=== PATIENT | male | born 1940 | race Native Hawaiian/Other Pacific Islander ===

== ENCOUNTER 2024-05-06 08:01 | Inpatient (IN) | payer MEDICARE, MEDICAID, SELFPAY ==
[2024-05-06] VITALS (90 sets, daily range): BP systolic 57–147; BP diastolic 34–96; PULSE 76–154; RESP 16–30; TEMP 34.5–38.3; O2SAT 88–100; BMI 21.9; BMI 18.3; BMI 16.4
--- NOTE | 2024-05-06 08:02 | PC.NURSE ---
PT ARRIVED BY AMBULANCE IN RESPIRATORY DISTRESS. PER MEDIC, FAMILY WOKE AT 0700 AND FOUND PT STRUGGLING TO BREATH AND FAMILY GAVE NEB TREATMENT. MEDIC PUT PT ON CPAP IN ROUTE. PT ARRIVED NOT TALKING, COLD TO TOUCH, EXTREMITIES MOTTLED. DR. SUN NOTIFIED
--- NOTE | 2024-05-06 08:03 | PC.NURSE ---
DR. SUN IN ROOM TO SEE PT
--- NOTE | 2024-05-06 08:06 | PC.NURSE ---
Dr. Hernandez verbal order for ROXANNE YEPEZ for assistance; pt still have pulses at this time. CODE BLUE initiated at this time.
[2024-05-06] MEDS: ETOMIDATE INJ 2 MG/ML VIAL 10 ML 20 MG IVP ×2 (08:11→10:14)
[2024-05-06] MEDS: ROCURONIUM INJ 10 MG/ML VIAL 10 ML 50 MG IVP (08:11)
--- NOTE | 2024-05-06 08:16 | EDNOTE_ITS ---
<Statement entered by Leonard Hernandez MD - 05/06/24 19:02> As co-signing physician, I was present and available for consult prn. I concur with the plan and care as documented by the midlevel provider. ED SOB =RME/HPI General Chief Complaint: Shortness of Breath/Dyspnea Stated Complaint: SOB Time Seen by Provider: 05/06/24 08:18 Arrival date/time: 05/06/24 08:01 RME / HPI RME / HPI Narrative: Patient is a 83 year old male presenting to the ED BIBA form home for reported difficulty breathing, patient arrives on CPAP. Nonverbal at this time. Known history of AFIB, lung cancer. Related Data Home Medications ?Medication ?Instructions ?Recorded ?Confirmed albuterol sulfate 2.5 mg/3 mL 2.5 mg inhalation Q6H PRN 09/08/22 03/25/23 (0.083 %) solution for nebulization Shortness Of Breath Or Wheezing albuterol sulfate 90 mcg/actuation 90 mcg inhalation TID PRN 09/08/22 03/25/23 aerosol inhaler (Ventolin HFA) Shortness Of Breath Or Wheezing metformin 500 mg tablet 500 mg PO BID 09/08/22 03/25/23 prednisone 10 mg tablet 10 mg PO QDAY 09/08/22 03/25/23 simvastatin 20 mg tablet 20 mg PO HS 09/08/22 03/25/23 Previous Rx's ?Medication ?Instructions ?Recorded fluticasone fur. 200 mcg-umeclid 1 inh inhalation QDAY #60 ea 03/29/23 62.5 mcg-vilant 25 mcg inhalat.powder (Trelegy Ellipta) albuterol sulfate 2.5 mg/3 mL 2.5 mg (3 mL) inhalation Q4H PRN 07/20/23 (0.083 %) solution for nebulization shortness of breath or wheezing #90 mL albuterol sulfate 90 mcg/actuation 2 inh inhalation Q4H PRN shortness 07/20/23 aerosol inhaler of breath or wheezing #8.5 grams Allergies Allergy/AdvReac Type Severity Reaction Status Date / Time No Known Allergies Allergy Verified 04/12/24 04:22 Review of Systems Review of Systems ROS Unobtainable: unobtainable due to mental status ED Exam Narrative Physical exam: GEN. APPEARANCE: The patient arrives in respiratory distress, lying on the gurney, frail, cachectic, GCS 6, cold to the touch. VITALS: All vitals were reviewed and the pulse ox is 80% on Cpap, indicates for intubation HEENT: Normocephalic, atraumatic. Pupils are equal and reactive. Oral mucosa is moist. Patent Nares NECK: Supple, nontender, no thyromegaly, no meningismus, no JVD, no step offs CHEST: Symmetrical, atraumatic, and with equal expansion , Nontender on palpation no deformity and no crepitus. CARDIOVASCULAR: Patient is tachycardic no murmur or gallop rub LUNGS:Agonal breathing ABDOMEN: Soft, flat, nontender to palpation, no guarding or rebound tenderness. There are no abnormal masses palpated. Active and normal bowel sounds. EXTREMITIES: Nontender. No edema. No cyanosis. Patient is able to move all 4 extremities well, with full ROM and good CSM. SKIN: cold to touch and dry, no jaundice or rashes noted. MUSCULOSKELETAL: No lubar or midline bony tenderness. There is no CVA tenderness. No paraspinal muscle spasm or tenderness. NEURO: Patient is GCS 6. PSYCHIATRIC: Patient unconscious Rectal Exam Rectal exam: Present heme (+) stool and black stool Course Course Course Narrative: 0835 Sepsis alert initiated. Orders made at this time are congruent with ED Adult Sepsis Order List. Re-evaluation is to be completed 0905 Sepsis reassessment performed consisting of lab review, vitals, physical exam including auscultation of heart, lungs, and visual evaluation of capillary refills, mucosal membranes and extremities 1140 Discussed with Family, states the patient was extremely verbal about wanting to maintain being a full code. Patient was discussed with [facility]. They do not have interventional pulmonology available at their facility. Ultimately, the best we can do at this point is to admit the patient here at [facility] and treat him with antibiotics. Quality Measures Possible source: pulmonary Blood cultures ordered: yes Antibiotic ordered: Yes Pertinent labs: 05/06/24 05/06/24 05/06/24 08:38 10:13 12:10 Lactic Acid 3.9 H mMol/L 5.6 H* mMol/L (0.4-2.0) (0.4-2.0) Procalcitonin 0.13 ng/ml (0.0-0.49) sepsis Orders Category Date Time Status Admit to Inpatient Status Routine Admission 05/06/24 17:38 Active Patient Condition Routine Admission 05/06/24 17:38 Ordered 24 HR Medical Restraints Q2HR Care 05/06/24 08:10 Active Bedside COVID-19 Antigen Test NOW Care 05/06/24 08:[address] Screening NOW Care 05/06/24 08:21 Active Temperature Logging Operator STAT Care 05/06/24 08:36 Active Continuous Pulse Oximetry STAT Care 05/06/24 08:36 Completed EKG (ED ONLY) *Do not use* NOW Care 05/06/24 08:20 Completed Emergency Titration Protocol Stat Care 05/06/24 10:09 Ordered Occult Blood,Stool (Nursing) NOW Care 05/06/24 09:18 Active Strict Intake and Output Routine Care 05/06/24 08:[address] chest abdomen pelvis w Stat Exams 05/06/24 08:[address] head/brain wo con Stat Exams 05/06/24 08:19 Completed EKG (ED Only) Stat Exams 05/06/24 08:19 Ordered XR chest 1V SEPSIS PROTOCOL Stat Exams 05/06/24 08:38 Completed ABG [Arterial Blood Gas] Stat Lab 05/06/24 06:25 Completed Acetaminophen Stat Lab 05/06/24 17:42 Completed Arterial Blood Gas Stat Lab 05/06/24 09:15 Completed B-Type Natriuretic Peptide Stat Lab 05/06/24 09:02 Completed Blood Culture (Lab) Stat Lab 05/06/24 08:55 Received CBC Stat Lab 05/06/24 08:38 Completed CMP [Comprehensive Metabolic Panel] Stat Lab 05/06/24 10:13 Completed Drug Screen,Urine Stat Lab 05/06/24 08:37 Completed LDH (Lactate Dehydrogenase) Stat Lab 05/06/24 10:13 Completed Lactate (Lactic Acid) Stat Lab 05/06/24 08:38 Completed Lactic Acid, 3 HR Stat Lab 05/06/24 12:10 Completed Lipase Stat Lab 05/06/24 10:13 Completed Magnesium Stat Lab 05/06/24 10:13 Completed Occult Blood, Stool (LAB) Stat Lab 05/06/24 09:20 Completed PT [Prothrombin Time with INR] Stat Lab 05/06/24 08:38 Completed PTT [Partial Thromboplastin Time] Stat Lab 05/06/24 08:38 Completed Phosphorous Stat Lab 05/06/24 10:13 Completed Procalcitonin Stat Lab 05/06/24 10:13 Completed Sputum Culture and Gram Stain Stat Lab 05/06/24 08:30 Results TSH [Thyroid Stimulating Hormone] Stat Lab 05/06/24 10:13 Completed Troponin I Stat Lab 05/06/24 10:13 Completed UA [Urinalysis] Stat Lab 05/06/24 08:37 Completed Urine Culture Stat Lab 05/06/24 08:37 Received Acetaminophen Ivpb [Ofirmev Inj] Med 05/06/24 17:10 Discontinued 1,000 mg in 100 ml IV X1 Acetaminophen Supp [Tylenol Supp] Med 05/06/24 17:37 Active 650 mg CA Q4HR PRN Acetaminophen Tab [Tylenol Tab] Med 05/06/24 17:37 Active 650 mg PO Q4HR PRN Adenosine 6mg Inj [Adenocard Inj] Med 05/06/24 08:11 Discontinued 24 mg .ROUTE .STK-MED ONE Diltiazem Inj [Cardizem Inj] Med 05/06/24 08:19 Discontinued 15 mg IV X1 ONE Diltiazem Inj [Cardizem Inj] Med 05/06/24 17:08 Discontinued 15 mg IV X1 ONE Etomidate Inj [Amidate Inj] Med 05/06/24 08:03 Discontinued 20 mg .ROUTE .STK-MED ONE Etomidate Inj [Amidate Inj] Med 05/06/24 08:14 Discontinued 20 mg IVP X1 ONE Etomidate Inj [Amidate Inj] Med 05/06/24 10:13 Discontinued 20 mg IVP X1 ONE Piper/Tazo 3.375 gm [Zosyn] Med 05/06/24 08:36 Discontinued 3.375 gm in 50 ml IV X1 Piper/Tazo Inj [Zosyn Inj] 3.375 gm Med 05/06/24 17:11 Active Sodium Chloride 0.9% (P) [Ns 0.9% (P)] 50 ml IV Q6HR Propofol 1,000 mg Ivpb [Diprivan Ivpb] Med 05/06/24 09:20 Active 1,000 mg in 100 ml IV 5 mcg/kg/min Rocuronium Inj [Zemuron Inj] Med 05/06/24 08:03 Discontinued 100 mg .ROUTE .STK-MED ONE Rocuronium Inj [Zemuron Inj] Med 05/06/24 08:13 Discontinued 50 mg IVP X1 ONE Sodium Chloride 0.9% 1000 ml [Ns] 1,638 ml Med 05/06/24 12:39 Discontinued IV 1,638 mls/hr Vancomycin Inj 1,000 mg Med 05/06/24 12:41 Discontinued Sodium Chloride 0.9% 250 ml [Ns] 250 ml IV X1 Vancomycin Pharmacy to Dose Med 05/06/24 17:15 Active 1 each IV QDAY fentaNYL 2,500 MCG/250 ML BAG [Sublimaze Inj 2,500 MCG/ Med 05/06/24 09:22 Active 250 ML BAG] 2,500 mcg in 250 ml IV 25 mcg/hr Code Status Routine Oth 05/06/24 17:37 Completed Volume Ventilator Stat RT 05/06/24 Active Vital Signs Vital signs: Vital Signs Temperature 95.8 F L 05/06/24 08:02 Pulse Rate 154 H 05/06/24 08:02 Respiratory Rate 23 H 05/06/24 08:02 Blood Pressure 127/93 H 05/06/24 08:02 Pulse Oximetry (%) 88 L 05/06/24 08:02 Oxygen Delivery Method CPAP 05/06/24 08:02 Procedures -ED Intubation sedative: Etomidate Mg Given: 20 paralytic: Rocuronium Mg Given: 50 Laryngoscope: fiber optic video scope Assist Device Used: fiber optic device ET Tube Size: 7.5 ET Tube Uncuffed: No Tube Secured Depth (cm): 24 Tube Secured Location: other (gum) Tube Placement Confirmation: visualized tube passing through cords and equal breath sounds bilaterally Patient Tolerated Procedure: well and no complications Intubation Complications: none Shortness of Breath / Dyspnea Patient data External records reviewed:: [facility] previous records and EMS form Clinical information provided by:: EMS Social determinants that could affect healthcare access:: none Patient has the following chronic illnesses:: AFIB, lung cancer How is presenting disease/condition affected by chronic disease/condition?: exacerbated by Evaluation data The following diagnostics were reviewed and interpreted by me:: lab results and radiology exam(s) Lab and/or radiology exams considered but not ordered:: none Interpretation Summary: Ordering Physician: Leonard Hernandez MD Date of Service: 05/06/24 Procedure(s): CT head/brain wo con Accession Number(s): [id number] cc: Zion Pérez MD; Leonard Hernandez MD; Camilo Wong MD~ Examination: CT brain head without contrast. 2-D sagittal coronal reconstructions Date and time of exam:April 09, 2024 1119 hrs. Indications: Cardiopulmonary arrest CTDI: vol (mGy):46.2 DLP: (mGycm):974 Technique: Multiple CT axial sections of the brain have been obtained, 5 mm slice thickness. Contrast has not been administered. 2-D sagittal, coronal reconstructions have been obtained Low dose protocols were performed. One or more of the following dose reduction techniques were used; automated exposure control, adjustment of the mA and/or KV according to patient size, use of iterative reconstruction technique. Findings: No significant ventricular enlargement. Intra-axial or extra-axial hemorrhage density is not seen. No mass effect or midline shift Basal cisterns are not remarkable. Fourth ventricle is midline. Cranial vault intact. Impression: Negative for acute hemorrhage, mass effect or midline shift Dictated By: Camilo Wong MD Signed By: <Electronically signed by Camilo Wong MD in OV> 05/06/24 1158 Ordering Physician: Leonard Hernandez MD Date of Service: 05/06/24 Procedure(s): CT chest abdomen pelvis w Accession Number(s): [id number] cc: Zion Pérez MD; Leonard Hernandez MD; Camilo Wong MD~ Examination: CT chest with intravenous contrast CT abdomen with intravenous contrast CT pelvis with intravenous contrast 2-D coronal and sagittal reconstructions Time of exam: May 06, 2024 11:20 AM Indication: Status post cardiopulmonary arrest, post intubation this morning CTDI: vol (mGy) : 8.49 DLP: (mGycm): 565 Technique: Multiple axial images of the chest, abdomen and pelvis with intravenous contrast, 3.0 mm slice thickness. Images obtained post intravenous injection Isovue 370 60 cc 2-D sagittal and coronal reconstructions. Low dose protocols were performed. One or more of the following dose reduction techniques were used; automated exposure control, adjustment of the mA and/or KV according to patient size, use of iterative reconstruction technique. 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 This mass occludes the upper and lower left bronchial tree Are a no thoracic aortic aneurysmal dilatation are normal in level of the Call No pulmonary artery emboli Moderate right mild to moderate left pleural fluid probably 60 pneumonia diffusely in the left upper lobe Moderate vascular congestion Pericardial effusion with focal fluidic in the pericardium, left side laterally measuring up to 26 mm on the right side anteriorly measuring 20 mm on was No focal liver or splenic lesions No definite gallstones There is aorta iliac stet which is opacified with infrarenal abdominal aorta 6.9 cm transverse dimension No bowel obstruction or diverticulitis Large amount of stool in the rectum No significant prostatomegaly Impression: 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 Dictated By: Camilo Wong MD Signed By: <Electronically signed by Camilo Wong MD in OV> 05/06/24 1158 Medications / Prescriptions Medications or Prescriptions considered but not ordered:: none Medication administrations:: Medication Administration History Acetaminophen (Acetaminophen 325 Mg Tablet) 650 mg PO Q4HR PRN PRN Reason: PAIN SCALE 1-3 (mild Stop: 06/05/24 17:36 Acetaminophen (Acetaminophen Supp 650 Mg Supp) 650 mg CA Q4HR PRN PRN Reason: PAIN SCALE 1-3 (mild Stop: 06/05/24 17:36 Propofol (Diprivan Ivpb) 1,000 mg in 100 mls @ 1.633 mls/hr IV .Q24H PRN; Protocol PRN Reason: PER PROTOCOL Stop: 06/05/24 09:19 Last Titration: 05/06/24 18:12 Dose: 0 mcg/kg/min, 0 mls/hr Documented By: Titration: 05/06/24 18:00 Dose: 25 mcg/kg/min, 8.165 mls/hr Documented By: Titration: 05/06/24 17:05 Dose: 25 mcg/kg/min, 8.165 mls/hr Documented By: Titration: 05/06/24 17:00 Dose: 25 mcg/kg/min, 8.165 mls/hr Documented By: Titration: 05/06/24 14:00 Dose: 30 mcg/kg/min, 9.798 mls/hr Documented By: Titration: 05/06/24 13:20 Dose: 30 mcg/kg/min, 9.798 mls/hr Documented By: Titration: 05/06/24 13:15 Dose: 30 mcg/kg/min, 9.798 mls/hr Documented By: Titration: 05/06/24 13:10 Dose: 25 mcg/kg/min, 8.165 mls/hr Documented By: Titration: 05/06/24 13:05 Dose: 20 mcg/kg/min, 6.532 mls/hr Documented By: Titration: 05/06/24 13:00 Dose: 15 mcg/kg/min, 4.899 mls/hr Documented By: Titration: 05/06/24 12:30 Dose: 10 mcg/kg/min, 3.266 mls/hr Documented By: Titration: 05/06/24 12:00 Dose: 10 mcg/kg/min, 3.266 mls/hr Documented By: Titration: 05/06/24 11:34 Dose: 10 mcg/kg/min, 3.266 mls/hr Documented By: Titration: 05/06/24 11:00 Dose: 10 mcg/kg/min, 3.266 mls/hr Documented By: Titration: 05/06/24 10:45 Dose: 10 mcg/kg/min, 3.266 mls/hr Documented By: Titration: 05/06/24 10:40 Dose: 15 mcg/kg/min, 4.899 mls/hr Documented By: Titration: 05/06/24 10:35 Dose: 20 mcg/kg/min, 6.532 mls/hr Documented By: Titration: 05/06/24 10:31 Dose: 25 mcg/kg/min, 8.165 mls/hr Documented By: Titration: 05/06/24 10:20 Dose: 30 mcg/kg/min, 9.798 mls/hr Documented By: Titration: 05/06/24 10:15 Dose: 30 mcg/kg/min, 9.798 mls/hr Documented By: Titration: 05/06/24 10:10 Dose: 25 mcg/kg/min, 8.165 mls/hr Documented By: Titration: 05/06/24 10:05 Dose: 20 mcg/kg/min, 6.532 mls/hr Documented By: Titration: 05/06/24 10:00 Dose: 15 mcg/kg/min, 4.899 mls/hr Documented By: Titration: 05/06/24 09:51 Dose: 10 mcg/kg/min, 3.266 mls/hr Documented By: Admin: 05/06/24 09:46 Dose: 5 mcg/kg/min, 1.633 mls/hr Documented By: GM Co-signed By: [facility] Fentanyl Citrate (Sublimaze Inj 2,500 Mcg/250 Ml Bag) 2,500 mcg in 250 mls @ 2.5 mls/hr IV .Q24H PRN; Protocol PRN Reason: PER PROTOCOL Stop: 05/11/24 09:21 Last Titration: 05/06/24 18:00 Dose: 50 mcg/hr, 5 mls/hr Documented By: Titration: 05/06/24 17:00 Dose: 50 mcg/hr, 5 mls/hr Documented By: Titration: 05/06/24 16:00 Dose: 50 mcg/hr, 5 mls/hr Documented By: Titration: 05/06/24 15:00 Dose: 50 mcg/hr, 5 mls/hr Documented By: Titration: 05/06/24 14:00 Dose: 50 mcg/hr, 5 mls/hr Documented By: Titration: 05/06/24 13:08 Dose: 50 mcg/hr, 5 mls/hr Documented By: Titration: 05/06/24 12:30 Dose: 25 mcg/hr, 2.5 mls/hr Documented By: Titration: 05/06/24 12:00 Dose: 25 mcg/hr, 2.5 mls/hr Documented By: Titration: 05/06/24 11:30 Dose: 25 mcg/hr, 2.5 mls/hr Documented By: Titration: 05/06/24 11:00 Dose: 25 mcg/hr, 2.5 mls/hr Documented By: Titration: 05/06/24 10:30 Dose: 25 mcg/hr, 2.5 mls/hr Documented By: Titration: 05/06/24 10:10 Dose: 50 mcg/hr, 5 mls/hr Documented By: Titration: 05/06/24 10:00 Dose: 25 mcg/hr, 2.5 mls/hr Documented By: Admin: 05/06/24 09:46 Dose: 25 mcg/hr, 2.5 mls/hr Documented By: GM Co-signed By: [facility] Piperacillin Sod/Tazobactam (Sod 3.375 gm/ Sodium Chloride) 50 mls @ 100 mls/hr IV Q6HR KEM Stop: 05/13/24 17:10 Last Infusion: 05/06/24 17:55 Dose: Infused Documented By: Admin: 05/06/24 17:24 Dose: 100 mls/hr Documented By: Norepinephrine Bitartrate (Levophed In Ns 16mg/250ml) 16 mg in 250 mls @ 2.126 mls/hr IV .Q24H PRN; Protocol PRN Reason: PER protocol Stop: 06/05/24 17:57 Norepinephrine Bitartrate (Levophed In Ns 16mg/250ml) 16 mg in 250 mls @ 2.126 mls/hr IV .Q24H PRN; Protocol PRN Reason: PER PROTOCOL Stop: 06/05/24 17:59 Last Titration: 05/06/24 19:00 Dose: 0.14 mcg/kg/min, 5.953 mls/hr Documented By: Titration: 05/06/24 18:55 Dose: 0.16 mcg/kg/min, 6.804 mls/hr Documented By: Titration: 05/06/24 18:50 Dose: 0.16 mcg/kg/min, 6.804 mls/hr Documented By: Titration: 05/06/24 18:45 Dose: 0.18 mcg/kg/min, 7.654 mls/hr Documented By: Titration: 05/06/24 18:39 Dose: 0.18 mcg/kg/min, 7.654 mls/hr Documented By: Titration: 05/06/24 18:35 Dose: 0.18 mcg/kg/min, 7.654 mls/hr Documented By: Titration: 05/06/24 18:26 Dose: 0.2 mcg/kg/min, 8.505 mls/hr Documented By: Titration: 05/06/24 18:22 Dose: 0.2 mcg/kg/min, 8.505 mls/hr Documented By: Titration: 05/06/24 18:18 Dose: 0.12 mcg/kg/min, 5.103 mls/hr Documented By: Titration: 05/06/24 18:13 Dose: 0.1 mcg/kg/min, 4.252 mls/hr Documented By: Titration: 05/06/24 18:10 Dose: 0.09 mcg/kg/min, 3.827 mls/hr Documented By: Titration: 05/06/24 18:05 Dose: 0.07 mcg/kg/min, 2.977 mls/hr Documented By: Admin: 05/06/24 18:00 Dose: 0.05 mcg/kg/min, 2.126 mls/hr Documented By: Pharmacy Consult (Vancomycin Pharmacy To Dose 1 Each Each) 1 each IV QDAY KEM Stop: 06/05/24 17:14 Last Admin: 05/06/24 17:25 Dose: Not Given Documented By: Non-Admin Reason: Duplicate Medication on eMAR Discontinued Medications Adenosine (Adenosine Inj 3 Mg/Ml Vial) Confirm Administered Dose 18 mg .ROUTE .STK-MED ONE Stop: 05/06/24 08:12 Last Admin: 05/06/24 08:45 Dose: Not Given Documented By: Non-Admin Reason: Change of Condition Diltiazem HCl (Diltiazem Inj 5 Mg/Ml Vial 5 Ml) 15 mg IV X1 ONE Stop: 05/06/24 08:20 Last Admin: 05/06/24 08:49 Dose: Not Given Documented By: Non-Admin Reason: Cancelled by Provider Diltiazem HCl (Diltiazem Inj 5 Mg/Ml Vial 5 Ml) 15 mg IV X1 ONE Stop: 05/06/24 17:09 Last Admin: 05/06/24 17:13 Dose: 15 mg Documented By: Etomidate (Etomidate Inj 2 Mg/Ml Vial 10 Ml) Confirm Administered Dose 20 mg .ROUTE .STK-MED ONE Stop: 05/06/24 08:04 Last Admin: 05/06/24 08:11 Dose: Not Given Documented By: Non-Admin Reason: Duplicate Medication on eMAR Etomidate (Etomidate Inj 2 Mg/Ml Vial 10 Ml) 20 mg IVP X1 ONE Stop: 05/06/24 08:15 Last Admin: 05/06/24 08:11 Dose: 20 mg Documented By: Etomidate (Etomidate Inj 2 Mg/Ml Vial 10 Ml) 20 mg IVP X1 ONE Stop: 05/06/24 10:14 Last Admin: 05/06/24 10:14 Dose: 20 mg Documented By: Piperacillin/Tazobactam/Dextrose (Zosyn) 3.375 gm in 50 mls @ 100 mls/hr IV X1 ONE Stop: 05/06/24 09:05 Last Infusion: 05/06/24 09:39 Dose: Infused Documented By: Admin: 05/06/24 09:08 Dose: 100 mls/hr Documented By: [facility] Sodium Chloride (Ns) 1,638 mls @ 1,638 mls/hr 30 ml/kg infuse over 60 min (1638 ml) IV .Q1H ONE Stop: 05/06/24 13:38 Last Infusion: 05/06/24 14:21 Dose: Infused Documented By: Admin: 05/06/24 12:44 Dose: 1,638 mls/hr Documented By: Vancomycin HCl 1,000 mg/ (Sodium Chloride) 250 mls @ 150 mls/hr IV X1 ONE Stop: 05/06/24 14:20 Last Infusion: 05/06/24 14:39 Dose: Infused Documented By: Admin: 05/06/24 12:57 Dose: 150 mls/hr Documented By: Acetaminophen (Ofirmev Inj) 1,000 mg in 100 mls @ 250 mls/hr IV X1 ONE Stop: 05/06/24 17:33 Last Infusion: 05/06/24 17:55 Dose: Infused Documented By: Admin: 05/06/24 17:18 Dose: 250 mls/hr Documented By: Norepinephrine Bitartrate (Levophed In Ns 16mg/250ml) Confirm Administered Dose 16 mg in 250 mls @ ud IV .STK-MED ONE Stop: 05/06/24 17:51 Last Admin: 05/06/24 18:00 Dose: Not Given Documented By: MO Non-Admin Reason: Duplicate Medication on eMAR Rocuronium Left Hand (Rocuronium Inj 10 Mg/Ml Vial 10 Ml) Confirm Administered Dose 100 mg .ROUTE .STK-MED ONE Stop: 05/06/24 08:04 Last Admin: 05/06/24 08:11 Dose: Not Given Documented By: MO Non-Admin Reason: Duplicate Medication on eMAR Rocuronium Left Hand (Rocuronium Inj 10 Mg/Ml Vial 10 Ml) 50 mg IVP X1 ONE Stop: 05/06/24 08:14 Last Admin: 05/06/24 08:11 Dose: 50 mg Documented By: MO Co-signed By: HAZEL see above Consultations Consultation(s) initiated? (list below): Yes Diagnosis Shortness of Breath Differential Diagnosis: community acquired pneumonia and pulmonary embolism Most likely diagnosis given after review of the tests above:: sepsis, hemacult positive stool. Admission Indicated Admission indicated?: indicated Admission Request Was there a request for admission?: Yes Admission Attestation Admission request attestation: Discussed case with [] from Hospitalist service regarding admission. Discussed patients ED course, exam findings, labs, and radiology results. The Hospitalist [agrees,declines] to accept the patient for admission. Disposition Plan Disposition Plan: Admit Critical Care Time Critical Care Time Critical Care Time: Yes Total Critical Care Time (min.): 120 Attestation: The high probability of sudden, clinically significant deterioration in the patient?s condition required the highest level of my preparedness to intervene urgently. The services I provided to this patient were to treat and/or prevent clinically significant deterioration. Services included the following: chart data review, reviewing nursing notes and/or old charts, documentation time, domestic travel consultant collaboration regarding findings and treatment options, medication orders and management, direct patient care, vital sign assessments and ordering, interpreting and reviewing diagnostic studies and lab tests. Aggregate critical care time includes only time during which I was engaged in work directly related to the patient?s care, as described above, whether at bedside or elsewhere in the Emergency Department. It did not include time spent performing other reported procedures or the services of residents, students, nurses or physician assistants. Discharge Plan Plan Patient Disposition: Admit Acute Care w/in Hospital Patient condition on transfer: Stable Problem List Clinical Impression: Acute respiratory failure
--- NOTE | 2024-05-06 08:18 | PC.NURSE ---
DR. SUN AT BEDSIDE ATTEMPTING TO INSERT LEFT IJ. UNSUCCESSFUL INSERTION. PRESSURE APPLIED OVER GAUZE AND TAPED OVER.
--- NOTE | 2024-05-06 08:19 | XR_ITS ---
Examination: CT brain head without contrast. 2-D sagittal coronal reconstructions Date and time of exam:April 09, 2024 1119 hrs. Indications: Cardiopulmonary arrest CTDI: vol (mGy):46.2 DLP: (mGycm):974 Technique: Multiple CT axial sections of the brain have been obtained, 5 mm slice thickness. Contrast has not been administered. 2-D sagittal, coronal reconstructions have been obtained Low dose protocols were performed. One or more of the following dose reduction techniques were used; automated exposure control, adjustment of the mA and/or KV according to patient size, use of iterative reconstruction technique. Findings: No significant ventricular enlargement. Intra-axial or extra-axial hemorrhage density is not seen. No mass effect or midline shift Basal cisterns are not remarkable. Fourth ventricle is midline. Cranial vault intact. Impression: Negative for acute hemorrhage, mass effect or midline shift
--- NOTE | 2024-05-06 08:19 | XR_ITS ---
Examination: CT chest with intravenous contrast CT abdomen with intravenous contrast CT pelvis with intravenous contrast 2-D coronal and sagittal reconstructions Time of exam: May 06, 2024 11:20 AM Indication: Status post cardiopulmonary arrest, post intubation this morning CTDI: vol (mGy) : 8.49 DLP: (mGycm): 565 Technique: Multiple axial images of the chest, abdomen and pelvis with intravenous contrast, 3.0 mm slice thickness. Images obtained post intravenous injection Isovue 370 60 cc 2-D sagittal and coronal reconstructions. Low dose protocols were performed. One or more of the following dose reduction techniques were used; automated exposure control, adjustment of the mA and/or KV according to patient size, use of iterative reconstruction technique. 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 This mass occludes the upper and lower left bronchial tree Are a no thoracic aortic aneurysmal dilatation are normal in level of the Call No pulmonary artery emboli Moderate right mild to moderate left pleural fluid probably 60 pneumonia diffusely in the left upper lobe Moderate vascular congestion Pericardial effusion with focal fluidic in the pericardium, left side laterally measuring up to 26 mm on the right side anteriorly measuring 20 mm on was No focal liver or splenic lesions No definite gallstones There is aorta iliac stet which is opacified with infrarenal abdominal aorta 6.9 cm transverse dimension No bowel obstruction or diverticulitis Large amount of stool in the rectum No significant prostatomegaly Impression: 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
--- NOTE | 2024-05-06 08:36 | PC.NURSE ---
Pt started on Biar Hugger warmer at this time with warm blankets as well.
--- NOTE | 2024-05-06 08:38 | XR_ITS ---
Examination: AP chest single view Technique: AP portable supine chest single view Exam date and time: May 06, 2024 0902 hrs. Indications: Sepsis protocol Comparison: April 12, 2024 Findings: Large pulmonary mass left upper lobe again noted Interval significant pneumonia left upper lobe Mild prominence left ventricle Significant pneumonia left base with moderate left pleural fluid Endotracheal tube tip 29 mm above keyla Moderate osteopenia Impression: Interval significant left upper lobe left base pneumonia Tracheal tube tip 29 mm above keyla
--- NOTE | 2024-05-06 08:40 | PC.NURSE ---
Attempted to insert NG tube in both nares multiple times (3 times on each Nares); unssucessful. Attempted to insert OG tube 4 times; unsuccessful. Unable to insert OG/NG tube at this time.
[2024-05-06 08:43] LABS: Lactate (Lactic Acid) 3.9 mMol/L (0.4-2.0)
[2024-05-06 08:47] LABS: Basophils # (Auto) 0.1 Thou/mm3 (0.0-0.2); Basophils % (Auto) 0 % (0-2.5); Eosinophils % (Auto) 0 % (0-10); Hematocrit 41.1 % (41.0-53.0); Hemoglobin 12.4 g/dL (13.5-16.0); Immature Granulocytes % (Auto) 1 % (0-0); Immature Granulocytes Auto 0.25 Thou/mm3 (0.00-0.00); Lymphocytes # (Auto) 2.3 Thou/mm3 (1.0-4.8); Lymphocytes % (Auto) 12 % (10-50); Mean Corpuscular HGB Conc 30.2 g/dl (31.0-37.0); Mean Corpuscular Hemoglobin 23.2 pg (25.0-35.0); Mean Corpuscular Volume 77 fL (80-100); Monocytes # (Auto) 1.7 Thou/mm3 (0.0-0.8); Monocytes % (Auto) 9 % (0-12); Neutrophils # (Auto) 14.9 Thou/mm3 (1.8-7.7); Neutrophils % (Auto) 78 % (37-80); Nucleated Red Blood Cell # 0.04 Thou/mm3 (0.00-0.00); Nucleated Red Blood Cell % 0 /100 WBC (0); Platelet Count 348 Thou/mm3 (140-440); RDW Standard Deviation 54.2 fL (35.1-43.9); Red Blood Count 5.35 Miln/mm3 (4.50-5.90); White Blood Count 19.2 Thou/mm3 (3.8-10.6)
--- NOTE | 2024-05-06 08:49 | PC.NURSE ---
Spoke to DR. SUN; per Dr. SUN, do not give diltiazem at this time; pt's HR 85 and NSR. Also, draw blood cultures first before giving Zosyn.
--- NOTE | 2024-05-06 08:50 | PC.NURSE ---
Lab called to draw pt's blood cultures at this time.
--- NOTE | 2024-05-06 09:00 | PC.NURSE ---
PT ARRIVED WITH CARDIAC RHYTHM SVT. THEN WENT IN AND OUT OF SVT AND AFIB/RVR BEFORE CONVERTING TO SINUS RHYTHM.
[2024-05-06 09:06] LABS: INR 1.1 (0.9-1.3); Partial Thromboplastin Time 28.2 Seconds (22.0-36.0)
[2024-05-06] MEDS: PIPER/TAZO 3.375 GM 3.375 GM/50 ML BAG IV (09:08)
[2024-05-06 09:22] LABS: Base Excess 8 (-3-3); HCO3 34 mEq/L (20-26); Inspired Oxygen, FIO2 100 %; O2 Saturation 101 % (91-98); PCO2 54 mmHg (32.0-48.0); PO2 406 mmHg (83-108); Puncture Site Right Brachial
[2024-05-06 09:23] LABS: Allen Test Not Performed
--- NOTE | 2024-05-06 09:36 | PC.NURSE ---
DR. SUN AT BEDSIDE WITH FAMILY, TALKING TO DAUGHTER, DAVID GARCIA.
[2024-05-06] MEDS: fentaNYL 2,500 MCG/250 ML BAG 2,500 MCG/250 ML BAG IV (09:46)
[2024-05-06] MEDS: PROPOFOL 1,000 MG IVPB 1,000 MG/100 ML VIAL 1.633 MG IV (09:46)
[2024-05-06 09:53] LABS: Collection Type, Urine Catheter
[2024-05-06 09:55] LABS: OBS Card Lot # 23001; OBS Developer Lot # 16006; OBS Performed By CHATK; OBS QC OK? Yes; Occult Blood, Stool Positive (Negative)
--- NOTE | 2024-05-06 10:09 | PC.NURSE ---
Dr. Hernandez notified that pt bucking the vent and moving extremities. Dr. Hernandez verbal order with readback, Titrate fentanyl drip up to 50mcg/hr.
[2024-05-06 10:15] LABS: B-Type Natriuretic Peptide 192 pg/mL (0-100)
--- NOTE | 2024-05-06 10:29 | PC.NURSE ---
Addendum entered by Fracisco Littlejohn RN 05/06/24 10:32: Per Dr. HERNANDEZ, Titrate down fentanyl drip per protocol as well. Original Note: Pt's BP dropped to 81/55 at this time; Dr. Hernandez made aware at bedside at this time. Per Dr. Hernandez, titrate down propofol per protocol.
[2024-05-06 10:31] LABS: Allen Test Not Performed; Base Excess 9 (-3-3); HCO3 34 mEq/L (20-26); Inspired Oxygen, FIO2 45 %; O2 Saturation 97 % (91-98); PCO2 49 mmHg (32.0-48.0); PO2 85 mmHg (83-108); Puncture Site Right Brachial; pH, Arterial 7.45 (7.35-7.45)
[2024-05-06 10:31] LABS: Bilirubin,Urine Negative (Negative); Blood,Urine Negative (Negative); Clarity,Urine Clear (Clear/Hazy); Color,Urine Yellow (Lt Yel-Yel); Glucose, Urine Negative (Negative); Hyaline Casts,Urine < 1 /hpf (0-1); Ketones,Urine Trace (Negative); Leukocyte Esterase,Urine Negative (Negative); Nitrite,Urine Negative (Negative); Protein,Urine 1+ (Neg - Trace); RBC,Urine 5 /hpf (0-3); Specific Gravity,Urine 1.024 (1.001-1.035); Squamous Epithelial Cell,Urine < 1 /hpf (0-5); Urobilinogen,Urine Negative mg/dL (0.0-1.0); WBC,Urine 6 /hpf (0-5)
[2024-05-06 10:38] LABS: Amphetamine/Methamp Scrn,U Negative (Negative); Barbiturate Screen,Urine Negative (Negative); Benzodiazepines Screen,Urine Negative (Negative); Benzoylecgonine Screen, Ur Negative (Negative); Fentanyl Screen,Urine Negative (Negative); Opiate Screen,Urine Negative (Negative); THC Screen,Urine Negative (Negative)
--- NOTE | 2024-05-06 10:42 | PC.NURSE ---
Delmi Velasco (daughter) next of kin contact #: [phone]
[2024-05-06 10:47] LABS: Alanine Aminotransferase 11 U/L (10-49); Albumin, Serum 3.7 gm/dL (3.4-4.8); Albumin/Globulin Ratio 1.5 (1.2-2.2); Alkaline Phosphatase 80 U/L (46-116); Anion Gap 7 (7-16); Aspartate Amino Transferase 26 U/L (0-34); BUN/Creatinine Ratio 21 Ratio (12-20); Bilirubin,Total 1.3 mg/dL (0.3-1.2); Blood Urea Nitrogen 15 mg/dL (9-23); Calcium 10.5 mg/dL (8.3-10.6); Calcium (Corrected) 10.7 mg/dL (8.5-10.1); Carbon Dioxide 31.4 mMol/L (20.0-31.0); Chloride 96 mMol/L (98-107); Creatinine (Component) 0.7 mg/dL (0.6-1.3); Estimated Creatinine Clearance 53.1 mL/min (>60); Globulin 2.5 gm/dL (2.3-3.5); Glucose 212 mg/dL (74-106); LDH (Lactate Dehydrogenase) 333 U/L (120-246); Lipase 38 U/L (12-53); Magnesium 1.8 mg/dL (1.6-2.6); Osmolality,Calculated 275 (275-295); Phosphorous 3.3 mg/dL (2.4-5.1); Potassium 4.2 mMol/L (3.4-5.1); Procalcitonin 0.13 ng/ml (0.0-0.49); Sodium 134 mMol/L (136-145); Thyroid Stimulating Hormone 0.77 uIU/mL (0.55-4.78); Total Protein 6.2 gm/dL (5.7-8.2); Troponin I < 0.020 ng/mL (0.0-0.045); eGFR > 60 See Note
--- NOTE | 2024-05-06 11:35 | PC.NURSE ---
DR. SUN IN CONFERENCE ROOM WITH MICROPHONE OPERATOR TO TALK WITH FAMILY ABOUT CODE STATUS. AT THIS TIME FAMILY STATING PT WANTED EVERYTHING DONE. FAMILY TO TALK AND THEN LET MD KNOW IF ANYTHING CHANGES
[2024-05-06 11:40] LABS: Reflex Lactate? Y
--- NOTE | 2024-05-06 12:00 | PC.NURSE ---
Jason hugger warmer turned off at this time.
--- NOTE | 2024-05-06 12:15 | PC.CC ---
ED Sieve Grader Tender assisted with end of life conversation with Next of Kin daughter Bessy Ma [phone] and family.
--- NOTE | 2024-05-06 12:33 | PC.NURSE ---
AUTOMOTIVE PARTS COUNTER ASSISTANT IN TO SEE PT AND TALK WITH DAUGHTER ABOUT RESULTS OF CT AND LABS.
[2024-05-06 12:35] LABS: Lactic Acid, 3 HR 5.6 mMol/L (0.4-2.0)
[2024-05-06] MEDS: SODIUM CHLORIDE 0.9% 1000 ML 1,638 ML 1638 ML IV (12:44)
[2024-05-06] MEDS: Vancomycin Inj 1,000 MG in SODIUM CHLORIDE 0.9% 250 ML 250 ML 150 MG IV (12:57)
--- NOTE | 2024-05-06 13:12 | PC.NURSE ---
FAMILY IN AND OUT OF ROOM TO SEE PT.
--- NOTE | 2024-05-06 13:13 | PC.NURSE ---
PT'S TANK TOP WAS CUT OFF AND PLACED IN BELONGINGS BAG. ID CARD GIVEN TO DAUGHTER YULIA
--- NOTE | 2024-05-06 13:17 | PC.NURSE ---
REMAINS OFF RAMIN HUGGER DUE TO NORMALIZED TEMP
--- NOTE | 2024-05-06 13:50 | PC.CM ---
Addendum entered by Marimar Cruz RN 05/06/24 18:02: [address] [facility] and informed pt will be admitted to ICU. 1730 Dr. Hernandez stated he spoke to Dr. Munoz and transfer is cancelled. Pt will be admitted to ICU. [address] Hernandez and informed [facility] stated they don't have interventional pulmonology services anymore. He stated he is going to speak to Dr. Munoz and let me know the outcome. 1719 received call from Sari at [facility] that they don't have interventional pulmonology services anymore. Addendum entered by Marimar Cruz RN 05/06/24 15:44: [address] [facility], she wants to speak with Dr. Munoz. Conference call connected. Addendum entered by Marimar Cruz RN 05/06/24 14:32: [address] [facility], spoke to Sari and initiated the transfer request. Addendum entered by Marimar Cruz RN 05/06/24 14:31: 1430 images pushed to [facility] through [facility]. Addendum entered by Marimar Cruz RN 05/06/24 13:56: [address] [facility]. Original Note: 1353 Due to working on a number of ED transfers at the same time, Unable to initiated the transfer request right away. [address] Munoz that pt needs to be transferred to [facility] for continuation of care, pt needs pulmonology services, ICU bed for diagnosis of lung ca.
--- NOTE | 2024-05-06 17:10 | PC.NURSE ---
RN at bedside; pt's HR jumping between 150s to 120's and temp of 101F; Dr. Hernandez made aware. Orders received for medications.
[2024-05-06] MEDS: DILTIAZEM INJ 5 MG/ML VIAL 5 ML 15 MG IV (17:13)
[2024-05-06] MEDS: ACETAMINOPHEN IVPB 1,000 MG/100 ML VIAL 250 MG IV (17:18)
[2024-05-06] MEDS: PIPER/TAZO INJ 3.375 GM in SODIUM CHLORIDE 0.9% (P) 50 ML IV (17:24)
--- NOTE | 2024-05-06 17:58 | PC.NURSE ---
Dr. Hernandez made aware that pt's is hypotensive; verbal orders received to start Levophed according to protocol.
[2024-05-06] MEDS: Norepinephrine/NS 16mg/250ml 16 MG/250 ML BAG 2.126 MG IV (18:00)
--- NOTE | 2024-05-06 18:12 | PC.NURSE ---
Addendum entered by Fracisco Littlejohn RN 05/06/24 18:17: @1812- Per Dr. Carbajal, stop propofol titration at this time as well. Original Note: RN spoke to Dr. Ganga Carbajal for emergency titration protocol; per Dr. Carbajal, Titrate levophed up to 0.1mcg/kg/min and keep fentanyl drip to 50mcg/hr.
--- NOTE | 2024-05-06 18:13 | ESHP_ITS ---
Documentation for date of: 05/06/24 HPI History of Present Illness Chief complaint: status post cardiac arrest History of present illness: The patient is a 83-year-old male with previous medical history of pulmonary mass, COPD on 2 L home oxygen, NIDDM, anemia with previous recent admission at [facility] and [facility] was brought in to the ED due to respiratory distress. He arrived on CPAP. According to the niece at the bedside, during the night he was experience cold sweats, in the morning his saturation started decreased to the 60s and ambulance was called. During his previous admission he had a workup regarding the pulmonary mass, he had BAL, and was recommended to perform biopsy. According to the niece, biopsy was not performed. Regarding his lung mass workup, he was pending MRI and PET scan for staging. She reported that he was significantly weak, physical activity was significantly restricted to going to the restroom. ED course: in the ED patient was intubated to respiratory failure and started on fluids and antibiotics. At approximately 6 PM, his MAP became <65, he was started on the levophed drip. [facility] was contacted for possible transfer, but did not proceed with it due to absence of interventional pulmonology services that could possibly improve patient's quality of life. Patient's decision maker Saul Schofield was contacted and provided with updates regarding his condition and was explained that his condition is critical and that prognosis is poor. She decided to switch CODE STATUS to DNR with Dr. Carbajal and Dr. Dave as witnesses. Review of Systems Review of Systems ROS Unobtainable: unobtainable due to mental status, unobtainable due to medical condition and due to endotracheal tube Exam Vital Signs Temp Pulse Resp BP Pulse Ox O2 Del Method FiO2 101 F H 123 H 18 57/37 L 96 Mechanical Ventilation 45 05/06/24 17:00 05/06/24 18:00 05/06/24 17:00 05/06/24 18:00 05/06/24 17:00 05/06/24 17:00 05/06/24 16:00 Narrative Exam Physical Exam General: Chronically ill-appearing frail elderly male. Sedated, intubated HEENT: Normocephalic, atraumatic, mucous membranes moist. Heart: Regular rate and rhythm, no murmurs. Lungs: Diminished breath sounds. Abdomen: Soft, nondistended, nontender, positive bowel sounds. ?No guarding or rebound tenderness. Neurologic: Sedated, no gross neurological deficit. Extremities: No edema. Skin: No rash or ecchymoses. Results: Labs 05/06/24 08:38 05/06/24 10:13 Labs: Short CBC 05/06/24 Range/Units 08:38 WBC 19.2 H (3.8-10.6) Thou/mm3 Hgb 12.4 L (13.5-16.0) g/dL Hct 41.1 (41.0-53.0) % Plt Count 348 D (140-440) Thou/mm3 BMP 05/06/24 10:13 Sodium 134 L Potassium 4.2 Chloride 96 L Carbon Dioxide 31.4 H BUN 15 Creatinine 0.7 Glucose 212 H Calcium 10.5 Cardiac Enzymes 05/06/24 Range/Units 10:13 Troponin I < 0.020 (0.0-0.045) ng/mL Liver Function 05/06/24 Range/Units 10:13 Total Bilirubin 1.3 H (0.3-1.2) mg/dL AST 26 (0-34) U/L ALT 11 (10-49) U/L Alkaline Phosphatase 80 (46-116) U/L Albumin 3.7 (3.4-4.8) gm/dL Urine 05/06/24 Range/Units 08:37 Urine Color Yellow (Lt Yel-Yel) Urine Clarity Clear (Clear/Hazy) Urine pH 6.0 (5.0-7.0) Ur Specific [place] 1.024 (1.001-1.035) Urine Protein 1+ A (Neg - Trace) Urine Glucose (UA) Negative (Negative) ABG Interpretation ABG results: 05/06/24 05/06/24 06:25 09:15 ABG pH 7.45 7.40 ABG pCO2 49 H 54 H ABG pO2 85 406 H D ABG HCO3 34 H 34 H ABG O2 Saturation 97 101 H ABG Base Excess 9 H 8 H Quality Measures Quality Measures sepsis Current suspected stage: sepsis Possible source: pulmonary Blood cultures ordered: yes Antibiotic ordered: Yes Advance care planning discussed with:: other Medications Home Medications and Allergies Home Medications ?Medication ?Instructions ?Recorded ?Confirmed ?Type albuterol sulfate 2.5 mg/3 mL 2.5 mg inhalation Q6H PRN 09/08/22 03/25/23 History (0.083 %) solution for nebulization Shortness Of Breath Or Wheezing albuterol sulfate 90 mcg/actuation 90 mcg inhalation TID PRN 09/08/22 03/25/23 History aerosol inhaler (Ventolin HFA) Shortness Of Breath Or Wheezing metformin 500 mg tablet 500 mg PO BID 09/08/22 03/25/23 History prednisone 10 mg tablet 10 mg PO QDAY 09/08/22 03/25/23 History simvastatin 20 mg tablet 20 mg PO HS 09/08/22 03/25/23 History Allergies Allergy/AdvReac Type Severity Reaction Status Date / Time No Known Allergies Allergy Verified 04/12/24 04:22 Visit Medications Acetaminophen (Acetaminophen 325 Mg Tablet) 650 mg PO Q4HR PRN PRN Reason: PAIN SCALE 1-3 (mild Stop: 06/05/24 17:36 Acetaminophen (Acetaminophen Supp 650 Mg Supp) 650 mg SC Q4HR PRN PRN Reason: PAIN SCALE 1-3 (mild Stop: 06/05/24 17:36 Propofol (Diprivan Ivpb) 1,000 mg in 100 mls @ 1.633 mls/hr IV .Q24H PRN; Protocol PRN Reason: PER PROTOCOL Stop: 06/05/24 09:19 Last Titration: 05/06/24 18:00 Dose: 25 mcg/kg/min, 8.165 mls/hr Fentanyl Citrate (Sublimaze Inj 2,500 Mcg/250 Ml Bag) 2,500 mcg in 250 mls @ 2.5 mls/hr IV .Q24H PRN; Protocol PRN Reason: PER PROTOCOL Stop: 05/11/24 09:21 Last Titration: 05/06/24 17:00 Dose: 50 mcg/hr, 5 mls/hr Piperacillin Sod/Tazobactam (Sod 3.375 gm/ Sodium Chloride) 50 mls @ 100 mls/hr IV Q6HR KEM Stop: 05/13/24 17:10 Last Infusion: 05/06/24 17:55 Dose: Infused Norepinephrine Bitartrate (Levophed In Ns 16mg/250ml) 16 mg in 250 mls @ 2.126 mls/hr IV .Q24H PRN; Protocol PRN Reason: PER protocol Stop: 06/05/24 17:57 Norepinephrine Bitartrate (Levophed In Ns 16mg/250ml) 16 mg in 250 mls @ 2.126 mls/hr IV .Q24H PRN; Protocol PRN Reason: PER PROTOCOL Stop: 06/05/24 17:59 Last Titration: 05/06/24 18:10 Dose: 0.09 mcg/kg/min, 3.827 mls/hr Pharmacy Consult (Vancomycin Pharmacy To Dose 1 Each Each) 1 each IV QDAY KEM Stop: 06/05/24 17:14 Last Admin: 05/06/24 17:25 Dose: Not Given Discontinued Medications Diltiazem HCl (Diltiazem Inj 5 Mg/Ml Vial 5 Ml) 15 mg IV X1 ONE Stop: 05/06/24 08:20 Last Admin: 05/06/24 08:49 Dose: Not Given Diltiazem HCl (Diltiazem Inj 5 Mg/Ml Vial 5 Ml) 15 mg IV X1 ONE Stop: 05/06/24 17:09 Last Admin: 05/06/24 17:13 Dose: 15 mg Etomidate (Etomidate Inj 2 Mg/Ml Vial 10 Ml) 20 mg IVP X1 ONE Stop: 05/06/24 08:15 Last Admin: 05/06/24 08:11 Dose: 20 mg Etomidate (Etomidate Inj 2 Mg/Ml Vial 10 Ml) 20 mg IVP X1 ONE Stop: 05/06/24 10:14 Last Admin: 05/06/24 10:14 Dose: 20 mg Piperacillin/Tazobactam/Dextrose (Zosyn) 3.375 gm in 50 mls @ 100 mls/hr IV X1 ONE Stop: 05/06/24 09:05 Last Infusion: 05/06/24 09:39 Dose: Infused Sodium Chloride (Ns) 1,638 mls @ 1,638 mls/hr 30 ml/kg infuse over 60 min (1638 ml) IV .Q1H ONE Stop: 05/06/24 13:38 Last Infusion: 05/06/24 14:21 Dose: Infused Vancomycin HCl 1,000 mg/ (Sodium Chloride) 250 mls @ 150 mls/hr IV X1 ONE Stop: 05/06/24 14:20 Last Infusion: 05/06/24 14:39 Dose: Infused Acetaminophen (Ofirmev Inj) 1,000 mg in 100 mls @ 250 mls/hr IV X1 ONE Stop: 05/06/24 17:33 Last Infusion: 05/06/24 17:55 Dose: Infused Rocuronium [place] (Rocuronium Inj 10 Mg/Ml Vial 10 Ml) 50 mg IVP X1 ONE Stop: 05/06/24 08:14 Last Admin: 05/06/24 08:11 Dose: 50 mg Assessment & Plan Plan The patient is a 83-year-old male with previous medical history of pulmonary mass, COPD on 2 L home oxygen, NIDDM, anemia with previous recent admission at [facility] and [facility] was brought in to the ED due to respiratory distress. He arrived on CPAP. According to the niece at the bedside, during the night he was experience cold sweats, in the morning his saturation started decreased to the 60s and ambulance was called. NEURO Patient is sedated and intubated. CT head negative for acute stroke or trauma. #No active problems Plan: ? Sedation with propofol fentanyl RASS goal is -3 CARDIO #Septic shock #Afib with RVR PAtient was given diltiazem 50 mg once. Plan: - telemetry monitoring - amiodarone drip started -levophed drip to maintain MAP>65 PULM # Acute hypoxic respiratory failure #Pulmonary mass #Postobstructive pneumonia Patient has a history of long-term smoking. No pulmonary mass was discovered in 2022, he underwent workup was recommended to perform biopsy of lung. During this admission, [facility] was contacted for possible transfer for bronchial stent placement, patient was not accepted for transfer due to absent interventional pulmonology service at [facility]. 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 compressing the left pulmonary artery segment and compressing the left bronchial tree Plan: - continue mechanical ventilation - Zosyn 05/06/24-present - Vancomycin 05/06/24-present - chest physiotherapy -sputum cultures sent 05/06 -monitor ABG GI #No active problems Pantoprazole for GI prophylaxis NEPHRO #No active problems URO #No active problems HEME #No active problems ENDO #No active problems ID #No active problems MSK #No active problems SKIN #No active problems DVT prophylaxis:lovenox GI prophylaxis: pantoprazole Diet: NPO Cruz: Present Lines: peripheral lines Antibiotics: vancomycin+zosyn CODE STATUS: DNR Reason for ICU care: acute hypoxic respiratory failure in the setting of pulmonary mass and postobstructive pneumonia Plan of care discussed with attending Dr. Munoz . Talisha Dave MD, PGY 1. Attending Provider Attestation/Addendum Patient seen and examined with the above resident, Talisha Dave MD. I agree with the findings, assessment, and plan of care as documented except for any differences below. Patient with recurrent admissions in lieu of his advanced lung CA, on chronic home O2 at 2L/min. Recently confirmed by biopsy at [facility]. Large tumor encasing DEIRDRE airway and pulmonary arterial branch. Suspect superimposed obstructive pneumonia now as well. With pericardial and pleural effusions. Significant weight loss as well in previous months/ fatigue. We did request assessment by IP at [facility], but no longer available and declined transfer at this time. Patient with admission to ICU for septic shock. Add on Vancomycin to Zosyn. Control HR with amiodarone. Patient off pressor sat time of assessment initially but subsequently with evolving shock. Lactic acid to be trended as well, rising in reflection of evolving shock. Patient with grim prognosis, I did explain to the daughter at bedside that inability to adequately clear postobstructive process will lead to worsening and overwhelming infection and unfortunately he is limited in options for treatment of his malignancy now especially with vascular involvement. Will need to have ongoing goals of care discussion with family daily with progress during ICU stay. Total critical care time: I personally spent 45 minutes for review of physiologic parameters, directing plan of care throughout the day, coordination of care and counseling patient's family at bedside. This is exclusive of time spent teaching housestaff or performing any separate billable procedures. Patient continues to require critical care services for acute on chronic hypoxic respiratory failure and severe sepsis/ septic shock with risk for further decline/ morbidity and mortality.
--- NOTE | 2024-05-06 18:16 | PC.NURSE ---
Per ICU, pt's BP must be stabilized prior to going to ICU room; Scarlet Lewis RN made aware.
--- NOTE | 2024-05-06 18:22 | PC.NURSE ---
Spoke to Dr. Carbajal and made aware that pt's BP is 79/45 with a MAP 49. Verbal order received for emergency titration protocol for levophed to 0.2mcg/kg/min.
--- NOTE | 2024-05-06 18:32 | PC.NURSE ---
time of titration of levophed at 1826 not 1825
--- NOTE | 2024-05-06 18:41 | PC.NURSE ---
RN spoke to Dr. Carbajal at this time with updates regarding pt's current BP of 89/50 with a MAP of 70 and pt's current levophed titration of 0.18mcg/kg/min. Dr. Carbajal also made aware that pt's current temp is 100.6F; per Dr. Carbajal, If pt's temp is greater that 101F for next temp check, give another 1,000mg of acetaminophen IVPB.
--- NOTE | 2024-05-06 18:41 | PC.NURSE ---
levophed titration at 1839 was done at 1840 will not allow editing
--- NOTE | 2024-05-06 19:24 | PC.NURSE ---
This caption writer increased Fentanyl gtt by 25mcg/hr due to the protocol increase of 50mcg/hr. Pt was started at 25mcg/hr and increased only by 25mcg/hr when protocol increased order was 50mcg/hr. Adjustment made and increased to 75mcg/hr to follow protocol orders and titration to be at protocol.
--- NOTE | 2024-05-06 19:41 | ECHO_ITS ---
Transthoracic Echo Report Ht (in): 62 Wt (lb): 100 Exam Location: Portable Status: Inpatient Label Coder: Dayaan Sotelo Indications: Procedure Performed: BP: 112 / 56 HR: 70 Rhythm: Sinus Technical Quality: Fair MEASUREMENTS (Male / Female) Normal Values 2D ECHO LV Diastolic Diameter PLAX 3.8 cm 4.2 - 5.9 / 3.9 - 5.3 cm LV Systolic Diameter PLAX 2.5 cm IVS Diastolic Thickness 0.6 cm 0.6 - 1.0 / 0.6 - 0.9 cm LVPW Diastolic Thickness 0.8 cm 0.6 - 1.0 / 0.6 - 0.9 cm LV Relative Wall Thickness 0.4 LVOT Diameter 1.8 cm LA Volume Index 23.8 cm?/m? 16 - 28 cm?/m? Ascending Aorta Diameter 3.0 cm M-MODE Aortic Root Diameter MM 3.1 cm LA Systolic Diameter MM 3.0 cm LA Ao Ratio MM 1.0 AV Cusp Separation MM 1.7 cm DOPPLER AV Peak Velocity 134.0 cm/s AV Peak Gradient 7.2 mmHg AV Mean Gradient 3.0 mmHg AV Velocity Time Integral 18.7 cm LVOT Peak Velocity 91.6 cm/s LVOT Peak Gradient 3.4 mmHg LVOT Velocity Time Integral 17.4 cm LVOT Cardiac Index 2209.9 cm?/min?m? AV Area Cont Eq vti 2.4 cm? AV Area Cont Eq pk 1.7 cm? MV Peak Velocity 91.8 cm/s MV Peak Gradient 3.4 mmHg MV Mean Velocity 44.3 cm/s MV Mean Gradient 1.0 mmHg MV Area PHT 3.5 cm? MR Peak Velocity 467.5 cm/s MR Peak Gradient 87.4 mmHg Mitral E Point Velocity 71.8 cm/s Mitral A Point Velocity 42.2 cm/s Mitral E to A Ratio 1.7 LV E' Lateral Velocity 4.5 cm/s Mitral E to LV E' Lateral Ratio 16.1 LV E' Septal Velocity 6.7 cm/s Mitral E to LV E' Septal Ratio 10.7 TR Peak Velocity 273.3 cm/s TR Peak Gradient 29.9 mmHg FINDINGS Left Ventricle Normal left ventricular size, wall thickness, systolic function with no obvious regional wall motion abnormalities. The ejection fraction is visually estimated at 50-55%. Right Ventricle The right ventricle is normal in size and systolic function. The estimated right ventricular systoli c pressure, 39 mmHg. RAP 5. Left Atrium The left atrium is normal by two-dimensional, color flow and Doppler imaging with no structural abnormalities, no thrombus formation present. Right Atrium The right atrium is normal by two-dimensional imaging, color flow and Doppler imaging with no struct ural abnormalities, no thrombus formation present. Atrial Septum The interatrial septum appears normal with no evidence of a shunt. Aorta The aorta is normal by two-dimensional, color flow and Doppler interrogation. Mitral Valve The mitral valve is normal by two-dimensional, color flow and Doppler interrogation. There is modera te mitral valve regurgitation. Aortic Valve The aortic valve is trileaflet. Mild sclerosis without stenosis. There is trace aortic valve regurgi tation. Tricuspid Valve The tricuspid valve is normal by two-dimensional, color flow and Doppler interrogation. There is mil d tricuspid valve regurgitation. Pulmonic Valve There is moderate pulmonic valve regurgitation. Vessels The pulmonary artery appears normal. The inferior vena cava pulmonary and hepatic veins appear rajiv l. Pericardium The pericardium is normal by two-dimensional imaging. There is no significant pericardial effusion. Other Findings pleural effusion present. CONCLUSIONS Normal LV size and function. Estimated EF 50-55% Normal RV sizea function. Estimated RVSP 39mmHg Eccentric moderate MR. Moderate PI.Mild TR. Trace AI. Mild AV sclerosis without stenosis. Pleural effusion present. Priyanka Jackman (Electronically Signed) Final Date: 08 May 2024 12:03
--- NOTE | 2024-05-06 21:22 | PC.RT ---
Transfered pt on transport vent from ed to icu rm 250 w/o complication.
[2024-05-06] MEDS: AMIODARONE 150 MG IVPB 150 MG/100 ML BAG 600 MG IV (22:17)
[2024-05-06] MEDS: AMIODARONE 360 MG IVPB 360 MG/200 ML BAG 33.333 MG IV (22:36)
[2024-05-07] VITALS (111 sets, daily range): BP systolic 74–145; BP diastolic 45–93; PULSE 78–985; RESP 18–19; TEMP 36.7–37; O2SAT 93–100; BMI 16.4
[2024-05-07] MEDS: PIPER/TAZO INJ 3.375 GM in SODIUM CHLORIDE 0.9% (P) 50 ML IV ×5 (00:35→23:17)
[2024-05-07] MEDS: PROPOFOL 1,000 MG IVPB 1,000 MG/100 ML VIAL 6.532 MG IV (02:32)
[2024-05-07 04:36] LABS: Base Excess 6 (-3-3); HCO3 32 mEq/L (20-26); Inspired Oxygen, FIO2 35 %; O2 Saturation 94 % (91-98); PCO2 51 mmHg (32.0-48.0); PO2 70 mmHg (83-108)
[2024-05-07 04:51] LABS: Allen Test Performed/OK; Puncture Site Right Radial
[2024-05-07] MEDS: AMIODARONE 360 MG IVPB 360 MG/200 ML BAG 16.667 MG IV ×2 (04:59→16:35)
--- NOTE | 2024-05-07 05:36 | PC.NURSE ---
Notified Dr Anderson of this morning xray that Roman (fire alarm technician) wanted brought to her attention that et tube may need to be adjusted. Dr Anderson states she will look at image. No new orders received.
--- NOTE | 2024-05-07 06:00 | XR_ITS ---
Examination: AP chest single view Technique: AP portable supine chest single view Exam date and time: May 07, 2024 0532 hrs. Comparison May 06, 2024 Indications: Hypoxic respiratory failure, large tumor mass in the left upper lobe compressing the left main pulmonary artery and the left bronchial tree on CT chest study May 06, 2024 Findings: Large pulmonary mass left upper lobe again noted Bilateral perihilar basilar lung opacity edema and/or pneumonia with mildly prominent cardiac contour Moderate layering left pleural fluid Tracheal tube tip 17 mm above keyla Impression: Large pulmonary mass left upper lobe again noted Bilateral perihilar bibasilar edema and/or pneumonia Tracheal tube tip 17 mm above keyla
[2024-05-07 07:29] LABS: Alanine Aminotransferase 7 U/L (10-49); Albumin, Serum 2.9 gm/dL (3.4-4.8); Albumin/Globulin Ratio 1.5 (1.2-2.2); Alkaline Phosphatase 64 U/L (46-116); Anion Gap 13 (7-16); Aspartate Amino Transferase 25 U/L (0-34); BUN/Creatinine Ratio 19 Ratio (12-20); Bilirubin,Total 0.5 mg/dL (0.3-1.2); Blood Urea Nitrogen 13 mg/dL (9-23); Calcium 8.4 mg/dL (8.3-10.6); Calcium (Corrected) 9.3 mg/dL (8.5-10.1); Carbon Dioxide 21.6 mMol/L (20.0-31.0); Chloride 108 mMol/L (98-107); Creatinine (Component) 0.7 mg/dL (0.6-1.3); Estimated Creatinine Clearance 47.6 mL/min (>60); Glucose 76 mg/dL (74-106); Magnesium 1.4 mg/dL (1.6-2.6); Osmolality,Calculated 284 (275-295); Phosphorous 2.7 mg/dL (2.4-5.1); Potassium 4.2 mMol/L (3.4-5.1); Sodium 143 mMol/L (136-145); Total Protein 4.9 gm/dL (5.7-8.2); Troponin I < 0.020 ng/mL (0.0-0.045); eGFR > 60 See Note
[2024-05-07 08:45] LABS: Basophils # (Auto) 0.2 Thou/mm3 (0.0-0.2); Basophils % (Auto) 1 % (0-2.5); Eosinophils # (Auto) 0.1 Thou/mm3 (0.0-0.5); Eosinophils % (Auto) 1 % (0-10); Hematocrit 36.8 % (41.0-53.0); Hemoglobin 11.2 g/dL (13.5-16.0); Immature Granulocytes % (Auto) 1 % (0-0); Immature Granulocytes Auto 0.31 Thou/mm3 (0.00-0.00); Lymphocytes # (Auto) 1.1 Thou/mm3 (1.0-4.8); Lymphocytes % (Auto) 4 % (10-50); Mean Corpuscular HGB Conc 30.4 g/dl (31.0-37.0); Mean Corpuscular Hemoglobin 23.1 pg (25.0-35.0); Mean Corpuscular Volume 76 fL (80-100); Monocytes # (Auto) 2.1 Thou/mm3 (0.0-0.8); Monocytes % (Auto) 9 % (0-12); Neutrophils # (Auto) 20.4 Thou/mm3 (1.8-7.7); Neutrophils % (Auto) 84 % (37-80); Nucleated Red Blood Cell # 0.03 Thou/mm3 (0.00-0.00); Nucleated Red Blood Cell % 0 /100 WBC (0); Platelet Count 347 Thou/mm3 (140-440); RDW Standard Deviation 55.7 fL (35.1-43.9); Red Blood Count 4.85 Miln/mm3 (4.50-5.90); White Blood Count 24.2 Thou/mm3 (3.8-10.6)
[2024-05-07] MEDS: PANTOPRAZOLE INJ 40 MG VIAL IV (08:58)
[2024-05-07] MEDS: ENOXAPARIN SOD INJ 40 MG/0.4 ML SYRINGE SC (08:58)
[2024-05-07] MEDS: Magnesium Sulfate 4 GM Ivpb 4 GM/50 ML BAG IV ×2 (08:59→17:53)
[2024-05-07 09:38] LABS: Reflex Lactate? Y
--- NOTE | 2024-05-07 10:07 | PC.SS ---
Patient Wilmer Ma is a 83 Year old male admitted for Pulmonary Mass. Patient is currently intubated. SS contacted patient's daughter, Bessy Ma to in order to complete initial assessment. She reports patient lives at home with her, and prior to admission patient was alert and oriented and able to ambulate with a Rollator walker. Patient does need assistance completing his ADL's. Patient's PCP is Zion Pérez. Choice of pharmacy is [facility]. Discharge plan still pending at the time. Patient's daughter requested for SS to follow up with her once patient is stable to determine discharge plan. Next of Kin, Daughter: Bsesy Ma [phone] Discharge Plan: Discharge Plan Pending PCP: Zion Pérez
--- NOTE | 2024-05-07 11:06 | XR_ITS ---
Examination: AP chest single view Technique: AP portable semiupright chest single view Exam date and time: May 07, 2024 1119 hrs. Comparison May 07, 2024 0536 hrs. Indications: Post orogastric tube placement Findings: Orogastric tube sidehole at the GE junction Enlarged cardiac contour Large pulmonary mass left upper lobe Tracheal tube tip now projects 4.3 cm above keyla Significant left pleural fluid Impression: Advance the orogastric tube 5 cm
[2024-05-07 11:13] LABS: Lactic Acid, 3 HR 4.4 mMol/L (0.4-2.0)
[2024-05-07] MEDS: VANCOMYCIN/NS 750 MG IVPB 750 MG/150 ML BAG 120 MG IV ×2 (11:48→21:26)
--- NOTE | 2024-05-07 11:59 | ESPR_ITS ---
<Statement entered by David Koch MD - 05/08/24 08:05> TOTAL CC TIME: 45 MIN I saw and evaluated the patient. I reviewed the resident?s note and agree with findings and plan as documented in the resident?s note. Upon my evaluation, this patient had a high probability of imminent or life- threatening deterioration due to acute hypoxic resp failure which required my direct attention, intervention, and personal management. This time is exclusive of time spent on procedures, which are documented separately if performed. imaging reviewed - pt has very severe aggressive and widely disseminated lung cancer although fio2 now weaned to 35% - pt has high risk of extubation failure he is a DNR and will review GOC w/ family prior to considering extubation will transition to PSV when able otherwise cont full care / abx f/u clx resutls Documentation for date of: 05/07/24 Subjective Subjective Interval history: 05/07/2024; Patient was seen and examined by bedside, remains sedated and intubated, patient requires increase of Levophed rate to maintain MAP> 65, will start patient on midodrine 3 times daily, heart rate noted to be in 140s, with BP 78/51 patient was given digoxin 250 mcg IV x 1, amiodarone rate was increased to 1 mg/minute and magnesium repleted again with 4g per cardiology recommendations. Continue patient on current antibiotics with vancomycin and Zosyn for postobstructive pneumonia pending sputum culture and sensitivity for de-escalation. Goals of care discussion held with family regarding expectations for patient in light of patient's advanced lung cancer and poor prognosis, and 2 daughters were present and emphasized patient's comfort as priority, but would like more time to include other family members in their decision making. Exam Vital Signs Temp Pulse Resp BP Pulse Ox O2 Del Method FiO2 98.1 F 84 18 112/59 L 99 Mechanical Ventilation 35 05/07/24 08:00 05/07/24 11:45 05/07/24 07:45 05/07/24 11:45 05/07/24 11:45 05/06/24 20:50 05/07/24 10:17 Narrative Exam GEN: Critically ill, not acutely distressed, sedated and intubated. Neuro: Deferred due to sedation. HEENT: NCAT, trachea midline, moist mucous membranes, ET tube in place, NG tube noted. CVS: RRR, S1/S2 present, no M/R/G. No JVD Respi: Mechanically ventilated, Dimineshed breath sounds on left upper lobe, coarse on right and LLL. ABD: Soft, no grimace to palpation, bowel sounds present in all 4 quadrants. Skin: warm, dry and intact. Extremities: Pulses 3+, no edema/cyanosis. Objective Labs 05/07/24 08:30 05/07/24 06:26 Labs: Laboratory Results - last 24 hr 05/06/24 05/06/24 05/07/24 12:10 17:42 04:15 WBC RBC Hgb Hct MCV MCH MCHC RDW Std Deviation Plt Count Neut % (Auto) Lymph % (Auto) [place] % (Auto) Eos % (Auto) Baso % (Auto) Neut # (Auto) Lymph # (Auto) [place] # (Auto) Eos # (Auto) Baso # (Auto) Immature Gran # (Auto) Absolute Nucleated RBC Immature Gran % Nucleated RBC % Puncture Site Right Radial ABG pH 7.40 ABG pCO2 51 H ABG pO2 70 L D ABG HCO3 32 H ABG O2 Saturation 94 ABG Base Excess 6 H FiO2 35 Sodium Potassium Chloride Carbon Dioxide Anion Gap BUN Creatinine Estim Creat Clear Calc eGFR BUN/Creatinine Ratio Glucose Calculated Osmolality Lactic Acid 5.6 H* Calcium Corrected Calcium Phosphorus Magnesium Total Bilirubin AST ALT Alkaline Phosphatase Troponin I Total Protein Albumin Globulin Albumin/Globulin Ratio Acetaminophen 6.0 L 05/07/24 05/07/24 05/07/24 06:26 08:30 10:59 WBC 24.2 H D RBC 4.85 Hgb 11.2 L Hct 36.8 L MCV 76 L MCH 23.1 L MCHC 30.4 L RDW Std Deviation 55.7 H Plt Count 347 Neut % (Auto) 84 H Lymph % (Auto) 4 L [place] % (Auto) 9 Eos % (Auto) 1 Baso % (Auto) 1 Neut # (Auto) 20.4 H Lymph # (Auto) 1.1 [place] # (Auto) 2.1 H Eos # (Auto) 0.1 Baso # (Auto) 0.2 Immature Gran # (Auto) 0.31 H Absolute Nucleated RBC 0.03 H Immature Gran % 1 H Nucleated RBC % 0 Puncture Site ABG pH ABG pCO2 ABG pO2 ABG HCO3 ABG O2 Saturation ABG Base Excess FiO2 Sodium 143 Potassium 4.2 Chloride 108 H Carbon Dioxide 21.6 Anion Gap 13 BUN 13 Creatinine 0.7 Estim Creat Clear Calc 47.6 L eGFR > 60 BUN/Creatinine Ratio 19 Glucose 76 D Calculated Osmolality 284 Lactic Acid 3.0 H 4.4 H* Calcium 8.4 D Corrected Calcium 9.3 Phosphorus 2.7 Magnesium 1.4 L Total Bilirubin 0.5 D AST 25 ALT 7 L Alkaline Phosphatase 64 Troponin I < 0.020 Total Protein 4.9 L Albumin 2.9 L D Globulin 2.0 L Albumin/Globulin Ratio 1.5 Acetaminophen ABG Interpretation ABG results: 05/06/24 05/06/24 05/07/24 06:25 09:15 04:15 ABG pH 7.45 7.40 7.40 ABG pCO2 49 H 54 H 51 H ABG pO2 85 406 H D 70 L D ABG HCO3 34 H 34 H 32 H ABG O2 Saturation 97 101 H 94 ABG Base Excess 9 H 8 H 6 H Quality Measures Quality Measures sepsis Current suspected stage: septic shock (LA >4 and/or hypotension) Sepsis reassessment completed at (date): 05/07/24 Sepsis reassessment completed at (time): 16:00 Possible source: pulmonary Blood cultures ordered: yes Antibiotic ordered: Yes Advance care planning discussed with:: spouse and child Assessment & Plan Assessment Current Active Medications: Generic Name Dose Route Start Last Admin Trade Name Freq PRN Reason Stop Dose Admin Acetaminophen 650 mg 05/06/24 17:37 Acetaminophen 325 Mg Tablet PO 06/05/24 17:36 Q4HR PRN PAIN SCALE 1-3 (mild Acetaminophen 650 mg 05/06/24 17:37 Acetaminophen Supp 650 Mg Supp OH 06/05/24 17:36 Q4HR PRN PAIN SCALE 1-3 (mild Dextrose 25 ml 05/07/24 02:18 Dextrose 50%-Water Inj 50 Ml Syringe IV 06/06/24 02:17 Q15MIN PRN BG 50-70 responsive npo pt Dextrose 50 ml 05/07/24 02:18 Dextrose 50%-Water Inj 50 Ml Syringe IV 06/06/24 02:17 Q15MIN PRN BG <50 OR BG <70 & pt unresponsive Enoxaparin Sodium 40 mg 05/07/24 09:00 05/07/24 08:58 Enoxaparin Sod Inj 40 Mg/0.4 Ml Syringe SC 05/21/24 08:59 40 mg QDAY KEM Administration Glucagon 1 mg 05/07/24 02:18 Glucagon Inj 1 Mg Vial IM Q15MIN PRN BG <70, and no IV access Propofol 1,000 mg in 100 mls @ 1.633 mls/hr 05/06/24 09:20 05/07/24 11:34 Diprivan Ivpb IV 06/05/24 09:19 15 mcg/kg/min .Q24H PRN 4.899 mls/hr PER PROTOCOL Titration Protocol 5 MCG/KG/MIN Fentanyl Citrate 2,500 mcg in 250 mls @ 2.5 mls/hr 05/06/24 09:22 05/07/24 11:00 Sublimaze Inj 2,500 Mcg/250 Ml Bag IV 05/11/24 09:21 75 mcg/hr .Q24H PRN 7.5 mls/hr PER PROTOCOL Titration Protocol 25 MCG/HR Piperacillin Sod/Tazobactam 50 mls @ 100 mls/hr 05/06/24 17:11 05/07/24 05:21 Sod 3.375 gm/ Sodium Chloride IV 05/13/24 17:10 100 mls/hr Q6HR KEM Administration Norepinephrine Bitartrate 16 mg in 250 mls @ 2.126 mls/hr 05/06/24 18:00 05/07/24 11:00 Levophed In Ns 16mg/250ml IV 06/05/24 17:59 0.08 mcg/kg/min .Q24H PRN 3.402 mls/hr PER PROTOCOL Titration Protocol 0.05 MCG/KG/MIN Amiodarone HCl/Dextrose 360 mg in 200 mls @ 16.667 mls/hr 05/06/24 19:40 05/07/24 04:59 Nexterone Ivpb IV 05/07/24 19:39 16.667 mls/hr .Q12H KEM Administration Vancomycin/Sodium Chloride 750 mg in 150 mls @ 120 mls/hr 05/07/24 10:00 05/07/24 11:48 Vancomycin/Ns 750 Mg Ivpb IV 05/14/24 09:59 120 mls/hr BID@1000,2200 KEM Administration Insulin Human Lispro 0 unit 05/07/24 06:00 05/07/24 11:59 Insulin Lispro (Admelog) 1 Unit/0.01 Ml Unit SC 06/06/24 05:59 Not Given Q6HR [facility] Protocol Midodrine 10 mg 05/07/24 14:00 Midodrine 5 Mg Tablet PO 06/06/24 13:59 TID [facility] Pantoprazole Sodium 40 mg 05/07/24 09:00 05/07/24 08:58 Pantoprazole Inj 40 Mg Vial IV 06/06/24 08:59 40 mg QDAY [facility] Administration Pharmacy Consult 1 each 05/06/24 17:15 05/07/24 09:09 Vancomycin Pharmacy To Dose 1 Each Each IV 06/05/24 17:14 Not Given QDAY [facility] Plan 83-year-old male with previous medical history of pulmonary mass, COPD on 2 L home oxygen, NIDDM, anemia with previous recent admission at [facility] and [facility] was brought in to the ED due to respiratory distress. He arrived on CPAP. According to the niece at the bedside, during the night he was experience cold sweats, in the morning his saturation started decreased to the 60s and ambulance was called. 05/07/2024; Patient was seen and examined by bedside, remains sedated and intubated, patient requires increase of Levophed rate to maintain MAP> 65, patient not fluid responsive as seen on bedside echo and cheetah, will start patient on midodrine 3 times daily, heart rate noted to be in 140s, with BP 78/51 patient was given digoxin 250 mcg IV x 1, amiodarone rate was increased to 1 mg/minute and magnesium repleted again with 4g per cardiology recommendations. Continue patient on current antibiotics with vancomycin and Zosyn for postobstructive pneumonia pending sputum culture and sensitivity for de- escalation. Goals of care discussion held with family regarding expectations for patient in light of patient's advanced lung cancer and poor prognosis, and 2 daughters were present and emphasized patient's comfort as priority, but would like more time to include other family members in their decision making. NEURO Patient is sedated and intubated. CT head negative for acute stroke or trauma. #No active problems Plan: ? Sedation with propofol fentanyl RASS goal is -3 CARDIO #Septic shock 2/2 Post obstructive PNA #Afib with RVR #Lactic acidosis Patient was given diltiazem 50 mg once. Plan: - telemetry monitoring - Fluid resuscitated with 30cc/KG per sepsis protocol. - Amiodarone drip started, increase amiodarone rate to 1 mg/minute. - Patient given IV digoxin 250 mcg x 1 - Levophed drip increased to maintain MAP>65. - F/U repeat Lactate level and maintain MAP goal. PULM #Acute hypoxic respiratory failure #Lung carcinoma #Postobstructive pneumonia Patient has a history of long-term smoking. Pulmonary mass was discovered in 2022, recent biopsy revealed Lung Ca. During this admission, [facility] was contacted for possible transfer for bronchial stent placement, patient was not accepted for transfer due to absent interventional pulmonology service at [facility]. 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 compressing the left pulmonary artery segment and compressing the left bronchial tree Plan: - continue mechanical ventilation - Zosyn 05/06/24-present - Vancomycin 05/06/24-present - chest physiotherapy - Sputum cultures sent 05/06 - De-escalate Abx as warranted. - Monitor ABG GI #No active problems Pantoprazole for GI prophylaxis NEPHRO #No active problems URO #No active problems HEME #Microcytic Anemia In setting of Iron deficiency anemia. F/U Iron panel Hold iron repletion in setting of acute infection. Continue to monitor CBC ENDO #No active problems ID #Post obstructive PNA In setting of compressing lung ca. Patient started on Vanc and Zosyn in light of recent hospitalization. F/U Cultures. F/U daily CBC. MSK #No active problems SKIN #Left upper back skin abrasion at site of defibrillator pad. Apply wound dressing and continue daily care. DVT prophylaxis:lovenox GI prophylaxis: pantoprazole Diet: NPO. Cruz: Present Lines: peripheral lines Antibiotics: vancomycin+zosyn CODE STATUS: DNR Reason for ICU care: acute hypoxic respiratory failure in the setting of pulmonary mass and postobstructive pneumonia Patient's plan of care discussed with attending Dr. Zee Zelaya, PGY-3
[2024-05-07] MEDS: fentaNYL 2,500 MCG/250 ML BAG 2,500 MCG/250 ML BAG 12.5 MCG IV (12:44)
[2024-05-07] MEDS: MIDODRINE 5 MG TABLET 10 MG PO ×2 (14:07→21:25)
[2024-05-07] MEDS: AMIODARONE 360 MG IVPB 360 MG/200 ML BAG 33.333 MG IV ×2 (17:53→23:30)
[2024-05-07] MEDS: DIGOXIN INJ 0.25 MG/ML AMP 2 ML IVP (18:20)
[2024-05-07 18:22] LABS: Lactate (Lactic Acid) 3.9 mMol/L (0.4-2.0)
[2024-05-07 21:22] LABS: Reflex Lactate? Y
[2024-05-07 21:49] LABS: Lactic Acid, 3 HR 3.1 mMol/L (0.4-2.0)
[2024-05-07] MEDS: PROPOFOL 1,000 MG IVPB 1,000 MG/100 ML VIAL 4.899 MG IV (22:33)
[2024-05-08] VITALS (122 sets, daily range): BP systolic 72–151; BP diastolic 49–82; PULSE 66–151; RESP 5–22; TEMP 36.2–36.9; O2SAT 92–100; BMI 17.9; BMI 18.0
[2024-05-08 04:55] LABS: Base Excess 3 (-3-3); HCO3 28 mEq/L (20-26); Inspired Oxygen, FIO2 30 %; O2 Saturation 95 % (91-98); PCO2 44 mmHg (32.0-48.0); PO2 74 mmHg (83-108); pH, Arterial 7.41 (7.35-7.45)
[2024-05-08 05:05] LABS: Allen Test Performed/OK; Puncture Site Right Radial
[2024-05-08] MEDS: PIPER/TAZO INJ 3.375 GM in SODIUM CHLORIDE 0.9% (P) 50 ML IV ×3 (05:32→19:14)
[2024-05-08] MEDS: MIDODRINE 5 MG TABLET 10 MG PO ×3 (05:42→21:24)
[2024-05-08 05:48] LABS: Basophils # (Auto) 0.1 Thou/mm3 (0.0-0.2); Basophils % (Auto) 1 % (0-2.5); Eosinophils # (Auto) 0.1 Thou/mm3 (0.0-0.5); Eosinophils % (Auto) 1 % (0-10); Hematocrit 31.3 % (41.0-53.0); Hemoglobin 9.6 g/dL (13.5-16.0); Immature Granulocytes % (Auto) 2 % (0-0); Immature Granulocytes Auto 0.31 Thou/mm3 (0.00-0.00); Lymphocytes # (Auto) 1.2 Thou/mm3 (1.0-4.8); Lymphocytes % (Auto) 6 % (10-50); Mean Corpuscular HGB Conc 30.7 g/dl (31.0-37.0); Mean Corpuscular Hemoglobin 22.7 pg (25.0-35.0); Mean Corpuscular Volume 74 fL (80-100); Monocytes # (Auto) 1.6 Thou/mm3 (0.0-0.8); Monocytes % (Auto) 8 % (0-12); Neutrophils # (Auto) 16.9 Thou/mm3 (1.8-7.7); Neutrophils % (Auto) 84 % (37-80); Nucleated Red Blood Cell # 0.02 Thou/mm3 (0.00-0.00); Nucleated Red Blood Cell % 0 /100 WBC (0); Platelet Count 340 Thou/mm3 (140-440); RDW Standard Deviation 52.6 fL (35.1-43.9); Red Blood Count 4.22 Miln/mm3 (4.50-5.90); White Blood Count 20.3 Thou/mm3 (3.8-10.6)
[2024-05-08 06:30] LABS: Alanine Aminotransferase 17 U/L (10-49); Albumin, Serum 3.2 gm/dL (3.4-4.8); Albumin/Globulin Ratio 1.5 (1.2-2.2); Alkaline Phosphatase 85 U/L (46-116); Anion Gap 12 (7-16); Aspartate Amino Transferase 34 U/L (0-34); BUN/Creatinine Ratio 17 Ratio (12-20); Bilirubin,Total 0.6 mg/dL (0.3-1.2); Blood Urea Nitrogen 15 mg/dL (9-23); Calcium 10.3 mg/dL (8.3-10.6); Calcium (Corrected) 10.9 mg/dL (8.5-10.1); Chloride 99 mMol/L (98-107); Creatinine (Component) 0.9 mg/dL (0.6-1.3); Estimated Creatinine Clearance 37.1 mL/min (>60); Globulin 2.1 gm/dL (2.3-3.5); Glucose 119 mg/dL (74-106); Magnesium 2.7 mg/dL (1.6-2.6); Osmolality,Calculated 275 (275-295); Phosphorous 3.4 mg/dL (2.4-5.1); Potassium 3.9 mMol/L (3.4-5.1); Sodium 137 mMol/L (136-145); Total Protein 5.3 gm/dL (5.7-8.2); eGFR > 60 See Note
[2024-05-08] MEDS: AMIODARONE 360 MG IVPB 360 MG/200 ML BAG 33.333 MG IV (07:21)
[2024-05-08] MEDS: Norepinephrine/NS 16mg/250ml 16 MG/250 ML BAG 9.355 MG IV (07:24)
[2024-05-08 08:13] LABS: Total Iron Binding Capacity 201 mcg/dL (250-425)
[2024-05-08] MEDS: ENOXAPARIN SOD INJ 40 MG/0.4 ML SYRINGE SC (08:19)
[2024-05-08] MEDS: PANTOPRAZOLE INJ 40 MG VIAL IV (08:20)
[2024-05-08] MEDS: POTASSIUM CHLORIDE 10% 20 MEQ/15 ML UDC GT (08:20)
[2024-05-08 08:23] LABS: Iron 12 mcg/dL (65-175); Percent Iron Saturation 5 % (20-55); Unsaturated Iron Binding 189 (225-295)
[2024-05-08 08:35] LABS: Reflex Lactate? Y
[2024-05-08] MEDS: fentaNYL 2,500 MCG/250 ML BAG 2,500 MCG/250 ML BAG 12.5 MCG IV (09:05)
--- NOTE | 2024-05-08 09:05 | PD.RESCONSUL ---
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 In ED patient was nonverbal and was on CPAP upon arrival before eventually being intubated. Patient's MAP dropped below 65 therefore pressors were started in the ER as well. Initially a transfer time was made to [facility], but transfer did not proceed as they did not have interventional pulmonology services. Of note, patient was recently seen in the [facility] ER on 04/12/2024 where patient was found to have thick walled pulmonary mass of left upper lobe and was transferred to [facility]. Initially was hypoxic, tachypneic, tachycardic, normotensive, and hypothermic. Initial labs were relevant for leukocytosis (WBC 19.2), Hgb 12.4, ABG (pH 7.4, pCO2 54, pO2 406), sodium 134, bicarb 31.4, BUN 15, creatinine 0.7, lactic acid 5.6, potassium 4.2, magnesium 1.8, T bilirubin 1.3, lactate dehydrogenase 333, and FOBT positive. Initial imaging included CT chest/abdomen/pelvis which showed a large tumor mass in the left upper lobe surrounding the left pulmonary artery and compressing the left pulmonary artery segment and compressing the left bronchial tree. Additional imaging included head CT which did not show any hemorrhage, mass effect, or midline shift, and chest x-ray which showed left base pneumonia with left pleural fluid. Echo done by education trainer on-call on day of admission showed the following: Normal LV size and function. Estimated EF 50-55% Normal RV sizea function. Estimated RVSP 39mmHg Eccentric moderate MR. Moderate PI.Mild TR. Trace AI. Mild AV sclerosis without stenosis. Pleural effusion present. During my assessment patient was sedated and mechanically ventilated therefore much of the history was taken from chart review. On second day of admission patient was noticed to have A-fib with RVR therefore amio drip was started at 1 mg/min and IV digoxin 250 mg was given x 1. Today patient received 0.25 mg of digoxin x 1 and was switched to p.o. amiodarone 200 twice daily and he is currently on midodrine 10 mg 3 times daily as well as norepinephrine infusion at 9 mL/h. Patient is also on IV vancomycin and Zosyn. There is no recent EKG on file. As patient developed A-fib with RVR cardiology was consulted. 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, and anemia Surgical Hx: None Occupation: Retired field artillery crewmember Social Hx: 71 packs/year smoking, previously drank 1-2 beers a day, denied any illicit drugs in the past Medications: Simvastatin 20 mg at bedtime, metformin 500 mg twice daily, Trelegy, diltiazem 300 mg daily, Eliquis 2.5 mg twice daily, albuterol, and ferrous sulfate 325 daily cc:: cc: David Koch MD Review of Systems Review of Systems ROS Unobtainable: unobtainable due to medical condition and due to endotracheal tube Past Medical History Past Medical History Comments PMH COMMENT: PMH: NIDDM, COPD (on home oxygen), hyperlipidemia, A-fib with RVR, tobacco use disorder, 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, and anemia Surgical Hx: None Occupation: Retired field artillery crewmember Social Hx: 71 packs/year smoking, previously drank 1-2 beers a day, denied any illicit drugs in the past Medications: Simvastatin 20 mg at bedtime, metformin 500 mg twice daily, Trelegy, diltiazem 300 mg daily, Eliquis 2.5 mg twice daily, albuterol, and ferrous sulfate 325 daily Exam Vital Signs Temp Pulse Resp BP Pulse Ox O2 Del Method FiO2 97.2 F 80 18 131/66 H 97 Mechanical Ventilation 30 05/08/24 08:00 05/08/24 08:00 05/07/24 07:45 05/08/24 08:00 05/08/24 08:00 05/06/24 20:50 05/08/24 08:00 Narrative Exam Constitutional Sedated and mechanically ventilated, Cachectic, Temporal wasting, Elderly HEENT Eyes closed. Patent nares. Trachea midline Respiratory Bronchial breath sounds, intubated. Cardiovascular S1 and S2 audible, RRR. Abdominal Soft, BS + Musculoskeletal No cyanosis. No LE edema. Neurological Sedated. Skin Warm, dry and intact. No apparent lesions. Results Labs 05/09/24 04:44 05/09/24 04:44 Labs: Short CBC 05/08/24 Range/Units 05:18 WBC 20.3 H (3.8-10.6) Thou/mm3 Hgb 9.6 L (13.5-16.0) g/dL Hct 31.3 L (41.0-53.0) % Plt Count 340 (140-440) Thou/mm3 BMP 05/08/24 05:18 Sodium 137 Potassium 3.9 Chloride 99 Carbon Dioxide 26.0 BUN 15 Creatinine 0.9 Glucose 119 H D Calcium 10.3 D Liver Function 05/08/24 Range/Units 05:18 Total Bilirubin 0.6 (0.3-1.2) mg/dL AST 34 (0-34) U/L ALT 17 (10-49) U/L Alkaline Phosphatase 85 D (46-116) U/L Albumin 3.2 L (3.4-4.8) gm/dL ABG Interpretation ABG results: 05/06/24 05/06/24 05/07/24 06:25 09:15 04:15 ABG pH 7.45 7.40 7.40 ABG pCO2 49 H 54 H 51 H ABG pO2 85 406 H D 70 L D ABG HCO3 34 H 34 H 32 H ABG O2 Saturation 97 101 H 94 ABG Base Excess 9 H 8 H 6 H 05/08/24 04:47 ABG pH 7.41 ABG pCO2 44 ABG pO2 74 L ABG HCO3 28 H ABG O2 Saturation 95 ABG Base Excess 3 Quality Measures Quality Measures sepsis Current suspected stage: sepsis Possible source: pulmonary Blood cultures ordered: yes Antibiotic ordered: Yes Advance care planning discussed with:: patient Medications Home Medications and Allergies Home Medications ?Medication ?Instructions ?Recorded ?Confirmed ?Type albuterol sulfate 90 mcg/actuation 90 mcg inhalation TID PRN 09/08/22 05/08/24 History aerosol inhaler (Ventolin HFA) Shortness Of Breath Or Wheezing metformin 500 mg tablet 500 mg PO BID 09/08/22 05/08/24 History prednisone 10 mg tablet 10 mg PO QDAY 09/08/22 05/08/24 History simvastatin 20 mg tablet 20 mg PO HS 09/08/22 05/08/24 History apixaban 2.5 mg tablet (Eliquis) 2.5 mg PO BID 05/08/24 05/08/24 History diltiazem HCl 300 mg 300 mg PO QDAY 05/08/24 05/08/24 History capsule,extended release 24 hr ferrous sulfate 325 mg (65 mg 325 mg PO QDAY 05/08/24 05/08/24 History iron) tablet Allergies Allergy/AdvReac Type Severity Reaction Status Date / Time No Known Allergies Allergy Verified 04/12/24 04:22 Visit Medications Acetaminophen (Acetaminophen 325 Mg Tablet) 650 mg PO Q4HR PRN PRN Reason: PAIN SCALE 1-3 (mild Stop: 06/05/24 17:36 Acetaminophen (Acetaminophen Supp 650 Mg Supp) 650 mg NE Q4HR PRN PRN Reason: PAIN SCALE 1-3 (mild Stop: 06/05/24 17:36 Dextrose (Dextrose 50%-Water Inj 50 Ml Syringe) 25 ml IV Q15MIN PRN PRN Reason: BG 50-70 responsive npo pt Stop: 06/06/24 02:17 Dextrose (Dextrose 50%-Water Inj 50 Ml Syringe) 50 ml IV Q15MIN PRN PRN Reason: BG <50 OR BG <70 & pt unresponsive Stop: 06/06/24 02:17 Enoxaparin Sodium (Enoxaparin Sod Inj 40 Mg/0.4 Ml Syringe) 40 mg SC QDAY KEM Stop: 05/21/24 08:59 Last Admin: 05/08/24 08:19 Dose: 40 mg Glucagon (Glucagon Inj 1 Mg Vial) 1 mg IM Q15MIN PRN PRN Reason: BG <70, and no IV access Propofol (Diprivan Ivpb) 1,000 mg in 100 mls @ 1.633 mls/hr IV .Q24H PRN; Protocol PRN Reason: PER PROTOCOL Stop: 06/05/24 09:19 Last Titration: 05/08/24 08:00 Dose: 20 mcg/kg/min, 6.532 mls/hr Fentanyl Citrate (Sublimaze Inj 2,500 Mcg/250 Ml Bag) 2,500 mcg in 250 mls @ 2.5 mls/hr IV .Q24H PRN; Protocol PRN Reason: PER PROTOCOL Stop: 05/11/24 09:21 Last Titration: 05/08/24 08:00 Dose: 125 mcg/hr, 12.5 mls/hr Piperacillin Sod/Tazobactam (Sod 3.375 gm/ Sodium Chloride) 50 mls @ 100 mls/hr IV Q6HR KEM Stop: 05/13/24 17:10 Last Admin: 05/08/24 05:32 Dose: 100 mls/hr Norepinephrine Bitartrate (Levophed In Ns 16mg/250ml) 16 mg in 250 mls @ 2.126 mls/hr IV .Q24H PRN; Protocol PRN Reason: PER PROTOCOL Stop: 06/05/24 17:59 Last Titration: 05/08/24 08:08 Dose: 0.2 mcg/kg/min, 8.505 mls/hr Vancomycin/Sodium Chloride (Vancomycin/Ns 750 Mg Ivpb) 750 mg in 150 mls @ 120 mls/hr IV BID@1000,2200 COUNTS INCLUDE 234 BEDS AT THE [facility] Stop: 05/14/24 09:59 Last Admin: 05/07/24 21:26 Dose: 120 mls/hr Amiodarone HCl/Dextrose (Nexterone Ivpb) 360 mg in 200 mls @ 33.333 mls/hr IV .Q6H ONE Stop: 05/08/24 12:21 Last Admin: 05/08/24 07:21 Dose: 33.333 mls/hr Insulin Human Lispro (Insulin Lispro (Admelog) 1 Unit/0.01 Ml Unit) 0 unit SC Q6HR COUNTS INCLUDE 234 BEDS AT THE [facility]; Protocol Stop: 06/06/24 05:59 Last Admin: 05/08/24 05:42 Dose: Not Given Midodrine (Midodrine 5 Mg Tablet) 10 mg PO TID COUNTS INCLUDE 234 BEDS AT THE [facility] Stop: 06/06/24 13:59 Last Admin: 05/08/24 05:42 Dose: 10 mg Pantoprazole Sodium (Pantoprazole Inj 40 Mg Vial) 40 mg IV QDAY COUNTS INCLUDE 234 BEDS AT THE [facility] Stop: 06/06/24 08:59 Last Admin: 05/08/24 08:20 Dose: 40 mg Pharmacy Consult (Vancomycin Pharmacy To Dose 1 Each Each) 1 each IV QDAY COUNTS INCLUDE 234 BEDS AT THE [facility] Stop: 06/05/24 17:14 Last Admin: 05/07/24 09:09 Dose: Not Given Discontinued Medications Albuterol (Albuterol Rt 25 Mg/5 Ml Nebu) 5 mg INH Q6HRRT COUNTS INCLUDE 234 BEDS AT THE [facility] Stop: 06/06/24 00:59 Digoxin (Digoxin Inj 0.25 Mg/Ml Amp 2 Ml) 250 mg IVP X1 ONE Stop: 05/07/24 18:01 Last Admin: 05/07/24 19:09 Dose: Not Given Digoxin (Digoxin Inj 0.25 Mg/Ml Amp 2 Ml) 0.25 mg IVP X1 ONE Stop: 05/07/24 18:15 Last Admin: 05/07/24 18:20 Dose: 0.25 mg Diltiazem HCl (Diltiazem Inj 5 Mg/Ml Vial 5 Ml) 15 mg IV X1 ONE Stop: 05/06/24 08:20 Last Admin: 05/06/24 08:49 Dose: Not Given Diltiazem HCl (Diltiazem Inj 5 Mg/Ml Vial 5 Ml) 15 mg IV X1 ONE Stop: 05/06/24 17:09 Last Admin: 05/06/24 17:13 Dose: 15 mg Etomidate (Etomidate Inj 2 Mg/Ml Vial 10 Ml) 20 mg IVP X1 ONE Stop: 05/06/24 08:15 Last Admin: 05/06/24 08:11 Dose: 20 mg Etomidate (Etomidate Inj 2 Mg/Ml Vial 10 Ml) 20 mg IVP X1 ONE Stop: 05/06/24 10:14 Last Admin: 05/06/24 10:14 Dose: 20 mg Piperacillin/Tazobactam/Dextrose (Zosyn) 3.375 gm in 50 mls @ 100 mls/hr IV X1 ONE Stop: 05/06/24 09:05 Last Infusion: 05/06/24 09:39 Dose: Infused Sodium Chloride (Ns) 1,638 mls @ 1,638 mls/hr 30 ml/kg infuse over 60 min (1638 ml) IV .Q1H ONE Stop: 05/06/24 13:38 Last Infusion: 05/06/24 14:21 Dose: Infused Vancomycin HCl 1,000 mg/ (Sodium Chloride) 250 mls @ 150 mls/hr IV X1 ONE Stop: 05/06/24 14:20 Last Infusion: 05/06/24 14:39 Dose: Infused Acetaminophen (Ofirmev Inj) 1,000 mg in 100 mls @ 250 mls/hr IV X1 ONE Stop: 05/06/24 17:33 Last Infusion: 05/06/24 17:55 Dose: Infused Vasopressin/Sodium Chloride (Vasostrict/Ns Ivpb) 20 unit in 100 mls @ 9 mls/hr IV .Q11H7M PRN; Protocol PRN Reason: PER PROTOCOL Stop: 06/05/24 19:38 Amiodarone HCl/Dextrose (Nexterone Ivpb) 150 mg in 100 mls @ 600 mls/hr IV .Q10M ONE Stop: 05/06/24 19:49 Last Admin: 05/06/24 22:17 Dose: 600 mls/hr Amiodarone HCl/Dextrose (Nexterone Ivpb) 360 mg in 200 mls @ 16.667 mls/hr IV .Q12H KEM Stop: 05/07/24 19:39 Last Infusion: 05/07/24 17:51 Dose: 0 mls/hr Amiodarone HCl/Dextrose (Nexterone Ivpb) 360 mg in 200 mls @ 33.333 mls/hr IV .Q6H ONE Stop: 05/07/24 01:39 Last Admin: 05/06/24 22:36 Dose: 33.333 mls/hr Magnesium Sulfate (Magnesium Sulfate Ivpb) 4 gm in 50 mls @ 12.5 mls/hr IV X1 ONE Stop: 05/07/24 11:51 Last Infusion: 05/08/24 08:10 Dose: Infused Magnesium Sulfate (Magnesium Sulfate Ivpb) 4 gm in 50 mls @ 12.5 mls/hr IV X1 ONE Stop: 05/07/24 21:25 Last Infusion: 05/08/24 08:10 Dose: Infused Amiodarone HCl/Dextrose (Nexterone Ivpb) 360 mg in 200 mls @ 33.333 mls/hr IV .Q6H ONE Stop: 05/07/24 23:39 Last Infusion: 05/08/24 08:09 Dose: Infused Amiodarone HCl/Dextrose (Nexterone Ivpb) 360 mg in 200 mls @ 33.333 mls/hr IV .Q6H ONE Stop: 05/08/24 05:07 Last Infusion: 05/08/24 08:09 Dose: Infused Potassium Chloride (Potassium Chloride 10% 20 Meq/15 Ml Udc) 20 meq GT X1 ONE Stop: 05/08/24 07:07 Last Admin: 05/08/24 08:20 Dose: 20 meq Rocuronium [place] (Rocuronium Inj 10 Mg/Ml Vial 10 Ml) 50 mg IVP X1 ONE Stop: 05/06/24 08:14 Last Admin: 05/06/24 08:11 Dose: 50 mg Assessment & Plan Plan 83-year-old male with past medical history of NIDDM, COPD (on home oxygen), hyperlipidemia, tobacco use disorder, A-fib, 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 1. A-fib with RVR 2. Heart failure with preserved ejection fraction (EF 50 to 55%) ?Patient went to A-fib with RVR overnight on second day of admission. ? Last EKG on file was from 04/13/2024 which showed A-fib with RVR ?Patient received Amio drip and 250 mg digoxin x 1 during that episode of A-fib with RVR ?[id number] SCORE 5 points indicating a stroke risk of 7.2%, therefore patient should be on anticoagulation -Echo done by education trainer on-call on day of admission showed the following: Normal LV size and function. Estimated EF 50-55% Normal RV sizea function. Estimated RVSP 39mmHg Eccentric moderate MR. Moderate PI.Mild TR. Trace AI. Mild AV sclerosis without stenosis. Pleural effusion present. Plan: ? Digoxin 0.25 mg x 1 again today ?Recommend to continue amiodarone 200 mg twice daily for now ?Recommend to start amiodarone drip if patient is still not rate controlled or develops any further arrhythmias. ? Recommend to aggressively replete potassium and magnesium, maintain potassium above 4 and magnesium above 2 to avoid any further arrhythmias. ?Strict JULIAN's ? Daily weights 3. Septic shock secondary to obstructive pneumonia 4. Thick-walled pulmonary mass of left upper lobe 5. Acute hypoxic respiratory failure 6. Lactic acidosis 7. Left pleural effusion ?Patient came in with respiratory distress and eventually required intubation and initiation of vasopressors. ? Initially patient met SIRS criteria with 3 out of 4 with leukocytosis, tachypnea, and tachycardia ?CT chest/abdomen/pelvis which showed a large tumor mass in the left upper lobe surrounding the left pulmonary artery and compressing the left pulmonary artery segment and compressing the left bronchial tree ?chest x-ray which showed left base pneumonia with left pleural fluid ?Currently on vancomycin and Zosyn ?Currently on norepinephrine at 9 mL/h ? Recommend to continue vasopressors ?Continue current management as per ICU team 8. Microcytic anemia ?Patient has a history of iron deficiency anemia ? Recommend to hold iron repletion as patient has an active infection ?Continue current management as per ICU team 9. NIDDM 10. Hyperlipidemia ?Continue management as per ICU team Continue rest of management as per primary team. We are grateful to be able to participate in Mr. Ma' care. Thank you for the consult Plan of care discussed with attending Case Monitor, Dr Sydney Morales MD PGY-1 Attending Provider Attestation/Addendum I have personally seen and examined the patient separately on the above date of service and discussed the plan of care with the resident. I reviewed the resident Dr. Ma consultation progress note and agree with the resident findings and plan in the note above and have also edited the documentation to reflect my findings and plan. Jean Carlos Grimes M.D. Interventional Cardiology
[2024-05-08 09:41] LABS: Lactic Acid, 3 HR 2.7 mMol/L (0.4-2.0)
[2024-05-08 09:58] LABS: Vancomycin,Trough 16.7 mcg/mL (5.0-10.0)
[2024-05-08] MEDS: VANCOMYCIN/NS 750 MG IVPB 750 MG/150 ML BAG 120 MG IV ×2 (10:35→21:24)
[2024-05-08] MEDS: AMIODARONE HCL 200 MG TABLET PO ×2 (10:35→20:28)
[2024-05-08] MEDS: ALBUTEROL/IPRATROPIUM (Duoneb) RT SOL 3 ML NEBU INH ×2 (11:59→18:00)
--- NOTE | 2024-05-08 13:34 | PC.DIETICIAN ---
Nutrition prescription Patient is at significant risk for refeeding syndrome given low BMI, poor oral intake, and significant weight loss. Recommend: 1. Thiamine 100mg/day for 7 days; provide first dose at least 30 minutes before starting nutrition. 2. Multivitamins/Minerals. 3. Glucerna 1.2 at 15 ml/hr via NG tube by pump. Advance 10 ml every 12 hrs to goal rate of 45 ml/hr x 24 hrs. If no IV fluids, water flushes of 25 ml/hr (or per MD).
[2024-05-08] MEDS: DIGOXIN INJ 0.25 MG/ML AMP 2 ML IVP (14:02)
--- NOTE | 2024-05-08 15:04 | PC.SS ---
Update: Patient remains intubated/sedated. NG tube in place, feedings paused. No skin issues present. Patient is not on pressors. Cruz catheter in place.
--- NOTE | 2024-05-08 15:43 | ESPR_ITS ---
<Statement entered by David Koch MD - 05/09/24 08:10> TOTAL TIME: 45MINUTES ON DIRECT MEDICAL CARE, MANAGEMENT - COORDINATION AND COUNSELING > 50% OF TOTAL TIME I saw and evaluated the patient. I reviewed the resident?s note and agree with findings and plan as documented in the resident?s note. Patient was placed on pressure support ventilation but was intermittently apneic and therefore sedation was weaned further. He was also placed on SIMV mode with a backup rate of 5. Spontaneous respirations with low pressure support of 8 cm H2O resulted in adequate tidal volumes between 400 to greater than 500. RSBI 38. Neph -29 cm H2O. Patient meets criteria for extubation however after discussion with family at bedside they wanted to wait until further family members arrived from [place] in order to review goals of care. The patient is currently a DNR with a high risk of requiring reintubation due to the extent of infiltrative lung cancer. Continue antibiotics and follow-up all culture results continue supportive care, tube feeds etc. Documentation for date of: 05/08/24 Subjective Subjective Interval history: 05/07/2024; Patient was seen and examined by bedside, remains sedated and intubated, patient requires increase of Levophed rate to maintain MAP> 65, will start patient on midodrine 3 times daily, heart rate noted to be in 140s, with BP 78/51 patient was given digoxin 250 mcg IV x 1, amiodarone rate was increased to 1 mg/minute and magnesium repleted again with 4g per cardiology recommendations. Continue patient on current antibiotics with vancomycin and Zosyn for postobstructive pneumonia pending sputum culture and sensitivity for de-escalation. Goals of care discussion held with family regarding expectations for patient in light of patient's advanced lung cancer and poor prognosis, and 2 daughters were present and emphasized patient's comfort as priority, but would like more time to include other family members in their decision making. 05/08/2024: Patient seen and examined by bedside, main sedated and intubated. Patient weaned off Levophed, maintaining MAP> 65. Patient maintaining tachycardia, amiodarone drip transition to p.o. amiodarone. Sedation decreased, patient was placed on SIMV vent mode patient was able to tolerate for short while, had to be transitioned back to assist-control: 15 reps per minute, tidal volume 350. Patient currently receiving fentanyl and propofol. Patient's son is flying in from [place], patient's family wants him to arrive before making final decisions regarding goals of care. Will continue to attempt transition to pressure support in anticipation of potential extubation. Exam Vital Signs Temp Pulse Resp BP Pulse Ox O2 Del Method FiO2 97.1 F 85 22 H 121/57 L 99 Mechanical Ventilation 30 05/08/24 12:01 05/08/24 14:32 05/08/24 12:01 05/08/24 14:32 05/08/24 14:32 05/06/24 20:50 05/08/24 14:32 Narrative Exam GEN: Critically ill, not acutely distressed, sedated and intubated. Sedation decreased, patient at times alerts, eyes tracking. Neuro: Unable to obtain, patient sedated. HEENT: NCAT, trachea midline, dry mucous membranes, ET tube in place, NG tube noted. CVS: RRR, S1/S2 present, no M/R/G. No JVD Respi: Mechanically ventilated, coarse breath sounds throughout. ABD: Soft, no grimace to palpation. Skin: warm, dry and intact. Extremities: Pulses 3+, no edema/cyanosis. Objective Labs 05/08/24 05:18 05/08/24 05:18 Labs: Laboratory Results - last 24 hr 05/07/24 05/07/24 05/08/24 18:16 21:29 04:47 WBC RBC Hgb Hct MCV MCH MCHC RDW Std Deviation Plt Count Neut % (Auto) Lymph % (Auto) [place] % (Auto) Eos % (Auto) Baso % (Auto) Neut # (Auto) Lymph # (Auto) [place] # (Auto) Eos # (Auto) Baso # (Auto) Immature Gran # (Auto) Absolute Nucleated RBC Immature Gran % Nucleated RBC % Puncture Site Right Radial ABG pH 7.41 ABG pCO2 44 ABG pO2 74 L ABG HCO3 28 H ABG O2 Saturation 95 ABG Base Excess 3 FiO2 30 Sodium Potassium Chloride Carbon Dioxide Anion Gap BUN Creatinine Estim Creat Clear Calc eGFR BUN/Creatinine Ratio Glucose Calculated Osmolality Lactic Acid 3.9 H 3.1 H Calcium Corrected Calcium Phosphorus Magnesium Iron TIBC Iron Saturation Unsat Iron Binding Total Bilirubin AST ALT Alkaline Phosphatase Total Protein Albumin Globulin Albumin/Globulin Ratio Vancomycin Trough 05/08/24 05/08/24 05:18 09:24 WBC 20.3 H RBC 4.22 L Hgb 9.6 L Hct 31.3 L MCV 74 L MCH 22.7 L MCHC 30.7 L RDW Std Deviation 52.6 H Plt Count 340 Neut % (Auto) 84 H Lymph % (Auto) 6 L [place] % (Auto) 8 Eos % (Auto) 1 Baso % (Auto) 1 Neut # (Auto) 16.9 H Lymph # (Auto) 1.2 [place] # (Auto) 1.6 H Eos # (Auto) 0.1 Baso # (Auto) 0.1 Immature Gran # (Auto) 0.31 H Absolute Nucleated RBC 0.02 H Immature Gran % 2 H Nucleated RBC % 0 Puncture Site ABG pH ABG pCO2 ABG pO2 ABG HCO3 ABG O2 Saturation ABG Base Excess FiO2 Sodium 137 Potassium 3.9 Chloride 99 Carbon Dioxide 26.0 Anion Gap 12 BUN 15 Creatinine 0.9 Estim Creat Clear Calc 37.1 L eGFR > 60 BUN/Creatinine Ratio 17 Glucose 119 H D Calculated Osmolality 275 Lactic Acid 3.0 H 2.7 H Calcium 10.3 D Corrected Calcium 10.9 H D Phosphorus 3.4 Magnesium 2.7 H Iron 12 L TIBC 201 L Iron Saturation 5 L Unsat Iron Binding 189 L Total Bilirubin 0.6 AST 34 ALT 17 Alkaline Phosphatase 85 D Total Protein 5.3 L Albumin 3.2 L Globulin 2.1 L Albumin/Globulin Ratio 1.5 Vancomycin Trough 16.7 H ABG Interpretation ABG results: 05/06/24 05/06/24 05/07/24 06:25 09:15 04:15 ABG pH 7.45 7.40 7.40 ABG pCO2 49 H 54 H 51 H ABG pO2 85 406 H D 70 L D ABG HCO3 34 H 34 H 32 H ABG O2 Saturation 97 101 H 94 ABG Base Excess 9 H 8 H 6 H 05/08/24 04:47 ABG pH 7.41 ABG pCO2 44 ABG pO2 74 L ABG HCO3 28 H ABG O2 Saturation 95 ABG Base Excess 3 Quality Measures Quality Measures sepsis Current suspected stage: sepsis Possible source: pulmonary Blood cultures ordered: yes Antibiotic ordered: Yes Advance care planning discussed with:: child Assessment & Plan Assessment Current Active Medications: Generic Name Dose Route Start Last Admin Trade Name Freq PRN Reason Stop Dose Admin Acetaminophen 650 mg 05/06/24 17:37 Acetaminophen 325 Mg Tablet PO 06/05/24 17:36 Q4HR PRN PAIN SCALE 1-3 (mild Acetaminophen 650 mg 05/06/24 17:37 Acetaminophen Supp 650 Mg Supp MT 06/05/24 17:36 Q4HR PRN PAIN SCALE 1-3 (mild Albuterol/Ipratropium 3 ml 05/08/24 13:00 05/08/24 11:59 Albuterol/Ipratropium (Duoneb) Rt Melissa 3 Ml Nebu INH 06/07/24 12:59 3 ml Q6HRRT KEM Administration Amiodarone HCl 200 mg 05/08/24 10:00 05/08/24 10:35 Amiodarone Hcl 200 Mg Tablet PO 06/07/24 09:59 200 mg BID KEM Administration Dextrose 25 ml 05/07/24 02:18 Dextrose 50%-Water Inj 50 Ml Syringe IV 06/06/24 02:17 Q15MIN PRN BG 50-70 responsive npo pt Dextrose 50 ml 05/07/24 02:18 Dextrose 50%-Water Inj 50 Ml Syringe IV 06/06/24 02:17 Q15MIN PRN BG <50 OR BG <70 & pt unresponsive Enoxaparin Sodium 40 mg 05/07/24 09:00 05/08/24 08:19 Enoxaparin Sod Inj 40 Mg/0.4 Ml Syringe SC 05/21/24 08:59 40 mg QDAY KEM Administration Glucagon 1 mg 05/07/24 02:18 Glucagon Inj 1 Mg Vial IM Q15MIN PRN BG <70, and no IV access Piperacillin Sod/Tazobactam 50 mls @ 100 mls/hr 05/06/24 17:11 05/08/24 11:51 Sod 3.375 gm/ Sodium Chloride IV 05/13/24 17:10 100 mls/hr Q6HR KEM Administration Norepinephrine Bitartrate 16 mg in 250 mls @ 2.126 mls/hr 05/06/24 18:00 05/08/24 14:16 Levophed In Ns 16mg/250ml IV 06/05/24 17:59 0 mcg/kg/min .Q24H PRN 0 mls/hr PER PROTOCOL Titration Protocol 0.05 MCG/KG/MIN Vancomycin/Sodium Chloride 750 mg in 150 mls @ 120 mls/hr 05/07/24 10:00 05/08/24 10:35 Vancomycin/Ns 750 Mg Ivpb IV 05/14/24 09:59 120 mls/hr BID@1000,2200 KEM Administration Protocol Fentanyl Citrate 2,500 mcg in 250 mls @ 2.5 mls/hr 05/08/24 09:13 05/08/24 14:00 Sublimaze Inj 2,500 Mcg/250 Ml Bag IV 05/11/24 09:21 25 mcg/hr .Q24H PRN 2.5 mls/hr PER PROTOCOL Titration Protocol 25 MCG/HR Propofol 1,000 mg in 100 mls @ 1.332 mls/hr 05/08/24 09:13 Diprivan Ivpb IV 06/05/24 09:19 .Q24H PRN PER PROTOCOL Protocol 5 MCG/KG/MIN Insulin Human Lispro 0 unit 05/07/24 06:00 05/08/24 12:00 Insulin Lispro (Admelog) 1 Unit/0.01 Ml Unit SC 06/06/24 05:59 Not Given Q6HR [facility] Protocol Midodrine 10 mg 05/07/24 14:00 05/08/24 14:02 Midodrine 5 Mg Tablet PO 06/06/24 13:59 10 mg TID KEM Administration Pantoprazole Sodium 40 mg 05/07/24 09:00 05/08/24 08:20 Pantoprazole Inj 40 Mg Vial IV 06/06/24 08:59 40 mg QDAY KEM Administration Pharmacy Consult 1 each 05/06/24 17:15 05/08/24 09:00 Vancomycin Pharmacy To Dose 1 Each Each IV 06/05/24 17:14 Not Given QDAY KEM Plan 83-year-old male with previous medical history of pulmonary mass, COPD on 2 L home oxygen, NIDDM, anemia with previous recent admission at [facility] and [facility] was brought in to the ED due to respiratory distress. He arrived on CPAP. According to the niece at the bedside, during the night he was experience cold sweats, in the morning his saturation started decreased to the 60s and ambulance was called. NEURO: Patient is sedated and intubated. CT head negative for acute stroke or trauma. #No active problems Plan: ? Sedation with propofol fentanyl RASS goal is awake. CARDIO: #Septic shock 2/2 Post obstructive PNA-resolved #Afib with RVR #Lactic acidosis Patient was given diltiazem 50 mg once. Patient received fluid resuscitation 30 cc/kg per sepsis protocol Patient received amiodarone drip, transition to p.o. Patient received IV digoxin to 50 mcg x 1 Patient weaned off Levophed Plan: - telemetry monitoring - Fluid resuscitated with 30cc/KG per sepsis protocol. -Amiodarone 20 mg p.o. twice daily PULM: #Acute hypoxic respiratory failure Ddx: Multifactorial: Secondary to extensive pneumonia plus extensive lung carcinoma plus extensive emphysema Patient has a history of long-term smoking. Pulmonary mass was discovered in 2022, recent biopsy revealed Lung Ca. During this admission, [facility] was contacted for possible transfer for bronchial stent placement, patient was not accepted for transfer due to absent interventional pulmonology service at [facility]. 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 compressing the left pulmonary artery segment and compressing the left bronchial tree. Plan: - continue mechanical ventilation, transition to pressure support. - Zosyn 05/06/24-present - Vancomycin 05/06/24-present - chest physiotherapy - Sputum cultures sent 05/06 - De-escalate Abx as warranted. - Monitor ABG GI: Tube feeds ordered via NG tube Tube feeds not yet initiated, waiting for pump NEPHRO: #No active problems HEME/ONC: #Microcytic Anemia In setting of Iron deficiency anemia. F/U Iron panel Hold iron repletion in setting of acute infection. Continue to monitor CBC ENDO: #No active problems ID: #Post obstructive PNA In setting of compressing lung ca. Patient started on Vanc and Zosyn in light of recent hospitalization. F/U Cultures. F/U daily CBC. MSK: #No active problems SKIN: #Left upper back skin abrasion at site of defibrillator pad. Apply wound dressing and continue daily care. DVT prophylaxis:lovenox GI prophylaxis: pantoprazole Diet: NPO. Cruz: Present Lines: peripheral lines Antibiotics: vancomycin+zosyn CODE STATUS: DNR Plan of care discussed with attending Dr. Koch. Alexander Elizondo MD PGY-1
[2024-05-08] MEDS: PROPOFOL 1,000 MG IVPB 1,000 MG/100 ML VIAL 1.332 MG IV (19:58)
[2024-05-09] VITALS (108 sets, daily range): BP systolic 90–148; BP diastolic 49–91; PULSE 77–143; RESP 12–18; TEMP 36.1–37; O2SAT 88–100; BMI 18.0
[2024-05-09] MEDS: ALBUTEROL/IPRATROPIUM (Duoneb) RT SOL 3 ML NEBU INH ×4 (00:10→18:10)
[2024-05-09] MEDS: PIPER/TAZO INJ 3.375 GM in SODIUM CHLORIDE 0.9% (P) 50 ML IV ×4 (01:19→17:14)
[2024-05-09 04:17] LABS: Base Excess -1 (-3-3); HCO3 26 mEq/L (20-26); Inspired Oxygen, FIO2 30 %; O2 Saturation 95 % (91-98); PCO2 53 mmHg (32.0-48.0); PO2 78 mmHg (83-108)
[2024-05-09 04:23] LABS: Allen Test Not Performed; Puncture Site Site Not Noted
[2024-05-09] MEDS: MIDODRINE 5 MG TABLET 10 MG PO ×3 (05:10→20:50)
[2024-05-09 06:06] LABS: Basophils # (Auto) 0.1 Thou/mm3 (0.0-0.2); Basophils % (Auto) 0 % (0-2.5); Eosinophils # (Auto) 0.1 Thou/mm3 (0.0-0.5); Eosinophils % (Auto) 0 % (0-10); Hematocrit 30.4 % (41.0-53.0); Hemoglobin 9.2 g/dL (13.5-16.0); Immature Granulocytes % (Auto) 1 % (0-0); Lymphocytes # (Auto) 0.7 Thou/mm3 (1.0-4.8); Lymphocytes % (Auto) 4 % (10-50); Mean Corpuscular HGB Conc 30.3 g/dl (31.0-37.0); Mean Corpuscular Hemoglobin 23.2 pg (25.0-35.0); Mean Corpuscular Volume 77 fL (80-100); Monocytes # (Auto) 1.1 Thou/mm3 (0.0-0.8); Monocytes % (Auto) 6 % (0-12); Neutrophils # (Auto) 15.5 Thou/mm3 (1.8-7.7); Neutrophils % (Auto) 88 % (37-80); Nucleated Red Blood Cell # 0.05 Thou/mm3 (0.00-0.00); Nucleated Red Blood Cell % 0 /100 WBC (0); Platelet Count 461 Thou/mm3 (140-440); RDW Standard Deviation 54.8 fL (35.1-43.9); Red Blood Count 3.97 Miln/mm3 (4.50-5.90); White Blood Count 17.6 Thou/mm3 (3.8-10.6)
[2024-05-09 06:28] LABS: Alanine Aminotransferase 34 U/L (10-49); Albumin, Serum 3.1 gm/dL (3.4-4.8); Albumin/Globulin Ratio 1.3 (1.2-2.2); Alkaline Phosphatase 91 U/L (46-116); Anion Gap 13 (7-16); Aspartate Amino Transferase 37 U/L (0-34); BUN/Creatinine Ratio 18 Ratio (12-20); Bilirubin,Total 0.6 mg/dL (0.3-1.2); Blood Urea Nitrogen 16 mg/dL (9-23); Calcium 11.3 mg/dL (8.3-10.6); Carbon Dioxide 24.6 mMol/L (20.0-31.0); Chloride 100 mMol/L (98-107); Creatinine (Component) 0.9 mg/dL (0.6-1.3); Estimated Creatinine Clearance 40.4 mL/min (>60); Globulin 2.3 gm/dL (2.3-3.5); Glucose 75 mg/dL (74-106); Osmolality,Calculated 275 (275-295); Phosphorous 3.5 mg/dL (2.4-5.1); Potassium 4.3 mMol/L (3.4-5.1); Sodium 138 mMol/L (136-145); Total Protein 5.4 gm/dL (5.7-8.2); eGFR > 60 See Note
[2024-05-09] MEDS: ENOXAPARIN SOD INJ 40 MG/0.4 ML SYRINGE SC (08:34)
[2024-05-09] MEDS: AMIODARONE HCL 200 MG TABLET PO ×2 (08:34→20:50)
[2024-05-09] MEDS: PANTOPRAZOLE INJ 40 MG VIAL IV (08:34)
--- NOTE | 2024-05-09 09:41 | PD.RESPRO ---
Documentation for date of: 05/09/24 Subjective Subjective Interval history: Patient seen and examined at bedside this morning. Patient is still mechanically ventilated. Patient's blood pressure was on the lower end today as well in the 90s over 50s. Patient is still currently on amiodarone 200 mg twice daily and midodrine 10 mg 3 times daily. Patient appeared to be rate controlled in the 80s overnight. Patient still has some sporadic extremity movements and open his eye, but was not able to trace. Patient's clinical status is mainly unchanged. Exam Vital Signs Temp Pulse Resp BP Pulse Ox O2 Del Method FiO2 97.5 F 122 H 18 91/52 L 98 Mechanical Ventilation 30 05/09/24 08:00 05/09/24 08:45 05/09/24 06:15 05/09/24 08:45 05/09/24 08:45 05/09/24 06:31 05/09/24 06:31 Narrative Exam Constitutional Sedated and mechanically ventilated, Cachectic, Temporal wasting, Elderly HEENT Eyes closed. Patent nares. Trachea midline Respiratory Bronchial breath sounds, intubated. Cardiovascular S1 and S2 audible, RRR. Abdominal Soft, BS + Musculoskeletal No cyanosis. No LE edema. Neurological Sedated. Skin Warm, dry and intact. No apparent lesions. Objective Labs 05/09/24 04:44 05/09/24 04:44 Labs: Laboratory Results - last 24 hr 05/08/24 05/09/24 05/09/24 09:24 04:07 04:44 WBC 17.6 H RBC 3.97 L Hgb 9.2 L Hct 30.4 L MCV 77 L MCH 23.2 L MCHC 30.3 L RDW Std Deviation 54.8 H Plt Count 461 H D Neut % (Auto) 88 H Lymph % (Auto) 4 L [place] % (Auto) 6 Eos % (Auto) 0 Baso % (Auto) 0 Neut # (Auto) 15.5 H Lymph # (Auto) 0.7 L [place] # (Auto) 1.1 H Eos # (Auto) 0.1 Baso # (Auto) 0.1 Immature Gran # (Auto) 0.20 H Absolute Nucleated RBC 0.05 H Immature Gran % 1 H Nucleated RBC % 0 Puncture Site Site Not Noted ABG pH 7.30 L D ABG pCO2 53 H ABG pO2 78 L ABG HCO3 26 ABG O2 Saturation 95 ABG Base Excess -1 FiO2 30 Sodium 138 Potassium 4.3 Chloride 100 Carbon Dioxide 24.6 Anion Gap 13 BUN 16 Creatinine 0.9 Estim Creat Clear Calc 40.4 L eGFR > 60 BUN/Creatinine Ratio 18 Glucose 75 Calculated Osmolality 275 Lactic Acid 2.7 H Calcium 11.3 H Corrected Calcium 12.0 H Phosphorus 3.5 Magnesium 2.0 Total Bilirubin 0.6 AST 37 H ALT 34 Alkaline Phosphatase 91 Total Protein 5.4 L Albumin 3.1 L Globulin 2.3 Albumin/Globulin Ratio 1.3 Vancomycin Trough 16.7 H ABG Interpretation ABG results: 05/06/24 05/06/24 05/07/24 06:25 09:15 04:15 ABG pH 7.45 7.40 7.40 ABG pCO2 49 H 54 H 51 H ABG pO2 85 406 H D 70 L D ABG HCO3 34 H 34 H 32 H ABG O2 Saturation 97 101 H 94 ABG Base Excess 9 H 8 H 6 H 05/08/24 05/09/24 04:47 04:07 ABG pH 7.41 7.30 L D ABG pCO2 44 53 H ABG pO2 74 L 78 L ABG HCO3 28 H 26 ABG O2 Saturation 95 95 ABG Base Excess 3 -1 Quality Measures Quality Measures sepsis Current suspected stage: sepsis Possible source: pulmonary Blood cultures ordered: yes Antibiotic ordered: Yes Advance care planning discussed with:: patient Assessment & Plan Assessment Current Active Medications: Generic Name Dose Route Start Last Admin Trade Name Freq PRN Reason Stop Dose Admin Acetaminophen 650 mg 05/06/24 17:37 Acetaminophen 325 Mg Tablet PO 06/05/24 17:36 Q4HR PRN PAIN SCALE 1-3 (mild Acetaminophen 650 mg 05/06/24 17:37 Acetaminophen Supp 650 Mg Supp [place] 06/05/24 17:36 Q4HR PRN PAIN SCALE 1-3 (mild Albuterol/Ipratropium 3 ml 05/08/24 13:00 05/09/24 06:14 Albuterol/Ipratropium (Duoneb) Rt Melissa 3 Ml Nebu INH 06/07/24 12:59 3 ml Q6HRRT KEM Administration Amiodarone HCl 200 mg 05/08/24 10:00 05/09/24 08:34 Amiodarone Hcl 200 Mg Tablet PO 06/07/24 09:59 200 mg BID KEM Administration Dextrose 25 ml 05/07/24 02:18 Dextrose 50%-Water Inj 50 Ml Syringe IV 06/06/24 02:17 Q15MIN PRN BG 50-70 responsive npo pt Dextrose 50 ml 05/07/24 02:18 Dextrose 50%-Water Inj 50 Ml Syringe IV 06/06/24 02:17 Q15MIN PRN BG <50 OR BG <70 & pt unresponsive Enoxaparin Sodium 40 mg 05/07/24 09:00 05/09/24 08:34 Enoxaparin Sod Inj 40 Mg/0.4 Ml Syringe SC 05/21/24 08:59 40 mg QDAY KEM Administration Glucagon 1 mg 05/07/24 02:18 Glucagon Inj 1 Mg Vial IM Q15MIN PRN BG <70, and no IV access Piperacillin Sod/Tazobactam 50 mls @ 100 mls/hr 05/06/24 17:11 05/09/24 05:53 Sod 3.375 gm/ Sodium Chloride IV 05/13/24 17:10 Infused Q6HR KEM Infusion Norepinephrine Bitartrate 16 mg in 250 mls @ 2.126 mls/hr 05/06/24 18:00 05/09/24 07:00 Levophed In Ns 16mg/250ml IV 06/05/24 17:59 0.01 mcg/kg/min .Q24H PRN 0.425 mls/hr PER PROTOCOL Titration Protocol 0.05 MCG/KG/MIN Vancomycin/Sodium Chloride 750 mg in 150 mls @ 120 mls/hr 05/07/24 10:00 05/08/24 22:41 Vancomycin/Ns 750 Mg Ivpb IV 05/14/24 09:59 Infused BID@1000,2200 KEM Infusion Protocol Fentanyl Citrate 2,500 mcg in 250 mls @ 2.5 mls/hr 05/08/24 09:13 05/09/24 07:00 Sublimaze Inj 2,500 Mcg/250 Ml Bag IV 05/11/24 09:21 125 mcg/hr .Q24H PRN 12.5 mls/hr PER PROTOCOL Titration Protocol 25 MCG/HR Propofol 1,000 mg in 100 mls @ 1.332 mls/hr 05/08/24 09:13 05/09/24 07:00 Diprivan Ivpb IV 06/05/24 09:19 5 mcg/kg/min .Q24H PRN 1.332 mls/hr PER PROTOCOL Titration Protocol 5 MCG/KG/MIN Insulin Human Lispro 0 unit 05/07/24 06:00 05/09/24 05:26 Insulin Lispro (Admelog) 1 Unit/0.01 Ml Unit SC 06/06/24 05:59 Not Given Q6HR [facility] Protocol Midodrine 10 mg 05/07/24 14:00 05/09/24 05:10 Midodrine 5 Mg Tablet PO 06/06/24 13:59 10 mg TID KEM Administration Multivitamins/Minerals 15 ml 05/09/24 09:15 Multivitamin 15 Ml Udc NG 06/08/24 09:14 QDAY [facility] Pantoprazole Sodium 40 mg 05/07/24 09:00 05/09/24 08:34 Pantoprazole Inj 40 Mg Vial IV 06/06/24 08:59 40 mg QDAY [facility] Administration Pharmacy Consult 1 each 05/06/24 17:15 05/08/24 09:00 Vancomycin Pharmacy To Dose 1 Each Each IV 06/05/24 17:14 Not Given QDAY [facility] Thiamine HCl 100 mg 05/09/24 09:15 Thiamine Inj 100 Mg/Ml Vial 2 Ml IVP 05/15/24 09:14 QDAY [facility] Plan 83-year-old male with past medical history of NIDDM, COPD (on home oxygen), hyperlipidemia, tobacco use disorder, A-fib, 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 1. A-fib with RVR 2. Heart failure with preserved ejection fraction (EF 50 to 55%) ?Patient went to A-fib with RVR overnight on second day of admission. ? Last EKG on file was from 04/13/2024 which showed A-fib with RVR ?Patient received Amio drip and 250 mg digoxin x 1 during that episode of A-fib with RVR ?[id number] SCORE 5 points indicating a stroke risk of 7.2%, therefore patient should be on anticoagulation -Echo done by cleaner and preparer on-call on day of admission showed the following: Normal LV size and function. Estimated EF 50-55% Normal RV sizea function. Estimated RVSP 39mmHg Eccentric moderate MR. Moderate PI.Mild TR. Trace AI. Mild AV sclerosis without stenosis. Pleural effusion present. 05/09/2024 ? Patient has main and the heart rates of 80s overnight. ? Blood pressure has been in the 90s over 70s. ?Patient off norepinephrine. Plan: ?Recommend to continue amiodarone 200 mg twice daily for now ?Recommend to start amiodarone drip if patient is still not rate controlled or develops any further arrhythmias. ? Recommend to aggressively replete potassium and magnesium, maintain potassium above 4 and magnesium above 2 to avoid any further arrhythmias. ?Strict JULIAN's ? Daily weights -Low sodium diet 3. Septic shock secondary to obstructive pneumonia 4. Thick-walled pulmonary mass of left upper lobe 5. Acute hypoxic respiratory failure 6. Lactic acidosis 7. Left pleural effusion ?Patient came in with respiratory distress and eventually required intubation and initiation of vasopressors. ? Initially patient met SIRS criteria with 3 out of 4 with leukocytosis, tachypnea, and tachycardia ?CT chest/abdomen/pelvis which showed a large tumor mass in the left upper lobe surrounding the left pulmonary artery and compressing the left pulmonary artery segment and compressing the left bronchial tree ?chest x-ray which showed left base pneumonia with left pleural fluid ?Currently on vancomycin and Zosyn ? Recommend to continue vasopressors ?Continue current management as per ICU team 8. Microcytic anemia ?Patient has a history of iron deficiency anemia ? Recommend to hold iron repletion as patient has an active infection ?Continue current management as per ICU team 9. NIDDM 10. Hyperlipidemia ?Continue management as per ICU team Continue rest of management as per primary team. We are grateful to be able to participate in Mr. Ma' care. Thank you for the consult Plan of care discussed with attending Beauty Culturist Apprentice, Dr Sydney Morales MD PGY-1 Attending Provider Attestation/Addendum I have personally seen and examined the patient separately on the above date of service and discussed the plan of care with the resident. I reviewed the resident Dr. Ma consultation progress note and agree with the resident findings and plan in the note above and have also edited the documentation to reflect my findings and plan. Jean Carlos Grimes M.D. Interventional Cardiology
[2024-05-09] MEDS: THIAMINE INJ 100 MG/ML VIAL 2 ML IVP (10:02)
[2024-05-09] MEDS: VANCOMYCIN/NS 750 MG IVPB 750 MG/150 ML BAG 120 MG IV (10:02)
[2024-05-09] MEDS: MULTIVITAMIN 15 ML UDC NG (10:02)
--- NOTE | 2024-05-09 12:08 | ESPR_ITS ---
<Statement entered by David Koch MD - 05/10/24 07:49> TOTAL TIME: 45MINUTES ON DIRECT MEDICAL CARE, MANAGEMENT - COORDINATION AND COUNSELING > 50% OF TOTAL TIME I saw and evaluated the patient. I reviewed the resident?s note and agree with findings and plan as documented in the resident?s note. Patient is arousable and wean from sedation, left intubated as pending goals of care clarification from family members. Family is aware of patient's current clinical status. No new fevers Remains on antibiotics awaiting final culture results Tolerating tube feeds Documentation for date of: 05/09/24 Subjective Subjective Interval history: 05/07/2024; Patient was seen and examined by bedside, remains sedated and intubated, patient requires increase of Levophed rate to maintain MAP> 65, will start patient on midodrine 3 times daily, heart rate noted to be in 140s, with BP 78/51 patient was given digoxin 250 mcg IV x 1, amiodarone rate was increased to 1 mg/minute and magnesium repleted again with 4g per cardiology recommendations. Continue patient on current antibiotics with vancomycin and Zosyn for postobstructive pneumonia pending sputum culture and sensitivity for de-escalation. Goals of care discussion held with family regarding expectations for patient in light of patient's advanced lung cancer and poor prognosis, and 2 daughters were present and emphasized patient's comfort as priority, but would like more time to include other family members in their decision making. 05/08/2024: Patient seen and examined by bedside, remains sedated and intubated. Patient weaned off Levophed, maintaining MAP> 65. Patient maintaining tachycardia, amiodarone drip transition to p.o. amiodarone. Sedation decreased, patient was placed on SIMV vent mode patient was able to tolerate for short while, had to be transitioned back to assist-control: 15 reps per minute, tidal volume 350. Patient currently receiving fentanyl and propofol. Patient's son is flying in from [place], patient's family wants him to arrive before making final decisions regarding goals of care. Will continue to attempt transition to pressure support in anticipation of potential extubation. 05/09/2024: Patient seen and examined at bedside, remains sedated and intubated. Patient remains on assist control vent settings, reps increased to 18/min due to decreased pH and increased pCO2 on ABG. Patient corrected calcium mildly elevated, increased free water flushes from 25 to 50. Vancomycin discontinued will continue Zosyn pending culture. Call laboratory, sputum culture results ready tomorrow. Cruz discontinued, every 4 hour bladder scan, straight cath if greater than 400 mL. Exam Vital Signs Temp Pulse Resp BP Pulse Ox O2 Del Method FiO2 97.5 F 87 18 98/51 L 96 Mechanical Ventilation 30 05/09/24 08:00 05/09/24 11:30 05/09/24 06:15 05/09/24 11:30 05/09/24 11:30 05/09/24 06:31 05/09/24 10:23 Narrative Exam GEN: Critically ill, not acutely distressed, sedated and intubated. Sedation decreased, patient at times alerts, eyes tracking. Neuro: Unable to obtain, patient sedated. HEENT: NCAT, trachea midline, dry mucous membranes, ET tube in place, NG tube noted. CVS: RRR, S1/S2 present, no M/R/G. No JVD Respi: Mechanically ventilated, coarse breath sounds throughout. ABD: Soft, no grimace to palpation. Skin: warm, dry and intact. Extremities: Pulses 3+, no edema/cyanosis. Objective Labs 05/09/24 04:44 05/09/24 04:44 Labs: Laboratory Results - last 24 hr 05/09/24 05/09/24 04:07 04:44 WBC 17.6 H RBC 3.97 L Hgb 9.2 L Hct 30.4 L MCV 77 L MCH 23.2 L MCHC 30.3 L RDW Std Deviation 54.8 H Plt Count 461 H D Neut % (Auto) 88 H Lymph % (Auto) 4 L [place] % (Auto) 6 Eos % (Auto) 0 Baso % (Auto) 0 Neut # (Auto) 15.5 H Lymph # (Auto) 0.7 L [place] # (Auto) 1.1 H Eos # (Auto) 0.1 Baso # (Auto) 0.1 Immature Gran # (Auto) 0.20 H Absolute Nucleated RBC 0.05 H Immature Gran % 1 H Nucleated RBC % 0 Puncture Site Site Not Noted ABG pH 7.30 L D ABG pCO2 53 H ABG pO2 78 L ABG HCO3 26 ABG O2 Saturation 95 ABG Base Excess -1 FiO2 30 Sodium 138 Potassium 4.3 Chloride 100 Carbon Dioxide 24.6 Anion Gap 13 BUN 16 Creatinine 0.9 Estim Creat Clear Calc 40.4 L eGFR > 60 BUN/Creatinine Ratio 18 Glucose 75 Calculated Osmolality 275 Calcium 11.3 H Corrected Calcium 12.0 H Phosphorus 3.5 Magnesium 2.0 Total Bilirubin 0.6 AST 37 H ALT 34 Alkaline Phosphatase 91 Total Protein 5.4 L Albumin 3.1 L Globulin 2.3 Albumin/Globulin Ratio 1.3 ABG Interpretation ABG results: 05/06/24 05/06/24 05/07/24 06:25 09:15 04:15 ABG pH 7.45 7.40 7.40 ABG pCO2 49 H 54 H 51 H ABG pO2 85 406 H D 70 L D ABG HCO3 34 H 34 H 32 H ABG O2 Saturation 97 101 H 94 ABG Base Excess 9 H 8 H 6 H 05/08/24 05/09/24 04:47 04:07 ABG pH 7.41 7.30 L D ABG pCO2 44 53 H ABG pO2 74 L 78 L ABG HCO3 28 H 26 ABG O2 Saturation 95 95 ABG Base Excess 3 -1 Quality Measures Quality Measures sepsis Current suspected stage: sepsis Possible source: pulmonary Blood cultures ordered: yes Antibiotic ordered: Yes Advance care planning discussed with:: child Assessment & Plan Assessment Current Active Medications: Generic Name Dose Route Start Last Admin Trade Name Freq PRN Reason Stop Dose Admin Acetaminophen 650 mg 05/06/24 17:37 Acetaminophen 325 Mg Tablet PO 06/05/24 17:36 Q4HR PRN PAIN SCALE 1-3 (mild Acetaminophen 650 mg 05/06/24 17:37 Acetaminophen Supp 650 Mg Supp MD 06/05/24 17:36 Q4HR PRN PAIN SCALE 1-3 (mild Albuterol/Ipratropium 3 ml 05/08/24 13:00 05/09/24 06:14 Albuterol/Ipratropium (Duoneb) Rt Melissa 3 Ml Nebu INH 06/07/24 12:59 3 ml Q6HRRT KEM Administration Amiodarone HCl 200 mg 05/08/24 10:00 05/09/24 08:34 Amiodarone Hcl 200 Mg Tablet PO 06/07/24 09:59 200 mg BID KEM Administration Dextrose 25 ml 05/07/24 02:18 Dextrose 50%-Water Inj 50 Ml Syringe IV 06/06/24 02:17 Q15MIN PRN BG 50-70 responsive npo pt Dextrose 50 ml 05/07/24 02:18 Dextrose 50%-Water Inj 50 Ml Syringe IV 06/06/24 02:17 Q15MIN PRN BG <50 OR BG <70 & pt unresponsive Enoxaparin Sodium 40 mg 05/07/24 09:00 05/09/24 08:34 Enoxaparin Sod Inj 40 Mg/0.4 Ml Syringe SC 05/21/24 08:59 40 mg QDAY KEM Administration Glucagon 1 mg 05/07/24 02:18 Glucagon Inj 1 Mg Vial IM Q15MIN PRN BG <70, and no IV access Piperacillin Sod/Tazobactam 50 mls @ 100 mls/hr 05/06/24 17:11 05/09/24 11:37 Sod 3.375 gm/ Sodium Chloride IV 05/13/24 17:10 100 mls/hr Q6HR KEM Administration Norepinephrine Bitartrate 16 mg in 250 mls @ 2.126 mls/hr 05/06/24 18:00 05/09/24 07:00 Levophed In Ns 16mg/250ml IV 06/05/24 17:59 0.01 mcg/kg/min .Q24H PRN 0.425 mls/hr PER PROTOCOL Titration Protocol 0.05 MCG/KG/MIN Fentanyl Citrate 2,500 mcg in 250 mls @ 2.5 mls/hr 05/08/24 09:13 05/09/24 07:00 Sublimaze Inj 2,500 Mcg/250 Ml Bag IV 05/11/24 09:21 125 mcg/hr .Q24H PRN 12.5 mls/hr PER PROTOCOL Titration Protocol 25 MCG/HR Propofol 1,000 mg in 100 mls @ 1.332 mls/hr 05/08/24 09:13 05/09/24 07:00 Diprivan Ivpb IV 06/05/24 09:19 5 mcg/kg/min .Q24H PRN 1.332 mls/hr PER PROTOCOL Titration Protocol 5 MCG/KG/MIN Insulin Human Lispro 0 unit 05/07/24 06:00 05/09/24 11:41 Insulin Lispro (Admelog) 1 Unit/0.01 Ml Unit SC 06/06/24 05:59 Not Given Q6HR [facility] Protocol Midodrine 10 mg 05/07/24 14:00 05/09/24 05:10 Midodrine 5 Mg Tablet PO 06/06/24 13:59 10 mg TID KEM Administration Multivitamins/Minerals 15 ml 05/09/24 09:15 05/09/24 10:02 Multivitamin 15 Ml Udc NG 06/08/24 09:14 15 ml QDAY KEM Administration Pantoprazole Sodium 40 mg 05/07/24 09:00 05/09/24 08:34 Pantoprazole Inj 40 Mg Vial IV 06/06/24 08:59 40 mg QDAY KEM Administration Pharmacy Consult 1 each 05/06/24 17:15 05/09/24 10:00 Vancomycin Pharmacy To Dose 1 Each Each IV 06/05/24 17:14 Not Given QDAY KEM Thiamine HCl 100 mg 05/09/24 09:15 05/09/24 10:02 Thiamine Inj 100 Mg/Ml Vial 2 Ml IVP 05/15/24 09:14 100 mg QDAY KEM Administration Plan 83-year-old male with previous medical history of pulmonary mass, COPD on 2 L home oxygen, NIDDM, anemia with previous recent admission at [facility] and [facility] was brought in to the ED due to respiratory distress. He arrived on CPAP. According to the niece at the bedside, during the night he was experience cold sweats, in the morning his saturation started decreased to the 60s and ambulance was called. NEURO: Patient is sedated and intubated. CT head negative for acute stroke or trauma. #No active problems Plan: ? Sedation with propofol fentanyl RASS goal is awake. CARDIO: #Septic shock 2/2 Post obstructive PNA-resolved #Afib with RVR #Lactic acidosis Patient was given diltiazem 50 mg once. Patient received fluid resuscitation 30 cc/kg per sepsis protocol Patient received amiodarone drip, transition to p.o. Patient received IV digoxin to 50 mcg x 1 Patient weaned off Levophed Fluid resuscitated with 30cc/KG per sepsis protocol. Plan: -telemetry monitoring -Amiodarone 200 mg p.o. twice daily PULM: #Acute hypoxic respiratory failure Ddx: Multifactorial: Secondary to extensive pneumonia plus extensive lung carcinoma plus extensive emphysema Patient has a history of long-term smoking. Pulmonary mass was discovered in 2022, recent biopsy revealed Lung Ca. During this admission, [facility] was contacted for possible transfer for bronchial stent placement, patient was not accepted for transfer due to absent interventional pulmonology service at [facility]. 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 compressing the left pulmonary artery segment and compressing the left bronchial tree. Patient received vancomycin and Zosyn, vancomycin discontinued 05/09 ABG showed pH 7.3, pCO2 53, respiratory rate increased to 18/min Plan: - continue mechanical ventilation, transition to pressure support. - Zosyn 05/06/24-present - chest physiotherapy - Sputum cultures sent 05/06 - De-escalate Abx as warranted. GI: Tube feeds ordered via NG tube Tube feeds tolerated well -Monitor NEPHRO: #No active problems HEME/ONC: #Microcytic Anemia In setting of Iron deficiency anemia. F/U Iron panel Hold iron repletion in setting of acute infection. Continue to monitor CBC ENDO: #No active problems ID: #Post obstructive PNA In setting of compressing lung ca. Patient started on Vanc and Zosyn in light of recent hospitalization. Blood cultures negative Vancomycin discontinued -Zosyn 3.375 g IV every 6 hour (started 05/06) -Follow-up sputum culture MSK: #No active problems SKIN: #Left upper back skin abrasion at site of defibrillator pad. Apply wound dressing and continue daily care. DVT prophylaxis:lovenox GI prophylaxis: pantoprazole Diet: NG tube feeds Cruz: Discontinued Lines: peripheral lines Antibiotics: zosyn CODE STATUS: DNR Plan of care discussed with attending Dr. Koch. Alexander Elizondo MD PGY-1
--- NOTE | 2024-05-09 13:23 | CHAP ---
09:30 AM Visited by spiritual care volunteer Provided prayer for Patient.
[2024-05-09] MEDS: fentaNYL 2,500 MCG/250 ML BAG 2,500 MCG/250 ML BAG 7.5 MCG IV (17:00)
[2024-05-10] VITALS (64 sets, daily range): BP systolic 93–135; BP diastolic 47–73; PULSE 60–88; RESP 13–27; TEMP 36.6–37.1; O2SAT 89–100; BMI 18.0
[2024-05-10] MEDS: ALBUTEROL/IPRATROPIUM (Duoneb) RT SOL 3 ML NEBU INH ×4 (00:17→18:13)
--- NOTE | 2024-05-10 00:59 | PC.NURSE ---
[address] Burgos residuals 500ml received orders to return, hold feeding and reassess at 2300 if >200 return residuals and hold feeding til am 2300 residuals 400ml holding feeding until reassess in am
[2024-05-10] MEDS: PIPER/TAZO INJ 3.375 GM in SODIUM CHLORIDE 0.9% (P) 50 ML IV ×5 (01:00→23:13)
[2024-05-10] MEDS: MIDODRINE 5 MG TABLET 10 MG PO ×3 (05:35→21:35)
[2024-05-10 05:51] LABS: Basophils # (Auto) 0.1 Thou/mm3 (0.0-0.2); Basophils % (Auto) 0 % (0-2.5); Eosinophils # (Auto) 0.1 Thou/mm3 (0.0-0.5); Eosinophils % (Auto) 1 % (0-10); Hematocrit 27.5 % (41.0-53.0); Immature Granulocytes % (Auto) 1 % (0-0); Lymphocytes # (Auto) 0.7 Thou/mm3 (1.0-4.8); Lymphocytes % (Auto) 5 % (10-50); Mean Corpuscular HGB Conc 30.5 g/dl (31.0-37.0); Mean Corpuscular Hemoglobin 23.1 pg (25.0-35.0); Mean Corpuscular Volume 76 fL (80-100); Monocytes # (Auto) 1.4 Thou/mm3 (0.0-0.8); Monocytes % (Auto) 9 % (0-12); Neutrophils % (Auto) 83 % (37-80); Nucleated Red Blood Cell % 1 /100 WBC (0); Platelet Count 331 Thou/mm3 (140-440); RDW Standard Deviation 53.2 fL (35.1-43.9); Red Blood Count 3.63 Miln/mm3 (4.50-5.90); White Blood Count 14.4 Thou/mm3 (3.8-10.6)
[2024-05-10 05:59] LABS: Hemoglobin 8.4 g/dL (13.5-16.0)
[2024-05-10] MEDS: PROPOFOL 1,000 MG IVPB 1,000 MG/100 ML VIAL 1.332 MG IV (06:31)
[2024-05-10 06:57] LABS: Alanine Aminotransferase 38 U/L (10-49); Albumin/Globulin Ratio 1.4 (1.2-2.2); Alkaline Phosphatase 85 U/L (46-116); Anion Gap 10 (7-16); Aspartate Amino Transferase 54 U/L (0-34); BUN/Creatinine Ratio 18 Ratio (12-20); Bilirubin,Total 0.4 mg/dL (0.3-1.2); Blood Urea Nitrogen 14 mg/dL (9-23); Calcium 11.9 mg/dL (8.3-10.6); Calcium (Corrected) 12.7 mg/dL (8.5-10.1); Carbon Dioxide 25.7 mMol/L (20.0-31.0); Chloride 100 mMol/L (98-107); Creatinine (Component) 0.8 mg/dL (0.6-1.3); Estimated Creatinine Clearance 45.5 mL/min (>60); Globulin 2.2 gm/dL (2.3-3.5); Glucose 82 mg/dL (74-106); Osmolality,Calculated 271 (275-295); Potassium 4.3 mMol/L (3.4-5.1); Sodium 136 mMol/L (136-145); Total Protein 5.2 gm/dL (5.7-8.2); eGFR > 60 See Note
[2024-05-10 07:40] LABS: Base Excess 3 (-3-3); HCO3 28 mEq/L (20-26); Inspired Oxygen, FIO2 30 %; O2 Saturation 91 % (91-98); PCO2 48 mmHg (32.0-48.0); PO2 61 mmHg (83-108); pH, Arterial 7.38 (7.35-7.45)
[2024-05-10 07:41] LABS: Allen Test Performed/OK; Puncture Site Right Radial
[2024-05-10] MEDS: MULTIVITAMIN 15 ML UDC NG (08:28)
[2024-05-10] MEDS: THIAMINE INJ 100 MG/ML VIAL 2 ML IVP (08:28)
[2024-05-10] MEDS: ENOXAPARIN SOD INJ 40 MG/0.4 ML SYRINGE SC (08:28)
[2024-05-10] MEDS: PANTOPRAZOLE INJ 40 MG VIAL IV (08:28)
[2024-05-10] MEDS: AMIODARONE HCL 200 MG TABLET PO ×2 (08:28→20:14)
--- NOTE | 2024-05-10 08:51 | PD.RESPRO ---
Documentation for date of: 05/10/24 Subjective Subjective Interval history: Patient seen and examined at bedside this morning. Patient is still mechanically ventilated. Patient's blood pressure mildly improved today as well in the 110s over 50s Patient is still currently on amiodarone 200 mg twice daily and midodrine 10 mg 3 times daily and off of vasopressors. Patient appears to be in and out of A-fib overnight with the highest heart rate being pressure 150, but otherwise heart rate has been in the 80s. Patient still has some sporadic extremity movements and open his eye, but was not able to trace. Patient's clinical status is mainly unchanged. Exam Vital Signs Temp Pulse Resp BP Pulse Ox O2 Del Method FiO2 97.8 F 74 20 108/53 L 98 Mechanical Ventilation 30 05/10/24 08:00 05/10/24 08:30 05/10/24 06:20 05/10/24 08:30 05/10/24 08:30 05/10/24 08:00 05/10/24 08:00 Narrative Exam Constitutional Sedated and mechanically ventilated, Cachectic, Temporal wasting, Elderly HEENT Eyes closed. Patent nares. Trachea midline Respiratory Bronchial breath sounds, intubated. Cardiovascular S1 and S2 audible, RRR. Abdominal Soft, BS + Musculoskeletal No cyanosis. No LE edema. Neurological Sedated. Skin Warm, dry and intact. No apparent lesions. Objective Labs 05/10/24 04:37 05/10/24 04:37 Labs: Laboratory Results - last 24 hr 05/10/24 05/10/24 04:37 07:34 WBC 14.4 H RBC 3.63 L Hgb 8.4 L Hct 27.5 L MCV 76 L MCH 23.1 L MCHC 30.5 L RDW Std Deviation 53.2 H Plt Count 331 D Neut % (Auto) 83 H Lymph % (Auto) 5 L [place] % (Auto) 9 Eos % (Auto) 1 Baso % (Auto) 0 Neut # (Auto) 12.0 H Lymph # (Auto) 0.7 L [place] # (Auto) 1.4 H Eos # (Auto) 0.1 Baso # (Auto) 0.1 Immature Gran # (Auto) 0.20 H Absolute Nucleated RBC 0.10 H Immature Gran % 1 H Nucleated RBC % 1 H Puncture Site Right Radial ABG pH 7.38 ABG pCO2 48 ABG pO2 61 L ABG HCO3 28 H ABG O2 Saturation 91 ABG Base Excess 3 FiO2 30 Sodium 136 Potassium 4.3 Chloride 100 Carbon Dioxide 25.7 Anion Gap 10 BUN 14 Creatinine 0.8 Estim Creat Clear Calc 45.5 L eGFR > 60 BUN/Creatinine Ratio 18 Glucose 82 Calculated Osmolality 271 L Calcium 11.9 H Corrected Calcium 12.7 H Total Bilirubin 0.4 AST 54 H ALT 38 Alkaline Phosphatase 85 Total Protein 5.2 L Albumin 3.0 L Globulin 2.2 L Albumin/Globulin Ratio 1.4 ABG Interpretation ABG results: 05/06/24 05/06/24 05/07/24 06:25 09:15 04:15 ABG pH 7.45 7.40 7.40 ABG pCO2 49 H 54 H 51 H ABG pO2 85 406 H D 70 L D ABG HCO3 34 H 34 H 32 H ABG O2 Saturation 97 101 H 94 ABG Base Excess 9 H 8 H 6 H 05/08/24 05/09/24 05/10/24 04:47 04:07 07:34 ABG pH 7.41 7.30 L D 7.38 ABG pCO2 44 53 H 48 ABG pO2 74 L 78 L 61 L ABG HCO3 28 H 26 28 H ABG O2 Saturation 95 95 91 ABG Base Excess 3 -1 3 Quality Measures Quality Measures sepsis Current suspected stage: sepsis Possible source: pulmonary Blood cultures ordered: yes Antibiotic ordered: Yes Advance care planning discussed with:: patient Assessment & Plan Assessment Current Active Medications: Generic Name Dose Route Start Last Admin Trade Name Freq PRN Reason Stop Dose Admin Acetaminophen 650 mg 05/06/24 17:37 Acetaminophen 325 Mg Tablet PO 06/05/24 17:36 Q4HR PRN PAIN SCALE 1-3 (mild Acetaminophen 650 mg 05/06/24 17:37 Acetaminophen Supp 650 Mg Supp GA 06/05/24 17:36 Q4HR PRN PAIN SCALE 1-3 (mild Albuterol/Ipratropium 3 ml 05/08/24 13:00 05/10/24 06:19 Albuterol/Ipratropium (Duoneb) Rt Melissa 3 Ml Nebu INH 06/07/24 12:59 3 ml Q6HRRT KEM Administration Amiodarone HCl 200 mg 05/08/24 10:00 05/10/24 08:28 Amiodarone Hcl 200 Mg Tablet PO 06/07/24 09:59 200 mg BID KEM Administration Dextrose 25 ml 05/07/24 02:18 Dextrose 50%-Water Inj 50 Ml Syringe IV 06/06/24 02:17 Q15MIN PRN BG 50-70 responsive npo pt Dextrose 50 ml 05/07/24 02:18 Dextrose 50%-Water Inj 50 Ml Syringe IV 06/06/24 02:17 Q15MIN PRN BG <50 OR BG <70 & pt unresponsive Enoxaparin Sodium 40 mg 05/07/24 09:00 05/10/24 08:28 Enoxaparin Sod Inj 40 Mg/0.4 Ml Syringe SC 05/21/24 08:59 40 mg QDAY KEM Administration Glucagon 1 mg 05/07/24 02:18 Glucagon Inj 1 Mg Vial IM Q15MIN PRN BG <70, and no IV access Piperacillin Sod/Tazobactam 50 mls @ 100 mls/hr 05/06/24 17:11 05/10/24 05:35 Sod 3.375 gm/ Sodium Chloride IV 05/13/24 17:10 100 mls/hr Q6HR KEM Administration Norepinephrine Bitartrate 16 mg in 250 mls @ 2.126 mls/hr 05/06/24 18:00 05/09/24 15:48 Levophed In Ns 16mg/250ml IV 06/05/24 17:59 0 mcg/kg/min .Q24H PRN 0 mls/hr PER PROTOCOL Titration Protocol 0.05 MCG/KG/MIN Fentanyl Citrate 2,500 mcg in 250 mls @ 2.5 mls/hr 05/08/24 09:13 05/10/24 06:00 Sublimaze Inj 2,500 Mcg/250 Ml Bag IV 05/11/24 09:21 75 mcg/hr .Q24H PRN 7.5 mls/hr PER PROTOCOL Titration Protocol 25 MCG/HR Propofol 1,000 mg in 100 mls @ 1.332 mls/hr 05/08/24 09:13 05/10/24 06:31 Diprivan Ivpb IV 06/05/24 09:19 5 mcg/kg/min .Q24H PRN 1.332 mls/hr PER PROTOCOL Administration Protocol 5 MCG/KG/MIN Insulin Human Lispro 0 unit 05/07/24 06:00 05/10/24 07:12 Insulin Lispro (Admelog) 1 Unit/0.01 Ml Unit SC 06/06/24 05:59 Not Given Q6HR [facility] Protocol Midodrine 10 mg 05/07/24 14:00 05/10/24 05:35 Midodrine 5 Mg Tablet PO 06/06/24 13:59 10 mg TID KEM Administration Multivitamins/Minerals 15 ml 05/09/24 09:15 05/10/24 08:28 Multivitamin 15 Ml Udc NG 06/08/24 09:14 15 ml QDAY KEM Administration Pantoprazole Sodium 40 mg 05/07/24 09:00 05/10/24 08:28 Pantoprazole Inj 40 Mg Vial IV 06/06/24 08:59 40 mg QDAY KEM Administration Thiamine HCl 100 mg 05/09/24 09:15 05/10/24 08:28 Thiamine Inj 100 Mg/Ml Vial 2 Ml IVP 05/15/24 09:14 100 mg QDAY KEM Administration Plan 83-year-old male with past medical history of NIDDM, COPD (on home oxygen), hyperlipidemia, tobacco use disorder, A-fib, 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 1. A-fib with RVR 2. Heart failure with preserved ejection fraction (EF 50 to 55%) ?Patient went to A-fib with RVR overnight on second day of admission. ? Last EKG on file was from 04/13/2024 which showed A-fib with RVR ?Patient received Amio drip and 250 mg digoxin x 1 during that episode of A-fib with RVR ?[id number] SCORE 5 points indicating a stroke risk of 7.2%, therefore patient should be on anticoagulation -Echo done by technical clerk on-call on day of admission showed the following: Normal LV size and function. Estimated EF 50-55% Normal RV sizea function. Estimated RVSP 39mmHg Eccentric moderate MR. Moderate PI.Mild TR. Trace AI. Mild AV sclerosis without stenosis. Pleural effusion present. 05/10/2024 ? Patient has maintain his heart rates in the 80s overnight, but was in/out of A-fib. ? Blood pressure has been in the 110/50s, on midodrine. ?Patient off norepinephrine. Plan: ?Recommend to continue amiodarone 200 mg twice daily for now ?Recommend to start amiodarone drip if patient is still not rate controlled or develops any further arrhythmias. ? Recommend to aggressively replete potassium and magnesium, maintain potassium above 4 and magnesium above 2 to avoid any further arrhythmias. ?Strict JULIAN's ? Daily weights -Low sodium diet 3. Septic shock secondary to obstructive pneumonia 4. Thick-walled pulmonary mass of left upper lobe 5. Acute hypoxic respiratory failure 6. Lactic acidosis 7. Left pleural effusion ?Patient came in with respiratory distress and eventually required intubation and initiation of vasopressors. ? Initially patient met SIRS criteria with 3 out of 4 with leukocytosis, tachypnea, and tachycardia ?CT chest/abdomen/pelvis which showed a large tumor mass in the left upper lobe surrounding the left pulmonary artery and compressing the left pulmonary artery segment and compressing the left bronchial tree ?chest x-ray which showed left base pneumonia with left pleural fluid ?Currently on Zosyn ? Recommend to continue midodrine ?Continue current management as per ICU team 8. Microcytic anemia ?Patient has a history of iron deficiency anemia ? Recommend to hold iron repletion as patient has an active infection ?Continue current management as per ICU team 9. NIDDM 10. Hyperlipidemia ?Continue management as per ICU team Continue rest of management as per primary team. We are grateful to be able to participate in Mr. Ma' care. Thank you for the consult Plan of care discussed with attending Operational Review Sergeant, Dr Sydney Morales MD PGY-1 Attending Provider Attestation/Addendum I have personally seen and examined the patient separately on the above date of service and discussed the plan of care with the resident. I reviewed the resident Dr. Ma consultation progress note and agree with the resident findings and plan in the note above and have also edited the documentation to reflect my findings and plan. Jean Carlos Grimes M.D. Interventional Cardiology
--- NOTE | 2024-05-10 10:32 | PC.CM ---
received call from Tate with [facility] that pt is open with them.
[2024-05-10] MEDS: DEXMEDETOMIDINE 400 MCG IVPB 400 MCG/100 ML BAG IV (13:58)
--- NOTE | 2024-05-10 15:26 | PC.SS ---
Update: Patient remains intubated. Patient is not receiving pressors at current time. Feeds continue via NG tube.
--- NOTE | 2024-05-10 16:05 | ESPR_ITS ---
<Statement entered by David Koch MD - 05/14/24 09:17> TOTAL TIME: 45MINUTES ON DIRECT MEDICAL CARE, MANAGEMENT - COORDINATION AND COUNSELING > 50% OF TOTAL TIME I saw and evaluated the patient. I reviewed the resident?s note and agree with findings and plan as documented in the resident?s note. family conference held with many members reviewed imaging of lung and progression of aggressive malignancy discussed pts improvement on MV and cont'd abx STM not likely true infx as 1+ only and improving despite not being on abx that are S to it passed SBT and NIF was > -20 Family does not want him reintubated should he fail extubation We will re-consult oncology as well to determine if he is a candidate for therapy - however, given his functional status this seems unlikely Documentation for date of: 05/10/24 Subjective Subjective Interval history: 05/07/2024; Patient was seen and examined by bedside, remains sedated and intubated, patient requires increase of Levophed rate to maintain MAP> 65, will start patient on midodrine 3 times daily, heart rate noted to be in 140s, with BP 78/51 patient was given digoxin 250 mcg IV x 1, amiodarone rate was increased to 1 mg/minute and magnesium repleted again with 4g per cardiology recommendations. Continue patient on current antibiotics with vancomycin and Zosyn for postobstructive pneumonia pending sputum culture and sensitivity for de-escalation. Goals of care discussion held with family regarding expectations for patient in light of patient's advanced lung cancer and poor prognosis, and 2 daughters were present and emphasized patient's comfort as priority, but would like more time to include other family members in their decision making. 05/08/2024: Patient seen and examined by bedside, remains sedated and intubated. Patient weaned off Levophed, maintaining MAP> 65. Patient maintaining tachycardia, amiodarone drip transition to p.o. amiodarone. Sedation decreased, patient was placed on SIMV vent mode patient was able to tolerate for short while, had to be transitioned back to assist-control: 15 reps per minute, tidal volume 350. Patient currently receiving fentanyl and propofol. Patient's son is flying in from [place], patient's family wants him to arrive before making final decisions regarding goals of care. Will continue to attempt transition to pressure support in anticipation of potential extubation. 05/09/2024: Patient seen and examined at bedside, remains sedated and intubated. Patient remains on assist control vent settings, reps increased to 18/min due to decreased pH and increased pCO2 on ABG. Patient corrected calcium mildly elevated, increased free water flushes from 25 to 50. Vancomycin discontinued will continue Zosyn pending culture. Call laboratory, sputum culture results ready tomorrow. Cruz discontinued, every 4 hour bladder scan, straight cath if greater than 400 mL. 05/10/2024: Patient seen and examined at bedside, remains intubated. Patient weaned off sedation, on minimum dose precedex, is responsive to verbal stimuli but does not follow commands. Extensive goals of care conversation held with entire family. Family agreed to keep patient DNR/DNI. Will attempt to extubate patient when appropriate, after which patient will be made hospice care in agreement with family and in line with patient's values and wishes. Exam Vital Signs Temp Pulse Resp BP Pulse Ox O2 Del Method FiO2 98.6 F 80 20 132/62 H 96 Mechanical Ventilation 30 05/10/24 12:00 05/10/24 15:00 05/10/24 14:16 05/10/24 15:00 05/10/24 15:00 05/10/24 15:00 05/10/24 15:00 Narrative Exam GEN: Patient on minimal sedation, intubated. Does not appear acutely distressed. Neuro: Opens eyes to verbal stimuli, purposeless movements, does not follow commands. HEENT: NCAT, trachea midline, dry mucous membranes, ET tube in place, NG tube noted. CVS: RRR, S1/S2 present, no M/R/G. No JVD Respi: Mechanically ventilated, coarse breath sounds throughout. ABD: Soft, no grimace to palpation. Skin: warm, dry and intact. Extremities: Pulses 3+, no edema/cyanosis. Objective Labs 05/10/24 04:37 05/10/24 04:37 Labs: Laboratory Results - last 24 hr 05/10/24 05/10/24 04:37 07:34 WBC 14.4 H RBC 3.63 L Hgb 8.4 L Hct 27.5 L MCV 76 L MCH 23.1 L MCHC 30.5 L RDW Std Deviation 53.2 H Plt Count 331 D Neut % (Auto) 83 H Lymph % (Auto) 5 L [place] % (Auto) 9 Eos % (Auto) 1 Baso % (Auto) 0 Neut # (Auto) 12.0 H Lymph # (Auto) 0.7 L [place] # (Auto) 1.4 H Eos # (Auto) 0.1 Baso # (Auto) 0.1 Immature Gran # (Auto) 0.20 H Absolute Nucleated RBC 0.10 H Immature Gran % 1 H Nucleated RBC % 1 H Puncture Site Right Radial ABG pH 7.38 ABG pCO2 48 ABG pO2 61 L ABG HCO3 28 H ABG O2 Saturation 91 ABG Base Excess 3 FiO2 30 Sodium 136 Potassium 4.3 Chloride 100 Carbon Dioxide 25.7 Anion Gap 10 BUN 14 Creatinine 0.8 Estim Creat Clear Calc 45.5 L eGFR > 60 BUN/Creatinine Ratio 18 Glucose 82 Calculated Osmolality 271 L Calcium 11.9 H Corrected Calcium 12.7 H Total Bilirubin 0.4 AST 54 H ALT 38 Alkaline Phosphatase 85 Total Protein 5.2 L Albumin 3.0 L Globulin 2.2 L Albumin/Globulin Ratio 1.4 ABG Interpretation ABG results: 05/06/24 05/06/24 05/07/24 06:25 09:15 04:15 ABG pH 7.45 7.40 7.40 ABG pCO2 49 H 54 H 51 H ABG pO2 85 406 H D 70 L D ABG HCO3 34 H 34 H 32 H ABG O2 Saturation 97 101 H 94 ABG Base Excess 9 H 8 H 6 H 05/08/24 05/09/24 05/10/24 04:47 04:07 07:34 ABG pH 7.41 7.30 L D 7.38 ABG pCO2 44 53 H 48 ABG pO2 74 L 78 L 61 L ABG HCO3 28 H 26 28 H ABG O2 Saturation 95 95 91 ABG Base Excess 3 -1 3 Quality Measures Quality Measures sepsis Current suspected stage: sepsis Possible source: pulmonary Blood cultures ordered: yes Antibiotic ordered: Yes Advance care planning discussed with:: spouse, child and sibling Assessment & Plan Assessment Current Active Medications: Generic Name Dose Route Start Last Admin Trade Name Freq PRN Reason Stop Dose Admin Acetaminophen 650 mg 05/06/24 17:37 Acetaminophen 325 Mg Tablet PO 06/05/24 17:36 Q4HR PRN PAIN SCALE 1-3 (mild Acetaminophen 650 mg 05/06/24 17:37 Acetaminophen Supp 650 Mg Supp IA 06/05/24 17:36 Q4HR PRN PAIN SCALE 1-3 (mild Albuterol/Ipratropium 3 ml 05/08/24 13:00 05/10/24 14:15 Albuterol/Ipratropium (Duoneb) Rt Melissa 3 Ml Nebu INH 06/07/24 12:59 3 ml Q6HRRT KEM Administration Amiodarone HCl 200 mg 05/08/24 10:00 05/10/24 08:28 Amiodarone Hcl 200 Mg Tablet PO 06/07/24 09:59 200 mg BID KEM Administration Dextrose 25 ml 05/07/24 02:18 Dextrose 50%-Water Inj 50 Ml Syringe IV 06/06/24 02:17 Q15MIN PRN BG 50-70 responsive npo pt Dextrose 50 ml 05/07/24 02:18 Dextrose 50%-Water Inj 50 Ml Syringe IV 06/06/24 02:17 Q15MIN PRN BG <50 OR BG <70 & pt unresponsive Enoxaparin Sodium 40 mg 05/07/24 09:00 05/10/24 08:28 Enoxaparin Sod Inj 40 Mg/0.4 Ml Syringe SC 05/21/24 08:59 40 mg QDAY KEM Administration Glucagon 1 mg 05/07/24 02:18 Glucagon Inj 1 Mg Vial IM Q15MIN PRN BG <70, and no IV access Piperacillin Sod/Tazobactam 50 mls @ 100 mls/hr 05/06/24 17:11 05/10/24 13:56 Sod 3.375 gm/ Sodium Chloride IV 05/13/24 17:10 Infused Q6HR KEM Infusion Norepinephrine Bitartrate 16 mg in 250 mls @ 2.126 mls/hr 05/06/24 18:00 05/09/24 15:48 Levophed In Ns 16mg/250ml IV 06/05/24 17:59 0 mcg/kg/min .Q24H PRN 0 mls/hr PER PROTOCOL Titration Protocol 0.05 MCG/KG/MIN Fentanyl Citrate 2,500 mcg in 250 mls @ 2.5 mls/hr 05/08/24 09:13 05/10/24 13:00 Sublimaze Inj 2,500 Mcg/250 Ml Bag IV 05/11/24 09:21 25 mcg/hr .Q24H PRN 2.5 mls/hr PER PROTOCOL Titration Protocol 25 MCG/HR Propofol 1,000 mg in 100 mls @ 1.332 mls/hr 05/10/24 12:45 Diprivan Ivpb IV 06/05/24 09:19 .Q24H PRN PER PROTOCOL Protocol 5 MCG/KG/MIN Dexmedetomidine/Sodium Chloride 400 mcg in 100 mls @ 2.22 mls/hr 05/10/24 12:44 05/10/24 13:58 Precedex Ivpb IV 06/09/24 12:43 0.2 mcg/kg/hr .Q24H PRN 2.22 mls/hr Per PROTOCOL Administration Protocol 0.2 MCG/KG/HR Insulin Human Lispro 0 unit 05/07/24 06:00 05/10/24 11:53 Insulin Lispro (Admelog) 1 Unit/0.01 Ml Unit SC 06/06/24 05:59 Not Given Q6HR KEM Protocol Midodrine 10 mg 05/07/24 14:00 05/10/24 13:58 Midodrine 5 Mg Tablet PO 06/06/24 13:59 10 mg TID KEM Administration Multivitamins/Minerals 15 ml 05/09/24 09:15 05/10/24 08:28 Multivitamin 15 Ml Udc NG 06/08/24 09:14 15 ml QDAY KEM Administration Pantoprazole Sodium 40 mg 05/07/24 09:00 05/10/24 08:28 Pantoprazole Inj 40 Mg Vial IV 06/06/24 08:59 40 mg QDAY KEM Administration Thiamine HCl 100 mg 05/09/24 09:15 05/10/24 08:28 Thiamine Inj 100 Mg/Ml Vial 2 Ml IVP 05/15/24 09:14 100 mg QDAY KEM Administration Plan 83-year-old male with previous medical history of pulmonary mass, COPD on 2 L home oxygen, NIDDM, anemia with previous recent admission at [facility] and [facility] was brought in to the ED due to respiratory distress. He arrived on CPAP. According to the niece at the bedside, during the night he was experience cold sweats, in the morning his saturation started decreased to the 60s and ambulance was called. NEURO: Patient is intubated. CT head negative for acute stroke or trauma. Sedation weaned down to minimum sedation with Precedex. Alert to verbal stimuli, does not follow commands. #No active problems Plan: ? Minimal sedation with Precedex -Reassess mental status tomorrow. CARDIO: #Septic shock 2/2 Post obstructive PNA-resolved #Afib with RVR-rate controlled #Lactic acidosis Patient was given diltiazem 50 mg once. Patient received fluid resuscitation 30 cc/kg per sepsis protocol Patient received amiodarone drip, transition to p.o. Patient received IV digoxin to 50 mcg x 1 Patient weaned off Levophed Fluid resuscitated with 30cc/KG per sepsis protocol. Plan: -telemetry monitoring -Amiodarone 200 mg p.o. twice daily PULM: #Acute hypoxic respiratory failure Ddx: Multifactorial: Secondary to extensive pneumonia plus extensive lung carcinoma plus extensive emphysema Patient has a history of long-term smoking. Pulmonary mass was discovered in 2022, recent biopsy revealed Lung Ca. During this admission, [facility] was contacted for possible transfer for bronchial stent placement, patient was not accepted for transfer due to absent interventional pulmonology service at [facility]. 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 compressing the left pulmonary artery segment and compressing the left bronchial tree. Patient received vancomycin and Zosyn, vancomycin discontinued 05/09 ABG showed pH 7.3, pCO2 53, respiratory rate increased to 18/min Sputum culture showed 1+ stenotrophomonas maltophilia, suspect colonization Plan: - continue mechanical ventilation, transition to pressure support. - Zosyn 05/06/24-present - chest physiotherapy - De-escalate Abx as warranted. GI: Tube feeds ordered via NG tube Tube feeds tolerated well -Monitor NEPHRO: #No active problems HEME/ONC: #Microcytic Anemia In setting of Iron deficiency anemia. F/U Iron panel Hold iron repletion in setting of acute infection. Continue to monitor CBC ENDO: #No active problems ID: #Post obstructive PNA In setting of compressing lung ca. Patient started on Vanc and Zosyn in light of recent hospitalization. Blood cultures negative Vancomycin discontinued Sputum culture positive for 1+ stenotrophomonas maltophilia -Zosyn 3.375 g IV every 6 hour (started 05/06) MSK: #No active problems SKIN: #Left upper back skin abrasion at site of defibrillator pad. Apply wound dressing and continue daily care. DVT prophylaxis:lovenox GI prophylaxis: pantoprazole Diet: NG tube feeds Cruz: Discontinued Lines: peripheral lines Antibiotics: zosyn CODE STATUS: DNR Plan of care discussed with attending Dr. Koch. Alexander Elizondo MD PGY-1
[2024-05-10] MEDS: ACETAMINOPHEN 325 MG TABLET 650 MG PO (20:14)
[2024-05-11] VITALS (36 sets, daily range): BP systolic 76–151; BP diastolic 47–92; PULSE 51–137; RESP 9–28; TEMP 36.2–36.6; O2SAT 94–100; BMI 18.0
[2024-05-11] MEDS: ALBUTEROL/IPRATROPIUM (Duoneb) RT SOL 3 ML NEBU INH ×4 (00:34→18:29)
[2024-05-11 04:44] LABS: Base Excess 2 (-3-3); HCO3 27 mEq/L (20-26); Inspired Oxygen, FIO2 30 %; O2 Saturation 97 % (91-98); PCO2 43 mmHg (32.0-48.0); PO2 81 mmHg (83-108); pH, Arterial 7.41 (7.35-7.45)
[2024-05-11 04:46] LABS: Allen Test Performed/OK
[2024-05-11 04:47] LABS: Puncture Site Right Radial
--- NOTE | 2024-05-11 05:00 | XR_ITS ---
Examination: AP chest single view Technique one AP portable semiupright chest single view Exam date 06/11/2023 at 0612 hrs. Comparison May 07, 2024 Indications: Hypoxic respiratory failure, large tumor mass in the left upper lobe on earlier imaging this week and CT chest study May 06, 2024, difficulty breathing, postintubation, repositioned tracheal tube Findings: Again noted large pulmonary mass left upper lobe Bilateral lung opacity ARDS pneumonia with mild to moderate vascular congestion Orogastric tube projects in the stomach, the tip below the level of the film Tracheal tube tip 5.2 cm above keyla Impression: Large pulmonary mass left upper lobe again noted Bilateral pneumonia ARDS Tracheal tube tip 5.1 cm above keyla
[2024-05-11] MEDS: PIPER/TAZO INJ 3.375 GM in SODIUM CHLORIDE 0.9% (P) 50 ML IV ×4 (05:20→23:34)
[2024-05-11] MEDS: MIDODRINE 5 MG TABLET 10 MG PO ×2 (05:20→14:22)
[2024-05-11 06:38] LABS: Alanine Aminotransferase 42 U/L (10-49); Albumin, Serum 2.8 gm/dL (3.4-4.8); Albumin/Globulin Ratio 1.3 (1.2-2.2); Alkaline Phosphatase 89 U/L (46-116); Anion Gap 10 (7-16); Aspartate Amino Transferase 50 U/L (0-34); BUN/Creatinine Ratio 19 Ratio (12-20); Bilirubin,Total 0.7 mg/dL (0.3-1.2); Blood Urea Nitrogen 15 mg/dL (9-23); Calcium 12.5 mg/dL (8.3-10.6); Carbon Dioxide 26.2 mMol/L (20.0-31.0); Chloride 97 mMol/L (98-107); Creatinine (Component) 0.8 mg/dL (0.6-1.3); Estimated Creatinine Clearance 45.5 mL/min (>60); Globulin 2.1 gm/dL (2.3-3.5); Glucose 94 mg/dL (74-106); Osmolality,Calculated 267 (275-295); Potassium 4.7 mMol/L (3.4-5.1); Sodium 133 mMol/L (136-145); Total Protein 4.9 gm/dL (5.7-8.2); eGFR > 60 See Note
[2024-05-11 06:48] LABS: Calcium (Corrected) 13.5 mg/dL (8.5-10.1)
[2024-05-11 07:47] LABS: Basophils # (Auto) 0.1 Thou/mm3 (0.0-0.2); Basophils % (Auto) 0 % (0-2.5); Eosinophils # (Auto) 0.1 Thou/mm3 (0.0-0.5); Eosinophils % (Auto) 0 % (0-10); Hematocrit 27.6 % (41.0-53.0); Immature Granulocytes % (Auto) 1 % (0-0); Immature Granulocytes Auto 0.17 Thou/mm3 (0.00-0.00); Lymphocytes # (Auto) 0.5 Thou/mm3 (1.0-4.8); Lymphocytes % (Auto) 4 % (10-50); Mean Corpuscular HGB Conc 31.5 g/dl (31.0-37.0); Mean Corpuscular Hemoglobin 23.1 pg (25.0-35.0); Mean Corpuscular Volume 73 fL (80-100); Monocytes # (Auto) 1.2 Thou/mm3 (0.0-0.8); Monocytes % (Auto) 8 % (0-12); Neutrophils # (Auto) 12.8 Thou/mm3 (1.8-7.7); Neutrophils % (Auto) 86 % (37-80); Nucleated Red Blood Cell # 0.27 Thou/mm3 (0.00-0.00); Nucleated Red Blood Cell % 2 /100 WBC (0); Platelet Count 300 Thou/mm3 (140-440); RDW Standard Deviation 49.6 fL (35.1-43.9); Red Blood Count 3.77 Miln/mm3 (4.50-5.90); White Blood Count 14.9 Thou/mm3 (3.8-10.6)
[2024-05-11 08:10] LABS: Hemoglobin 8.7 g/dL (13.5-16.0)
[2024-05-11] MEDS: ENOXAPARIN SOD INJ 40 MG/0.4 ML SYRINGE SC (08:38)
[2024-05-11] MEDS: PANTOPRAZOLE INJ 40 MG VIAL IV (08:38)
[2024-05-11] MEDS: MULTIVITAMIN 15 ML UDC NG (08:38)
[2024-05-11] MEDS: AMIODARONE HCL 200 MG TABLET PO ×2 (08:39→21:15)
[2024-05-11] MEDS: THIAMINE INJ 100 MG/ML VIAL 2 ML IVP (08:39)
--- NOTE | 2024-05-11 09:07 | PD.RESPRO ---
Documentation for date of: 05/11/24 Subjective Subjective Interval history: Patient seen and examined at bedside this morning. Patient is still mechanically ventilated. Patient's blood pressure mildly improved today as well in the 120s over 50s Patient is still currently on amiodarone 200 mg twice daily and midodrine 10 mg 3 times daily and off of vasopressors. Patient appears to be in and out of A-fib overnight, but HR has been in the 50's. Patient still has some sporadic extremity movements and open his eye, but was not able to trace. Patient's clinical status is mainly unchanged. Patient will be transitioned to hospice once he is extubated. We will sign off, please feel free to reach out with any questions. Exam Vital Signs Temp Pulse Resp BP Pulse Ox O2 Del Method FiO2 97.8 F 59 L 20 122/57 L 96 Mechanical Ventilation 30 05/11/24 04:00 05/11/24 08:39 05/11/24 06:54 05/11/24 08:39 05/11/24 07:59 05/11/24 07:00 05/11/24 07:59 Narrative Exam Constitutional Sedated and mechanically ventilated, Cachectic, Temporal wasting, Elderly HEENT Eyes closed. Patent nares. Trachea midline Respiratory Bronchial breah sounds, intubated. Cardiovascular S1 and S2 audible, RRR. Abdominal Soft, BS + Musculoskeletal No cyanosis. No LE edema. Neurological Sedated. Skin Warm, dry and intact. No apparent lesions. Objective Labs 05/11/24 07:10 05/11/24 05:32 Labs: Laboratory Results - last 24 hr 05/11/24 05/11/24 05/11/24 04:32 05:32 07:10 WBC 14.9 H RBC 3.77 L Hgb 8.7 L Hct 27.6 L MCV 73 L MCH 23.1 L MCHC 31.5 RDW Std Deviation 49.6 H Plt Count 300 D Neut % (Auto) 86 H Lymph % (Auto) 4 L [place] % (Auto) 8 Eos % (Auto) 0 Baso % (Auto) 0 Neut # (Auto) 12.8 H Lymph # (Auto) 0.5 L [place] # (Auto) 1.2 H Eos # (Auto) 0.1 Baso # (Auto) 0.1 Immature Gran # (Auto) 0.17 H Absolute Nucleated RBC 0.27 H Immature Gran % 1 H Nucleated RBC % 2 H Puncture Site Right Radial ABG pH 7.41 ABG pCO2 43 ABG pO2 81 L D ABG HCO3 27 H ABG O2 Saturation 97 ABG Base Excess 2 FiO2 30 Sodium 133 L Potassium 4.7 Chloride 97 L Carbon Dioxide 26.2 Anion Gap 10 BUN 15 Creatinine 0.8 Estim Creat Clear Calc 45.5 L eGFR > 60 BUN/Creatinine Ratio 19 Glucose 94 Calculated Osmolality 267 L Calcium 12.5 H Corrected Calcium 13.5 H* Total Bilirubin 0.7 AST 50 H ALT 42 Alkaline Phosphatase 89 Total Protein 4.9 L Albumin 2.8 L Globulin 2.1 L Albumin/Globulin Ratio 1.3 ABG Interpretation ABG results: 05/06/24 05/06/24 05/07/24 06:25 09:15 04:15 ABG pH 7.45 7.40 7.40 ABG pCO2 49 H 54 H 51 H ABG pO2 85 406 H D 70 L D ABG HCO3 34 H 34 H 32 H ABG O2 Saturation 97 101 H 94 ABG Base Excess 9 H 8 H 6 H 05/08/24 05/09/24 05/10/24 04:47 04:07 07:34 ABG pH 7.41 7.30 L D 7.38 ABG pCO2 44 53 H 48 ABG pO2 74 L 78 L 61 L ABG HCO3 28 H 26 28 H ABG O2 Saturation 95 95 91 ABG Base Excess 3 -1 3 05/11/24 04:32 ABG pH 7.41 ABG pCO2 43 ABG pO2 81 L D ABG HCO3 27 H ABG O2 Saturation 97 ABG Base Excess 2 Quality Measures Quality Measures sepsis Current suspected stage: sepsis Possible source: pulmonary Blood cultures ordered: yes Antibiotic ordered: Yes Advance care planning discussed with:: patient Assessment & Plan Assessment Current Active Medications: Generic Name Dose Route Start Last Admin Trade Name Freq PRN Reason Stop Dose Admin Acetaminophen 650 mg 05/06/24 17:37 05/10/24 20:14 Acetaminophen 325 Mg Tablet PO 06/05/24 17:36 650 mg Q4HR PRN Administration PAIN SCALE 1-3 (mild Acetaminophen 650 mg 05/06/24 17:37 Acetaminophen Supp 650 Mg Supp MO 06/05/24 17:36 Q4HR PRN PAIN SCALE 1-3 (mild Albuterol/Ipratropium 3 ml 05/08/24 13:00 05/11/24 06:55 Albuterol/Ipratropium (Duoneb) Rt Melissa 3 Ml Nebu INH 06/07/24 12:59 3 ml Q6HRRT KEM Administration Amiodarone HCl 200 mg 05/08/24 10:00 05/11/24 08:39 Amiodarone Hcl 200 Mg Tablet PO 06/07/24 09:59 200 mg BID KEM Administration Dextrose 25 ml 05/07/24 02:18 Dextrose 50%-Water Inj 50 Ml Syringe IV 06/06/24 02:17 Q15MIN PRN BG 50-70 responsive npo pt Dextrose 50 ml 05/07/24 02:18 Dextrose 50%-Water Inj 50 Ml Syringe IV 06/06/24 02:17 Q15MIN PRN BG <50 OR BG <70 & pt unresponsive Enoxaparin Sodium 40 mg 05/07/24 09:00 05/11/24 08:38 Enoxaparin Sod Inj 40 Mg/0.4 Ml Syringe SC 05/21/24 08:59 40 mg QDAY KEM Administration Glucagon 1 mg 05/07/24 02:18 Glucagon Inj 1 Mg Vial IM Q15MIN PRN BG <70, and no IV access Piperacillin Sod/Tazobactam 50 mls @ 100 mls/hr 05/06/24 17:11 05/11/24 08:52 Sod 3.375 gm/ Sodium Chloride IV 05/13/24 17:10 Infused Q6HR KEM Infusion Norepinephrine Bitartrate 16 mg in 250 mls @ 2.126 mls/hr 05/06/24 18:00 05/09/24 15:48 Levophed In Ns 16mg/250ml IV 06/05/24 17:59 0 mcg/kg/min .Q24H PRN 0 mls/hr PER PROTOCOL Titration Protocol 0.05 MCG/KG/MIN Fentanyl Citrate 2,500 mcg in 250 mls @ 2.5 mls/hr 05/08/24 09:13 05/10/24 14:00 Sublimaze Inj 2,500 Mcg/250 Ml Bag IV 05/11/24 09:21 0 mcg/hr .Q24H PRN 0 mls/hr PER PROTOCOL Titration Protocol 25 MCG/HR Propofol 1,000 mg in 100 mls @ 1.332 mls/hr 05/10/24 12:45 Diprivan Ivpb IV 06/05/24 09:19 .Q24H PRN PER PROTOCOL Protocol 5 MCG/KG/MIN Dexmedetomidine/Sodium Chloride 400 mcg in 100 mls @ 2.22 mls/hr 05/10/24 12:44 05/11/24 07:00 Precedex Ivpb IV 06/09/24 12:43 0.2 mcg/kg/hr .Q24H PRN 2.22 mls/hr Per PROTOCOL Titration Protocol 0.2 MCG/KG/HR Insulin Human Lispro 0 unit 05/07/24 06:00 05/11/24 07:02 Insulin Lispro (Admelog) 1 Unit/0.01 Ml Unit SC 06/06/24 05:59 Not Given Q6HR KEM Protocol Midodrine 10 mg 05/07/24 14:00 05/11/24 05:20 Midodrine 5 Mg Tablet PO 06/06/24 13:59 10 mg TID KEM Administration Morphine Sulfate 1 mg 05/10/24 19:56 Morphine Sulf Inj 10 Mg/Ml Vial IVP 05/15/24 19:55 Q4HR PRN PAIN SCALE 7-10 (Severe Multivitamins/Minerals 15 ml 05/09/24 09:15 05/11/24 08:38 Multivitamin 15 Ml Udc NG 06/08/24 09:14 15 ml QDAY KEM Administration Pantoprazole Sodium 40 mg 05/07/24 09:00 05/11/24 08:38 Pantoprazole Inj 40 Mg Vial IV 06/06/24 08:59 40 mg QDAY KEM Administration Thiamine HCl 100 mg 05/09/24 09:15 05/11/24 08:39 Thiamine Inj 100 Mg/Ml Vial 2 Ml IVP 05/15/24 09:14 100 mg QDAY KEM Administration Plan 83-year-old male with past medical history of NIDDM, COPD (on home oxygen), hyperlipidemia, tobacco use disorder, A-fib, 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 1. A-fib with RVR 2. Heart failure with preserved ejection fraction (EF 50 to 55%) ?Patient went to A-fib with RVR overnight on second day of admission. ? Last EKG on file was from 04/13/2024 which showed A-fib with RVR ?Patient received Amio drip and 250 mg digoxin x 1 during that episode of A-fib with RVR ?[id number] SCORE 5 points indicating a stroke risk of 7.2%, therefore patient should be on anticoagulation -Echo done by inspector balance truing on-call on day of admission showed the following: Normal LV size and function. Estimated EF 50-55% Normal RV sizea function. Estimated RVSP 39mmHg Eccentric moderate MR. Moderate PI.Mild TR. Trace AI. Mild AV sclerosis without stenosis. Pleural effusion present. 05/11/2024 ? Patient has maintain his heart rates in the 50s overnight, but was in/out of A-fib. ? Blood pressure has been in the 120/50s, on midodrine. ?Patient off norepinephrine. Plan: ?Recommend to continue amiodarone 200 mg twice daily for now ?Recommend to start amiodarone drip if patient is still not rate controlled or develops any further arrhythmias. ? Recommend to aggressively replete potassium and magnesium, maintain potassium above 4 and magnesium above 2 to avoid any further arrhythmias. ?Strict JULIAN's ? Daily weights -Low sodium diet 3. Septic shock secondary to obstructive pneumonia 4. Thick-walled pulmonary mass of left upper lobe 5. Acute hypoxic respiratory failure 6. Lactic acidosis 7. Left pleural effusion ?Patient came in with respiratory distress and eventually required intubation and initiation of vasopressors. ? Initially patient met SIRS criteria with 3 out of 4 with leukocytosis, tachypnea, and tachycardia ?CT chest/abdomen/pelvis which showed a large tumor mass in the left upper lobe surrounding the left pulmonary artery and compressing the left pulmonary artery segment and compressing the left bronchial tree ?chest x-ray which showed left base pneumonia with left pleural fluid ?Currently on Zosyn ? Recommend to continue midodrine ?Continue current management as per ICU team 8. Microcytic anemia ?Patient has a history of iron deficiency anemia ? Recommend to hold iron repletion as patient has an active infection ?Continue current management as per ICU team 9. NIDDM 10. Hyperlipidemia ?Continue management as per ICU team Patient will be transitioned to hospice once he is extubated. We will sign off, please feel free to reach out with any questions. Continue rest of management as per primary team. We are grateful to be able to participate in Mr. Ma' care. Thank you for the consult Plan of care discussed with attending Lab Associate, Dr Sydney Morales MD PGY-1 Attending Provider Attestation/Addendum I reviewed the resident Dr. Ma consultation progress note and agree with the resident findings and plan in the note above and have also edited the documentation to reflect my findings and plan. Jean Carlos Grimes M.D. Interventional Cardiology
--- NOTE | 2024-05-11 09:24 | PC.SS ---
agency [facility] contacted and requested to get a call back from when patient discharges [phone].
[2024-05-11] MEDS: DEXMEDETOMIDINE 400 MCG IVPB 400 MCG/100 ML BAG IV (11:35)
--- NOTE | 2024-05-11 11:43 | ESPR_ITS ---
Documentation for date of: 05/11/24 Subjective Subjective Interval history: This is a 83yo M admitted to the ICU on 05/06 for acute hypoxic resp failure and septic shock. He has a known h/o lung mass which is malignant in nature. He has been tx for PNA and is pressor requirements have resolved. Today he is on minimal sedation with precedex and able to tolerate minimal settings on the vent. sedation held and pt with GCS of ~10T. It is noted that his code status is DNR/DNI with poss transition to comfort care/hospice. Critical Care Note Critical care time (min.): 38 Exam Vital Signs Temp Pulse Resp BP Pulse Ox O2 Del Method FiO2 97.2 F 78 20 135/70 H 96 Mechanical Ventilation 30 05/11/24 08:01 05/11/24 11:00 05/11/24 06:54 05/11/24 11:00 05/11/24 11:00 05/11/24 11:00 05/11/24 11:00 Narrative Exam Gen- intubated, min sedation, elderly and frail, HEENT- NC/AT, mucosa hydrated, sclera anicteric, PERRL, ETT/OGT in place Chest- diminished, no crackles/wheeze, HRRR, no increase in WOB Abd- s/nt/bs+ ext- no edema, pulses palp, no clubbing, no mottling Vent PSV Physical Exam Completion Physical Exam Complete?: Yes Objective - [employer] Inspector Labs 05/11/24 07:10 05/11/24 05:32 Labs: Laboratory Results - last 24 hr 05/11/24 05/11/24 05/11/24 04:32 05:32 07:10 WBC 14.9 H RBC 3.77 L Hgb 8.7 L Hct 27.6 L MCV 73 L MCH 23.1 L MCHC 31.5 RDW Std Deviation 49.6 H Plt Count 300 D Neut % (Auto) 86 H Lymph % (Auto) 4 L [place] % (Auto) 8 Eos % (Auto) 0 Baso % (Auto) 0 Neut # (Auto) 12.8 H Lymph # (Auto) 0.5 L [place] # (Auto) 1.2 H Eos # (Auto) 0.1 Baso # (Auto) 0.1 Immature Gran # (Auto) 0.17 H Absolute Nucleated RBC 0.27 H Immature Gran % 1 H Nucleated RBC % 2 H Puncture Site Right Radial ABG pH 7.41 ABG pCO2 43 ABG pO2 81 L D ABG HCO3 27 H ABG O2 Saturation 97 ABG Base Excess 2 FiO2 30 Sodium 133 L Potassium 4.7 Chloride 97 L Carbon Dioxide 26.2 Anion Gap 10 BUN 15 Creatinine 0.8 Estim Creat Clear Calc 45.5 L eGFR > 60 BUN/Creatinine Ratio 19 Glucose 94 Calculated Osmolality 267 L Calcium 12.5 H Corrected Calcium 13.5 H* Total Bilirubin 0.7 AST 50 H ALT 42 Alkaline Phosphatase 89 Total Protein 4.9 L Albumin 2.8 L Globulin 2.1 L Albumin/Globulin Ratio 1.3 Assessment & Plan Additional Plan Additional Plan: In summary this is a 83yo M admitted with acute hypoxic resp failure 2/2 lung malignancy and PNA 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 intake Nutrition-once he is extubated bedside swallow and diet as tolerated Endo stable Heme Leukocytosis-likely multifactorial and secondary to underlying pneumonia as well as possible malignancy related Anemia-mild monitor ID Remains on Zosyn case d/w ICU team and SW ? home hospice labs, imaging, records reviewed ~38ccmin required for eval, exam, review, intervention, discussion and formulation of POC for this critically ill pt with resp failure Provider Notation Provider Notation: Although this document has been carefully reviewed, there may still be some phonetic and other typographical errors. These errors are purely grammatical due to imperfections in the software program and should not be construed in any way to compromise the substance of the patient's medical care during this visit. Thank you for the opportunity and privilege in assisting you with this patient's care and management.
[2024-05-11] MEDS: ZOLEDRONIC ACID 4 MG IVPB 4 MG/100 ML BAG 400 MG IV (14:22)
[2024-05-11] MEDS: METOPROLOL TARTRATE INJ 1 MG/ML AMP 5 ML 5 MG IVP (14:38)
--- NOTE | 2024-05-11 15:36 | EVENTNT_ITS ---
Documentation for date of: 05/11/24 Event Note Event Note: Notified by ICU resident for ICU downgrade. Mr. Wilmer Ma is a 83 year old male with PMH of COPD (2L home O2), NIDDM, recently diagnosed with lung carcinoma admitted to the ICU for acute hypoxic respiratory failure secondary and septic shock to post-obstructive pneumonia. He was intubated and started on pressor support and antibiotics. He was successfully extubated on 05/09 and weaned off pressors. Blood cultures were n egative and sputum culture grew 1+ stenotrophomonas maltophilia. During his hospital stay, he also had afib with RVR now managed with amiodarone. There was discussion of goals of care with the patient's family regarding hospice or home health. Patient to be downgraded to floors for continued management and we will take over care on 05/12. I have reviewed and discussed the patient's care with my attending, Dr. Kurt Hay MD PGY-3
--- NOTE | 2024-05-11 15:40 | ESPR_ITS ---
Documentation for date of: 05/11/24 Subjective Subjective Interval history: 05/07/2024; Patient was seen and examined by bedside, remains sedated and intubated, patient requires increase of Levophed rate to maintain MAP> 65, will start patient on midodrine 3 times daily, heart rate noted to be in 140s, with BP 78/51 patient was given digoxin 250 mcg IV x 1, amiodarone rate was increased to 1 mg/minute and magnesium repleted again with 4g per cardiology recommendations. Continue patient on current antibiotics with vancomycin and Zosyn for postobstructive pneumonia pending sputum culture and sensitivity for de-escalation. Goals of care discussion held with family regarding expectations for patient in light of patient's advanced lung cancer and poor prognosis, and 2 daughters were present and emphasized patient's comfort as priority, but would like more time to include other family members in their decision making. 05/08/2024: Patient seen and examined by bedside, remains sedated and intubated. Patient weaned off Levophed, maintaining MAP> 65. Patient maintaining tachycardia, amiodarone drip transition to p.o. amiodarone. Sedation decreased, patient was placed on SIMV vent mode patient was able to tolerate for short while, had to be transitioned back to assist-control: 15 reps per minute, tidal volume 350. Patient currently receiving fentanyl and propofol. Patient's son is flying in from [place], patient's family wants him to arrive before making final decisions regarding goals of care. Will continue to attempt transition to pressure support in anticipation of potential extubation. 05/09/2024: Patient seen and examined at bedside, remains sedated and intubated. Patient remains on assist control vent settings, reps increased to 18/min due to decreased pH and increased pCO2 on ABG. Patient corrected calcium mildly elevated, increased free water flushes from 25 to 50. Vancomycin discontinued will continue Zosyn pending culture. Call laboratory, sputum culture results ready tomorrow. Cruz discontinued, every 4 hour bladder scan, straight cath if greater than 400 mL. 05/10/2024: Patient seen and examined at bedside, remains intubated. Patient weaned off sedation, on minimum dose precedex, is responsive to verbal stimuli but does not follow commands. Extensive goals of care conversation held with entire family. Family agreed to keep patient DNR/DNI. Will attempt to extubate patient when appropriate, after which patient will be made hospice care in agreement with family and in line with patient's values and wishes. 05/11/2024: Patient seen and examined at bedside. Patient remains minimally sedated, tolerated pressure support well. Was successfully extubated without incident, saturating well on nasal cannula. Family at bedside speaking in patient resighini language, patient did not verbally respond or open eyes, purposeless movements. 1 dose zoledronate given for hypercalcemia. Conversations held with family regarding discharge planning, family would like more time to discuss hospice verses home health, patient remains DNR/DNI. Stable for downgrade to [employer]. Exam Vital Signs Temp Pulse Resp BP Pulse Ox O2 Del Method O2 Flow Rate 97.6 F 111 H 14 112/59 L 99 Nasal Cannula 4 05/11/24 12:00 05/11/24 15:07 05/11/24 15:07 05/11/24 15:07 05/11/24 15:07 05/11/24 15:00 05/11/24 15:00 FiO2 30 05/11/24 12:00 Narrative Exam GEN: Patient off sedation, extunbated, saturating well on nasal cannula. Neuro: Opens eyes to verbal stimuli, purposeless movements, does not follow commands. HEENT: NCAT, trachea midline, dry mucous membranes, NG tube noted. CVS: Afib with tachycardia (~110) S1/S2 present, no M/R/G. No JVD Respi: Diminished lung sounds on left. Coarse lung sounds throughout. ABD: Soft, no grimace to palpation. Skin: warm, dry and intact. Extremities: Pulses 3+, no edema/cyanosis. Objective Labs 05/11/24 07:10 05/11/24 05:32 Labs: Laboratory Results - last 24 hr 05/11/24 05/11/24 05/11/24 04:32 05:32 07:10 WBC 14.9 H RBC 3.77 L Hgb 8.7 L Hct 27.6 L MCV 73 L MCH 23.1 L MCHC 31.5 RDW Std Deviation 49.6 H Plt Count 300 D Neut % (Auto) 86 H Lymph % (Auto) 4 L [place] % (Auto) 8 Eos % (Auto) 0 Baso % (Auto) 0 Neut # (Auto) 12.8 H Lymph # (Auto) 0.5 L [place] # (Auto) 1.2 H Eos # (Auto) 0.1 Baso # (Auto) 0.1 Immature Gran # (Auto) 0.17 H Absolute Nucleated RBC 0.27 H Immature Gran % 1 H Nucleated RBC % 2 H Puncture Site Right Radial ABG pH 7.41 ABG pCO2 43 ABG pO2 81 L D ABG HCO3 27 H ABG O2 Saturation 97 ABG Base Excess 2 FiO2 30 Sodium 133 L Potassium 4.7 Chloride 97 L Carbon Dioxide 26.2 Anion Gap 10 BUN 15 Creatinine 0.8 Estim Creat Clear Calc 45.5 L eGFR > 60 BUN/Creatinine Ratio 19 Glucose 94 Calculated Osmolality 267 L Calcium 12.5 H Corrected Calcium 13.5 H* Total Bilirubin 0.7 AST 50 H ALT 42 Alkaline Phosphatase 89 Total Protein 4.9 L Albumin 2.8 L Globulin 2.1 L Albumin/Globulin Ratio 1.3 ABG Interpretation ABG results: 05/06/24 05/06/24 05/07/24 06:25 09:15 04:15 ABG pH 7.45 7.40 7.40 ABG pCO2 49 H 54 H 51 H ABG pO2 85 406 H D 70 L D ABG HCO3 34 H 34 H 32 H ABG O2 Saturation 97 101 H 94 ABG Base Excess 9 H 8 H 6 H 05/08/24 05/09/24 05/10/24 04:47 04:07 07:34 ABG pH 7.41 7.30 L D 7.38 ABG pCO2 44 53 H 48 ABG pO2 74 L 78 L 61 L ABG HCO3 28 H 26 28 H ABG O2 Saturation 95 95 91 ABG Base Excess 3 -1 3 05/11/24 04:32 ABG pH 7.41 ABG pCO2 43 ABG pO2 81 L D ABG HCO3 27 H ABG O2 Saturation 97 ABG Base Excess 2 Quality Measures Quality Measures sepsis Current suspected stage: sepsis Possible source: pulmonary Blood cultures ordered: yes Antibiotic ordered: Yes Advance care planning discussed with:: spouse, child and sibling Assessment & Plan Assessment Current Active Medications: Generic Name Dose Route Start Last Admin Trade Name Freq PRN Reason Stop Dose Admin Acetaminophen 650 mg 05/06/24 17:37 05/10/24 20:14 Acetaminophen 325 Mg Tablet PO 06/05/24 17:36 650 mg Q4HR PRN Administration PAIN SCALE 1-3 (mild Acetaminophen 650 mg 05/06/24 17:37 Acetaminophen Supp 650 Mg Supp VT 06/05/24 17:36 Q4HR PRN PAIN SCALE 1-3 (mild Albuterol/Ipratropium 3 ml 05/08/24 13:00 05/11/24 13:25 Albuterol/Ipratropium (Duoneb) Rt Melissa 3 Ml Nebu INH 06/07/24 12:59 3 ml Q6HRRT KEM Administration Amiodarone HCl 200 mg 05/08/24 10:00 05/11/24 08:39 Amiodarone Hcl 200 Mg Tablet PO 06/07/24 09:59 200 mg BID KEM Administration Dextrose 25 ml 05/07/24 02:18 Dextrose 50%-Water Inj 50 Ml Syringe IV 06/06/24 02:17 Q15MIN PRN BG 50-70 responsive npo pt Dextrose 50 ml 05/07/24 02:18 Dextrose 50%-Water Inj 50 Ml Syringe IV 06/06/24 02:17 Q15MIN PRN BG <50 OR BG <70 & pt unresponsive Enoxaparin Sodium 40 mg 05/07/24 09:00 05/11/24 08:38 Enoxaparin Sod Inj 40 Mg/0.4 Ml Syringe SC 05/21/24 08:59 40 mg QDAY KEM Administration Glucagon 1 mg 05/07/24 02:18 Glucagon Inj 1 Mg Vial IM Q15MIN PRN BG <70, and no IV access Piperacillin Sod/Tazobactam 50 mls @ 100 mls/hr 05/06/24 17:11 05/11/24 12:14 Sod 3.375 gm/ Sodium Chloride IV 05/13/24 17:10 Infused Q6HR KEM Infusion Norepinephrine Bitartrate 16 mg in 250 mls @ 2.126 mls/hr 05/06/24 18:00 05/09/24 15:48 Levophed In Ns 16mg/250ml IV 06/05/24 17:59 0 mcg/kg/min .Q24H PRN 0 mls/hr PER PROTOCOL Titration Protocol 0.05 MCG/KG/MIN Propofol 1,000 mg in 100 mls @ 1.332 mls/hr 05/10/24 12:45 Diprivan Ivpb IV 06/05/24 09:19 .Q24H PRN PER PROTOCOL Protocol 5 MCG/KG/MIN Dexmedetomidine/Sodium Chloride 400 mcg in 100 mls @ 2.22 mls/hr 05/10/24 12:44 05/11/24 12:00 Precedex Ivpb IV 06/09/24 12:43 0 mcg/kg/hr .Q24H PRN 0 mls/hr Per PROTOCOL Titration Protocol 0.2 MCG/KG/HR Insulin Human Lispro 0 unit 05/07/24 06:00 05/11/24 11:37 Insulin Lispro (Admelog) 1 Unit/0.01 Ml Unit SC 06/06/24 05:59 Not Given Q6HR KEM Protocol Midodrine 10 mg 05/07/24 14:00 05/11/24 14:22 Midodrine 5 Mg Tablet PO 06/06/24 13:59 10 mg TID KEM Administration Morphine Sulfate 1 mg 05/10/24 19:56 Morphine Sulf Inj 10 Mg/Ml Vial IVP 05/15/24 19:55 Q4HR PRN PAIN SCALE 7-10 (Severe Multivitamins/Minerals 15 ml 05/09/24 09:15 05/11/24 08:38 Multivitamin 15 Ml Udc NG 06/08/24 09:14 15 ml QDAY KEM Administration Pantoprazole Sodium 40 mg 05/07/24 09:00 05/11/24 08:38 Pantoprazole Inj 40 Mg Vial IV 06/06/24 08:59 40 mg QDAY KEM Administration Thiamine HCl 100 mg 05/09/24 09:15 05/11/24 08:39 Thiamine Inj 100 Mg/Ml Vial 2 Ml IVP 05/15/24 09:14 100 mg QDAY KEM Administration Plan 83-year-old male with previous medical history of pulmonary mass, COPD on 2 L home oxygen, NIDDM, anemia with previous recent admission at [facility] and [facility] was brought in to the ED due to respiratory distress. He arrived on CPAP. According to the niece at the bedside, during the night he was experience cold sweats, in the morning his saturation started decreased to the 60s and ambulance was called. NEURO: #Acute encephalopathy Patient is no longer sedated, has been extubated, remains altered. Responds to verbal stimuli, nonverbal, does not follow commands. -Treat underlying conditions as appropriate -GoC conversation held with family, deciding between and hospice. CARDIO: #Septic shock 2/2 Post obstructive PNA-resolved #Afib with RVR-rate controlled #Lactic acidosis Patient was given diltiazem 50 mg once. Patient received fluid resuscitation 30 cc/kg per sepsis protocol Patient received amiodarone drip, transition to p.o. Patient received IV digoxin to 50 mcg x 1 Patient weaned off Levophed Fluid resuscitated with 30cc/KG per sepsis protocol. Plan: -telemetry monitoring -Amiodarone 200 mg p.o. twice daily PULM: #Acute hypoxic respiratory failure Ddx: Multifactorial: Secondary to extensive pneumonia plus extensive lung carcinoma plus extensive emphysema Patient has a history of long-term smoking. Pulmonary mass was discovered in 2022, recent biopsy revealed Lung Ca. During this admission, [facility] was contacted for possible transfer for bronchial stent placement, patient was not accepted for transfer due to absent interventional pulmonology service at [facility]. 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 compressing the left pulmonary artery segment and compressing the left bronchial tree. Patient received vancomycin and Zosyn, vancomycin discontinued 05/09 ABG showed pH 7.3, pCO2 53, respiratory rate increased to 18/min Sputum culture showed 1+ stenotrophomonas maltophilia, suspect colonization Patient successfully extubated, saturating well on nasal cannulla Plan: -O2 via nasal cannula, titrate as tolerated. -Zosyn 05/06/24-present -chest physiotherapy -De-escalate Abx as warranted. -Stable for downgrade to med [employer]. GI: Tube feeds ordered via NG tube Tube feeds held due to high residuals -Monitor -resume tube feed when appropriate NEPHRO: #Hypercalcemia of malignancy Patient has acute hypercalciemia, 13.5. Zoledronate 4mg x1 given -monitor -Consider calcitoin if worsening. HEME/ONC: #Microcytic Anemia Iron deficiency anemia Hold iron repletion in setting of acute infection. Continue to monitor CBC ENDO: #No active problems ID: #Post obstructive PNA In setting of compressing lung ca. Patient started on Vanc and Zosyn in light of recent hospitalization. Blood cultures negative Vancomycin discontinued Sputum culture positive for 1+ stenotrophomonas maltophilia -Zosyn 3.375 g IV every 6 hour (started 05/06) MSK: #No active problems SKIN: #Left upper back skin abrasion at site of defibrillator pad. Apply wound dressing and continue daily care. DVT prophylaxis:lovenox GI prophylaxis: pantoprazole Diet: NG tube feeds Cruz: Discontinued Lines: peripheral lines Antibiotics: zosyn CODE STATUS: DNR Plan of care discussed with attending Dr. Simeon. Alexander Elizondo MD PGY-1
--- NOTE | 2024-05-11 19:13 | PC.NURSE ---
Addendum entered by Eliot Arenas RN 05/11/24 19:14: RT made aware. Original Note: Pt oxygen saturation is in the low 80's. RN increased oxygen from 3L NC to 4L NC. RN will notify RT
--- NOTE | 2024-05-11 19:25 | PC.NURSE ---
Addendum entered by Eliot Arenas RN 05/11/24 19:52: supervisor color paste mixing Yamini made aware. Addendum entered by Eliot Arenas RN 05/11/24 19:50: No TF machine availale. Rn will notify charge nurse. Addendum entered by Eliot Arenas RN 05/11/24 19:39: Dr. Gilbert returned phone call and told RM to go ahead and resume TF and follow rate set by the motorsports technician. Addendum entered by Eliot Arenas RN 05/11/24 19:27: Per. Dr. Gilbert continue to hold TF. Original Note: Rn will call hospitalists if they wish to continue tube feedings.
--- NOTE | 2024-05-11 21:04 | PC.NURSE ---
Addendum entered by Eliot Arenas RN 05/11/24 21:07: Per Dr. Gilbert. Okay to hold 2200 dose of midodrine Original Note: Patients blood pressure is 149/74 with a pulse of 100. RN attempting to call hospitalist to ask if he would like RN to administer Midrodrine or to hold it. Hospitalists [phone] and [phone] did not answer call. Will try again.
--- NOTE | 2024-05-11 22:04 | EKG_ITS ---
[facility] Test Date: 2024-05-11 Pat Name: JACKY GUILLERMO Department: Room: 70A Gender: Male Channel Manager: [place] : 1940 Requested By: Alex Faria Order Number: [id number] Reading MD: Alex Faria Measurements Intervals [place] Rate: 116 P: AL: QRS: 75 QRSD: 92 T: 240 QT: 307 QTc: 428 Interpretive Statements ATRIAL FIBRILLATION WITH RAPID VENTRICULAR RESPONSE LOW QRS VOLTAGE IN EXTREMITY LEADS [QRS DEFLECTION < 0.5 mV IN LIMB LEADS] ABNORMAL QRS-T ANGLE [QRS-T AXIS DIFFERENCE > 60] Compared to ECG 07/19/2023 17:27:05 Low QRS voltage now present Sinus tachycardia no longer present /store/S0/[id number].pdf
[2024-05-11] MEDS: MORPHINE SULF INJ 10 MG/ML VIAL IVP (22:11)
--- NOTE | 2024-05-11 22:20 | PC.NURSE ---
GRIPS called for heart rate sustaining in the 140's and 150's. 1mg morphine given during rapid. Per hospitalist . Tounasion hold feeding until heart rate consistantly remains below the 110 area. Patient was also suctioned by RT.
--- NOTE | 2024-05-11 22:45 | PD.RESEVENT ---
Documentation for date of: 05/11/24 Event Note Event Note: Rapid response called sometime around 10pm 05/11/24 for patient's HR in the 150s. Patient seen and examined with vitals of BP 131/82, HR fluctuating from 120 to 170, RR in 20s and oxygen saturation of 90 to 94. Patient's airway, breathing and circulation assessed; patient able to protect airway and is able to slowly open eyes to command. Stat EKG ordered which confirmed atrial fibrillation as previously noted in EKG. Patient had received nightime dosage of amiodarone at around 9:15pm. Patient given 1mg of IV morphine due to agitation which slowed heart rate to 110s. Vitals at the end of the rapid were; BP 142/72, HR 115, RR 19, O2 sat of 99 and afebrile (97.4). Will continue to monitor patient's HR and if blood pressure permits will add rate-control medication and/or additional morphine dose. Alex Faria, PGY-1
[2024-05-12] VITALS (9 sets, daily range): BP systolic 114–137; BP diastolic 63–77; PULSE 92–123; RESP 13–20; TEMP 36.1–36.7; O2SAT 88–99; BMI 18.5
[2024-05-12] MEDS: ALBUTEROL/IPRATROPIUM (Duoneb) RT SOL 3 ML NEBU INH ×2 (01:04→06:32)
[2024-05-12] MEDS: MORPHINE SULF INJ 10 MG/ML VIAL IVP ×2 (02:57→10:32)
[2024-05-12] MEDS: PIPER/TAZO INJ 3.375 GM in SODIUM CHLORIDE 0.9% (P) 50 ML IV ×2 (05:10→12:01)
[2024-05-12 05:59] LABS: Basophils # (Auto) 0.1 Thou/mm3 (0.0-0.2); Basophils % (Auto) 0 % (0-2.5); Eosinophils % (Auto) 0 % (0-10); Hematocrit 32.4 % (41.0-53.0); Hemoglobin 10.1 g/dL (13.5-16.0); Immature Granulocytes % (Auto) 2 % (0-0); Immature Granulocytes Auto 0.39 Thou/mm3 (0.00-0.00); Lymphocytes # (Auto) 0.6 Thou/mm3 (1.0-4.8); Lymphocytes % (Auto) 3 % (10-50); Mean Corpuscular HGB Conc 31.2 g/dl (31.0-37.0); Mean Corpuscular Hemoglobin 23.1 pg (25.0-35.0); Mean Corpuscular Volume 74 fL (80-100); Monocytes # (Auto) 1.8 Thou/mm3 (0.0-0.8); Monocytes % (Auto) 9 % (0-12); Neutrophils # (Auto) 18.6 Thou/mm3 (1.8-7.7); Neutrophils % (Auto) 86 % (37-80); Nucleated Red Blood Cell # 0.34 Thou/mm3 (0.00-0.00); Nucleated Red Blood Cell % 2 /100 WBC (0); Platelet Count 325 Thou/mm3 (140-440); RDW Standard Deviation 50.4 fL (35.1-43.9); Red Blood Count 4.38 Miln/mm3 (4.50-5.90); White Blood Count 21.6 Thou/mm3 (3.8-10.6)
[2024-05-12 06:33] LABS: Alanine Aminotransferase 65 U/L (10-49); Albumin, Serum 3.2 gm/dL (3.4-4.8); Albumin/Globulin Ratio 1.4 (1.2-2.2); Alkaline Phosphatase 90 U/L (46-116); Anion Gap 13 (7-16); Aspartate Amino Transferase 90 U/L (0-34); BUN/Creatinine Ratio 20 Ratio (12-20); Bilirubin,Total 0.9 mg/dL (0.3-1.2); Blood Urea Nitrogen 18 mg/dL (9-23); Carbon Dioxide 26.5 mMol/L (20.0-31.0); Chloride 96 mMol/L (98-107); Creatinine (Component) 0.9 mg/dL (0.6-1.3); Estimated Creatinine Clearance 40.4 mL/min (>60); Globulin 2.3 gm/dL (2.3-3.5); Glucose 71 mg/dL (74-106); Osmolality,Calculated 270 (275-295); Potassium 4.5 mMol/L (3.4-5.1); Sodium 135 mMol/L (136-145); Total Protein 5.5 gm/dL (5.7-8.2); eGFR > 60 See Note
[2024-05-12 06:48] LABS: Calcium 13.5 mg/dL (8.3-10.6); Calcium (Corrected) 14.1 mg/dL (8.5-10.1)
--- NOTE | 2024-05-12 07:18 | PC.NURSE ---
JUANITA Mccabe attempted to notify the day team that the patient has a critical calcium of 13.5 and a critical corrected calcium of 14.1. RN also needed to notify the day team that the NG tube the patient had came out. NG tube is no longer at 60.
[2024-05-12] MEDS: ENOXAPARIN SOD INJ 40 MG/0.4 ML SYRINGE SC (09:05)
[2024-05-12] MEDS: MULTIVITAMIN 15 ML UDC NG (09:05)
[2024-05-12] MEDS: THIAMINE INJ 100 MG/ML VIAL 2 ML IVP (09:05)
[2024-05-12] MEDS: PANTOPRAZOLE INJ 40 MG VIAL IV (09:05)
[2024-05-12] MEDS: AMIODARONE HCL 200 MG TABLET NG (09:06)
--- NOTE | 2024-05-12 10:24 | PC.SS ---
SS follow up note; SS was informed by Dr. Morales and Dr Peacock if SS could contact patient's daughter to establish a goal of care meeting with her and family. SS contacted patient's daughter, Bessy and informed her that 'melchor would like to have a goals of care meeting today. Patient's daughter informed SS that hospice conversation had already been talked about, however she needed to discuss furthermore with family before perusing hospice services. Bessy requested for goals of care meeting to be tomorrow morning. SS updated Team A.
--- NOTE | 2024-05-12 12:38 | PD.RESEVENT ---
Documentation for date of: 05/12/24 Event Note Event Note: Goals of care meeting with patient's family, FAROOQ Reese, and JUANITA Bauer. Followed up with patient's family regarding their goals of care discussion yesterday. Discussed patient's guarded prognosis and current state. Patient family decided to pursue COMFORT CARE for patient. Attending Dr. Hicks made aware. Nan Hay MD PGY-3
--- NOTE | 2024-05-12 12:54 | PC.SS ---
SS follow up note; Goals of care meeting was held at patient's bedside with the family, DR. Peacock, ELLIOTT and patient's nurse, Liane. Dr. Peacock discussed the patient's deteriorating condition with family, emphasizing the need to consider transitioning the patient into comfort care measures. The family expressed their agreement to proceed with transitioning the patient into comfort care. SS will stand by for further needs.
[2024-05-12] MEDS: Morphine IV Drip 100mg/100ml 100 ML IV (12:55)
--- NOTE | 2024-05-12 13:01 | PD.RESPRO ---
Documentation for date of: 05/12/24 Subjective Subjective Interval history: Patient is an 83-year-old male with a past medical history of COPD on 2 L of oxygen at home, [id number] diabetes mellitus type 2, hyperlipidemia, abdominal aortic aneurysm, tobacco use disorder (approximately over 71-year pack year history), and is working diagnosis to rule out pulmonary malignancy during previous admission. On (09/07/2022) patient received upper lung biopsy showing benign bronchial epithelial cells a pulmonary nodules found on chest x-ray. Patient admitted on 05/06/2024 directly into ICU for acute hypoxic respiratory failure likely post-obstructive pneumonia and septic shock- requiring intubation. Patient downgraded to internal medicine MedSurg floor on 05/12/2024 with poor prognosis. Patient experienced a rapid overnight with tachycardia, heart rate 150, saturating between 90 to 94% and EKG ordered showing atrial fibrillation. Patient examined at bedside Exam Vital Signs Temp Pulse Resp BP Pulse Ox O2 Del Method O2 Flow Rate 97.0 F 95 13 114/63 88 L Oxy Mask 10 05/12/24 11:55 05/12/24 11:55 05/12/24 11:55 05/12/24 11:55 05/12/24 11:55 05/12/24 11:55 05/12/24 11:55 FiO2 30 05/11/24 12:00 Objective Labs 05/12/24 04:25 05/12/24 04:25 Labs: Laboratory Results - last 24 hr 05/12/24 04:25 WBC 21.6 H D RBC 4.38 L Hgb 10.1 L Hct 32.4 L MCV 74 L MCH 23.1 L MCHC 31.2 RDW Std Deviation 50.4 H Plt Count 325 Neut % (Auto) 86 H Lymph % (Auto) 3 L Curry % (Auto) 9 Eos % (Auto) 0 Baso % (Auto) 0 Neut # (Auto) 18.6 H Lymph # (Auto) 0.6 L Curry # (Auto) 1.8 H Eos # (Auto) 0.0 Baso # (Auto) 0.1 Immature Gran # (Auto) 0.39 H Absolute Nucleated RBC 0.34 H Immature Gran % 2 H Nucleated RBC % 2 H Sodium 135 L Potassium 4.5 Chloride 96 L Carbon Dioxide 26.5 Anion Gap 13 BUN 18 Creatinine 0.9 Estim Creat Clear Calc 40.4 L eGFR > 60 BUN/Creatinine Ratio 20 Glucose 71 L Calculated Osmolality 270 L Calcium 13.5 H* Corrected Calcium 14.1 H* Magnesium 2.0 Total Bilirubin 0.9 AST 90 H ALT 65 H Alkaline Phosphatase 90 Total Protein 5.5 L Albumin 3.2 L Globulin 2.3 Albumin/Globulin Ratio 1.4 ABG Interpretation ABG results: 05/06/24 05/06/24 05/07/24 06:25 09:15 04:15 ABG pH 7.45 7.40 7.40 ABG pCO2 49 H 54 H 51 H ABG pO2 85 406 H D 70 L D ABG HCO3 34 H 34 H 32 H ABG O2 Saturation 97 101 H 94 ABG Base Excess 9 H 8 H 6 H 05/08/24 05/09/24 05/10/24 04:47 04:07 07:34 ABG pH 7.41 7.30 L D 7.38 ABG pCO2 44 53 H 48 ABG pO2 74 L 78 L 61 L ABG HCO3 28 H 26 28 H ABG O2 Saturation 95 95 91 ABG Base Excess 3 -1 3 05/11/24 04:32 ABG pH 7.41 ABG pCO2 43 ABG pO2 81 L D ABG HCO3 27 H ABG O2 Saturation 97 ABG Base Excess 2 Quality Measures Quality Measures sepsis Possible source: pulmonary Blood cultures ordered: yes Assessment & Plan Assessment Current Active Medications: Generic Name Dose Route Start Last Admin Trade Name Freq PRN Reason Stop Dose Admin Morphine Sulfate 100 mls @ 1 mls/hr 05/12/24 12:35 Morphine Sulfate Iv Drip 100mg/100ml IV 05/17/24 12:34 .Q24H PRN PAIN (COMFORT CARE) Protocol 1 MG/HR
--- NOTE | 2024-05-12 13:41 | DES_ITS ---
<Statement entered by Giacnarlo Hicks MD - 05/12/24 17:03> I have discussed and was present for the essential components of the history, physical examination, diagnosis, and treatment plan with the resident. I agree with the patient's care as documented by the resident and amended herein by me. Giancarlo Hicks MD. Documentation for date of: 05/12/24 Pronouncement Note Date and Time of Date of : 05/12/24 Time of : 13:36 PCOD Preliminary cause of : Cardiopulmonary arrest Summary Additional details: Our team was called to pronounce the of patient Wilmer Ma in Room 370. Upon examination, no active heart or breath sounds were noted after 2 continuous minute of auscultation. Pupils were unresponsive to light, corneal reflexes absent, patient unresponsive to external stimuli. Patient was pronounced on 1:36 PM at [facility]. Attending Dr. Hicks was notified. The patient's family was present at bedside & consoled. Additional Data Confirmation of : no pulse, no respirations, no heart sounds and pupils fixed and dilated Family: at bedside Attending/PCP notified?: Yes Attending physician: Giancarlo Hicks MD Was code activated?: No
--- NOTE | 2024-05-12 13:41 | DES_ITS ---
<Statement entered by Giancarlo Hicks MD - 05/12/24 17:03> I have discussed and was present for the essential components of the history, physical examination, diagnosis, and treatment plan with the resident. I agree with the patient's care as documented by the resident and amended herein by me. Giancarlo Hicks MD. Documentation for date of: 05/12/24 Summary Date and Time Date of admission: 05/06/24 17:38 Date of : 05/12/24 Time of : 13:36 Summary Details: Overall: Patient is an 83-year-old male with a past medical history of COPD on 2 L of oxygen at home, [id number] diabetes mellitus type 2, hyperlipidemia, abdominal aortic aneurysm, tobacco use disorder (approximately over 71-year pack year history), and is working diagnosis to rule out pulmonary malignancy during previous admission. On (09/07/2022) patient received upper lung biopsy showing benign bronchial epithelial cells a pulmonary nodules found on chest x-ray. Patient admitted on 05/06/2024 directly into ICU for acute hypoxic respiratory failure likely post-obstructive pneumonia and septic shock- requiring intubation. Patient downgraded to internal medicine MedSurg floor on 05/12/2024 with poor prognosis. ER Course: Vitals: Temperature 101, heart rate 123, RR 18, BP 57/37, SpO2 88% on CPAP CBC (05/06/20202023) WBC 19.2 (high) CT MP (05/06/2024) sodium 134, K4.2, chloride 96 (L) Bicarb 31.4, corrected calcium 10.7 L , lactate dehydrogenase 333, Lactic Acid 5.6, MAP <65 Patient started on antibiotics vancomycin and Zosyn ICU consulted, admitted to ICU on 05/07/2024 Hospital Course: During hospital stay, goals of care was discussed with family on 05/12/2024 and discussion was open to comfort care measures only given patient's poor prognosis. Family agreed to make patient comfort care and all life saving medication withdrawn, thus morphine drip started. At 13: 36 hours patient was pronounced with family notified and at bedside likely secondary to cardiopulmonary event. Diagnosis: #Comfort Care #Goals of Care #Acute Encephalopathy #Septic Shock 2/2 post obstructive PNA, resolved, #Post-obstructive PNA #Atrial Fibrilation w/ RVR-rate controlled, resolved #Acute hypoxic respiratory failure, resolved #NG tube tube feeds, resolved #Hypercalcemia, likely secondary to malignancy #Microcytic Anemia - The patient's plan was discussed with attending Dr. Hicks and senior residents Dr. Satnam Sebastian MD PGY1 Internal Medicine Additional Data Confirmation of as documented by pronouncing clinician: no pulse, no respirations, no heart sounds and pupils fixed and dilated Family: at bedside Attending/PCP notified?: Yes Attending physician: Giancarlo Hicks MD Was code activated?: No Visit Providers Provider Primary care physician: Zion Pérez MD Consults: 05/07/24 17:36 Consult to Cardiology Routine Comment: Consulting Provider: Jean Carlos Grimes 05/07/24 19:56 Referral Registered Dietitian Routine Comment: 05/12/24 12:37 Referral Marlen Stat Comment: [facility] Discharge Plan Plan Patient condition on transfer: Stable Prescriptions/Referrals Prescriptions/Med Rec: No Action Trelegy Ellipta 200-62.5-25 mcg blister with device 1 inh inhalation QDAY Qty: 60 0RF diltiazem HCl [DILT-CD] 300 mg Capsule,Extended Release 24hr 300 mg PO QDAY ferrous sulfate 325 mg (65 mg iron) Tablet 325 mg PO QDAY Eliquis 2.5 mg Tablet 2.5 mg PO BID metformin 500 mg tablet 500 mg PO BID Patient Comments: TAKE 1 TABLET BY MOUTH TWICE A DAY WITH A MEAL prednisone 10 mg tablet 10 mg PO QDAY Hold Instructions: Resume on 04/06/23. continue once one week of prednisone 20mg PO daily is completed Patient Comments: TAKE 1 TABLET BY MOUTH EVERY DAY FOR 14 DAYS simvastatin 20 mg tablet 20 mg PO HS Patient Comments: TAKE 1 TABLET BY MOUTH EVERY DAY IN THE EVENING FOR 90 DAYS albuterol sulfate [Ventolin HFA] 90 mcg/actuation HFA aerosol inhaler 90 mcg INHALATION TID PRN (Reason: Shortness Of Breath Or Wheezing) Patient Comments: INHALE 2 PUFFS BY MOUTH 3 TIMES A DAY NEEDED Referrals: Zion Pérez MD [Primary Care Provider] - Patient/Caregiver Discharge Instructions Print Language: emanuel (moy)
--- NOTE | 2024-05-12 14:49 | PC.NURSE ---
Contacted [facility] and spoke with Daphne, patient is not a donor. Reference number [id number]. Patient is not a coroners case, so post mortem care was completed and all lines were removed. Patient family is requesting full 4 hours to keep patient in room to allow time for family. home preference is [facility]. Pickup time is scheduled for 1800.
== END 2024-05-12 13:36 | disposition expired | DRG 870 ==
LOC: SERX 08:37 → SERHOLD 19:16 → S2SX 05-07 10:10 → SERHOLD 05-10 13:26 → S2SX 05-11 09:13 → S3SX 05-11 17:46
PROVIDERS: Student in an Organized Health Care Education/Training Program; Admitting Provider Internal Medicine Critical Care Medicine; Emergency Provider Emergency Medicine; PCP Family Medicine; Visit Provider Internal Medicine
DX: A41.9 Sepsis, unspecified organism (principal); J18.9 Pneumonia, unspecified organism; J96.21 Acute and chronic respiratory failure with hypoxia; R65.21 Severe sepsis with septic shock; R64 Cachexia; Z68.1 Body mass index [BMI] 19.9 or less, adult; J44.0 Chronic obstructive pulmonary disease with (acute) lower respiratory infection; C34.90 Malignant neoplasm of unspecified part of unspecified bronchus or lung; E87.1 Hypo-osmolality and hyponatremia; E87.20 Acidosis, unspecified; G93.40 Encephalopathy, unspecified; I50.32 Chronic diastolic (congestive) heart failure; E11.9 Type 2 diabetes mellitus without complications; I48.91 Unspecified atrial fibrillation; D50.9 Iron deficiency anemia, unspecified; E78.5 Hyperlipidemia, unspecified; E83.52 Hypercalcemia; S20.412A Abrasion of left back wall of thorax, initial encounter; I46.9 Cardiac arrest, cause unspecified; I11.0 Hypertensive heart disease with heart failure; I08.3 Combined rheumatic disorders of mitral, aortic and tricuspid valves; E88.09 Other disorders of plasma-protein metabolism, not elsewhere classified; Z66 Do not resuscitate; Z51.5 Encounter for palliative care; Z99.81 Dependence on supplemental oxygen; Z79.84 Long term (current) use of oral hypoglycemic drugs; Z87.891 Personal history of nicotine dependence; Y84.8 Other medical procedures as the cause of abnormal reaction of the patient, or of later complication, without mention of misadventure at the time of the procedure
CPT/HCPCS: 36415; 36600; 70450; 71045; 71260; 74177; 80053; 80202; 80307; 80329; 81001; 82270; 82803; 83540; 83550; 83605; 83615; 83690; 83735; 83880; 84100; 84145; 84443; 84484; 85025; 85610; 85730; 87040; 87077; 87081; 87086; 87186; 87205; 87811; 93005; 93225; 93306; 94002; 94003; 94640; 96365; 96366; 96367; 99291; 99292; A4649; A9270; J0131; J0283; J1160; J1650; J2270; J2470; J2543; J2704; J3010; J3370; J3371; J3411; J3475; J3489; J3490; J7030; J7050; Q9967; G0480